=== PATIENT | male | born 1980 | race Two or more races ===

== ENCOUNTER 2019-06-28 13:00 | Inpatient (IN) | payer BC ==
[2019-06-28] MEDS ORDERED: Sodium Chloride 0.9% 10 ML Syringe FLUSH PRN (13:08)
[2019-06-28] MEDS ORDERED: Sodium Chloride 0.9% 1,000 ML IV SCH (13:15)
--- NOTE | 2019-06-28 14:37 | CT ---
Head CT Technique: Multiple axial sections through the brain were obtained. Intravenous contrast was not utilized. Comparison: No prior intracranial imaging is available. Findings: Ventricles along with basal cisterns and sulci over the convexities are within normal limits for the patient's age. No abnormal parenchymal densities are seen. No evidence of intracranial hemorrhage. No midline shift or mass effect is seen. Bone window settings were reviewed which show no acute calvarial abnormality. Mastoid sinuses are clear. Visualized paranasal sinuses are also clear. Impression: 1. Nothing acute is seen on noncontrast head CT exam. Diagnostic code #1
--- NOTE | 2019-06-28 14:39 | EDM.PDOC ---
ED HPI GENERAL MEDICAL PROBLEM - General Chief Complaint: Syncope Stated Complaint: [facility] Time Seen by Provider: 06/28/19 13:08 Source of Information: Reports: Patient, EMS, Family History Limitations: Reports: No Limitations - History of Present Illness INITIAL COMMENTS - FREE TEXT/NARRATIVE: The patient presents by [facility] for syncope. He was at work and complained that he did not feel well. He then put his hand on his knees and then he laid over on the ground. He was drooling and not responding. He had no seizure activity. When he came to he was quite when he talked and was confused. He knew who he was and where he was but not the time. He has no headache, fever, chills, cough, congestion, runny nose, chest pain, shortness of breath, abdominal pain, nausea or vomiting. He did not take anything to hurt himself. He has been depressed lately his and him are getting a divorce. He has type II diabetes and his blood sugar was good on the way in by EMS. Onset: Sudden Duration: Minutes: Severity: Moderate Improves with: Reports: None Worsens with: Reports: None Associated Symptoms: Reports: Confusion. Denies: Chest Pain, Cough, Fever/ Chills, Headaches, Nausea/Vomiting, Shortness of Breath - Related Data Allergies Allergy/AdvReac Type Severity Reaction Status Date / Time No Known Allergies Allergy Verified 06/28/19 13:05 Past Medical History Cardiovascular History: Reports: High Cholesterol Endocrine/Metabolic History: Reports: Diabetes, Type I Social & Family History - Tobacco Use Smoking Status *Q: Current Every Day Smoker Years of Tobacco use: 2 Packs/Tins Daily: 0.5 - Caffeine Use Caffeine Use: Reports: Energy Drinks - Recreational Drug Use Recreational Drug Use: No ED ROS GENERAL - Review of Systems Review Of Systems: See Below Constitutional: Reports: Malaise, Weakness, Fatigue HEENT: Reports: No Symptoms Respiratory: Reports: No Symptoms Cardiovascular: Reports: Syncope. Denies: Chest Pain Endocrine: Reports: No Symptoms GI/Abdominal: Reports: No Symptoms : Reports: No Symptoms Musculoskeletal: Reports: No Symptoms Skin: Reports: No Symptoms Neurological: Reports: Confusion, Syncope, Weakness. Denies: Headache - Physical Exam Exam: See Below Exam Limited By: No Limitations General Appearance: Alert, No Apparent Distress Ears: Normal External Exam Nose: Normal Inspection Head Exam: Atraumatic, Normocephalic Neck: Normal Inspection Respiratory/Chest: No Respiratory Distress, Lungs Clear, Normal Breath Sounds Cardiovascular: Regular Rate, Rhythm, No Edema, No Murmur Neuro Exam (Abbreviated): Other (Sleepy but he will wake up and follow commands and answer questions) EKG INTERPRETATION EKG Date: 06/28/19 Time: 13:17 Rhythm: Other (Sinus tachycardia) Rate (Beats/Min): 106 [place]: Normal P-Wave: Present QRS: Normal ST-T: Other (Flattened T waves in the inferior leads) QT: Normal Course - Vital Signs Last Recorded V/S: Last Vital Signs Temp 97.1 F 06/28/19 13:40 Pulse 116 H 06/28/19 15:38 Resp 25 H 06/28/19 15:38 BP 98/63 06/28/19 15:38 Pulse Ox 95 06/28/19 15:04 - Orders/Labs/Meds Orders: Active Orders 24 hr Category Date Time Status Cardiac Monitoring [RC] . DIRECTED Care 06/28/19 13:08 Active EKG Documentation Completion [RC] STAT Care 06/28/19 13:14 Active Peripheral IV Care [RC] . DIRECTED Care 06/28/19 13:09 Active Lactated Ringers [Ringers, Lactated] 1,000 ml Med 06/28/19 16:06 Active IV .BOLUS Sodium Chloride 0.9% [Normal Saline] 1,000 ml Med 06/28/19 13:15 Active IV .BOLUS Sodium Chloride 0.9% [Saline Flush] Med 06/28/19 13:08 Active 10 ml FLUSH ASDIRECTED PRN Peripheral IV Insertion Adult [OM.PC] Stat Oth 06/28/19 13:08 Ordered Medication Orders Sodium Chloride (Normal Saline) 1,000 mls @ 1,000 mls/hr IV .BOLUS OTTONIEL Last Admin: 06/28/19 13:23 Dose: 1,000 mls/hr Lactated Ringer's (Ringers, Lactated) 1,000 mls @ 1,000 mls/hr IV .BOLUS ONE Stop: 06/28/19 17:05 Last Admin: 06/28/19 16:18 Dose: 1,000 mls/hr Sodium Chloride (Saline Flush) 10 ml FLUSH ASDIRECTED PRN PRN Reason: Keep Vein Open Last Admin: 06/28/19 13:25 Dose: 10 ml Labs: Laboratory Tests 06/28/19 06/28/19 06/28/19 Range/Units 13:30 13:30 13:30 WBC 11.73 H (4.23-9.07) K/mm3 RBC 5.49 (4.63-6.08) M/mm3 Hgb 17.5 (13.7-17.5) gm/dl Hct 51.6 H (40.1-51.0) % MCV 94.0 H (79.0-92.2) fl MCH 31.9 (25.7-32.2) pg MCHC 33.9 (32.2-35.5) g/dl RDW Std Deviation 45.6 H (35.1-43.9) fL Plt Count 214 (163-337) K/mm3 MPV 10.8 (9.4-12.3) fl Neut % (Auto) 74.8 H (34.0-67.9) % Lymph % (Auto) 16.8 L (21.8-53.1) % [place] % (Auto) 7.4 (5.3-12.2) % Eos % (Auto) 0.6 L (0.8-7.0) Baso % (Auto) 0.2 (0.1-1.2) % Neut # (Auto) 8.78 H (1.78-5.38) K/mm3 Lymph # (Auto) 1.97 (1.32-3.57) K/mm3 [place] # (Auto) 0.87 H (0.30-0.82) K/mm3 Eos # (Auto) 0.07 (0.04-0.54) K/mm3 Baso # (Auto) 0.02 (0.01-0.08) K/mm3 D-Dimer, Quantitative (0.19-0.50) mg/L Sodium 142 (136-145) mEq/L Potassium 3.5 (3.5-5.1) mEq/L Chloride 104 (98-107) mEq/L Carbon Dioxide 25 (21-32) mEq/L Anion Gap 16.5 H (5-15) BUN 15 (7-18) mg/dL Creatinine 1.0 (0.7-1.3) mg/dL Est Cr Clr Drug Dosing 103.42 mL/min Estimated GFR (MDRD) > 60 (>60) mL/min BUN/Creatinine Ratio 15.0 (14-18) Glucose 144 H (74-106) mg/dL Calcium 9.4 (8.5-10.1) mg/dL Magnesium 1.9 (1.8-2.4) mg/dl Total Bilirubin 1.2 H (0.2-1.0) mg/dL AST 17 (15-37) U/L ALT 40 (16-63) U/L Alkaline Phosphatase 58 (46-116) U/L Troponin I < 0.017 (0.00-0.056) ng/mL Total Protein 8.1 (6.4-8.2) g/dl Albumin 4.1 (3.4-5.0) g/dl Globulin 4.0 gm/dL Albumin/Globulin Ratio 1.0 (1-2) Free T4 (0.76-1.46) ng/dL TSH 3rd Generation 5.026 H (0.358-3.74) uIU/mL Salicylates (2.8-20) mg/dL Urine Opiates Screen (QAFDLJ=134) Ur Buprenorphine Scrn (CUTOFF=10) Ur Oxycodone Screen (NAG4QP=980) Urine Methadone Screen (CGA7CH=554) Ur Propoxyphene Screen (ZPPNXZ=881) Acetaminophen (10-30) ug/mL Ur Barbiturates Screen (RQBOVY=586) Ur Tricyclics Screen (UYFTPI=920) Ur Phencyclidine Scrn (CUTOFF=25) Ur Amphetamine Screen (XHNMED=942) U Methamphetamines Scrn (VIPYLW=995) U Benzodiazepines Scrn (WISTCZ=134) U Cocaine Metab Screen (HHWIPA=559) U Marijuana (THC) Screen (CUTOFF=50) Ethyl Alcohol 0.00 (0.00) gm% 06/28/19 06/28/19 06/28/19 Range/Units 13:30 13:30 13:30 WBC (4.23-9.07) K/mm3 RBC (4.63-6.08) M/mm3 Hgb (13.7-17.5) gm/dl Hct (40.1-51.0) % MCV (79.0-92.2) fl MCH (25.7-32.2) pg MCHC (32.2-35.5) g/dl RDW Std Deviation (35.1-43.9) fL Plt Count (163-337) K/mm3 MPV (9.4-12.3) fl Neut % (Auto) (34.0-67.9) % Lymph % (Auto) (21.8-53.1) % [place] % (Auto) (5.3-12.2) % Eos % (Auto) (0.8-7.0) Baso % (Auto) (0.1-1.2) % Neut # (Auto) (1.78-5.38) K/mm3 Lymph # (Auto) (1.32-3.57) K/mm3 [place] # (Auto) (0.30-0.82) K/mm3 Eos # (Auto) (0.04-0.54) K/mm3 Baso # (Auto) (0.01-0.08) K/mm3 D-Dimer, Quantitative (0.19-0.50) mg/L Sodium (136-145) mEq/L Potassium (3.5-5.1) mEq/L Chloride (98-107) mEq/L Carbon Dioxide (21-32) mEq/L Anion Gap (5-15) BUN (7-18) mg/dL Creatinine (0.7-1.3) mg/dL Est Cr Clr Drug Dosing mL/min Estimated GFR (MDRD) (>60) mL/min BUN/Creatinine Ratio (14-18) Glucose (74-106) mg/dL Calcium (8.5-10.1) mg/dL Magnesium (1.8-2.4) mg/dl Total Bilirubin (0.2-1.0) mg/dL AST (15-37) U/L ALT (16-63) U/L Alkaline Phosphatase (46-116) U/L Troponin I (0.00-0.056) ng/mL Total Protein (6.4-8.2) g/dl Albumin (3.4-5.0) g/dl Globulin gm/dL Albumin/Globulin Ratio (1-2) Free T4 1.31 (0.76-1.46) ng/dL TSH 3rd Generation (0.358-3.74) uIU/mL Salicylates 0.8 L (2.8-20) mg/dL Urine Opiates Screen (BOJLCM=643) Ur Buprenorphine Scrn (CUTOFF=10) Ur Oxycodone Screen (STV3JS=796) Urine Methadone Screen (MCK6SF=593) Ur Propoxyphene Screen (FKOTEH=191) Acetaminophen 0 L (10-30) ug/mL Ur Barbiturates Screen (GEMLXG=605) Ur Tricyclics Screen (YADWWH=506) Ur Phencyclidine Scrn (CUTOFF=25) Ur Amphetamine Screen (RTSDYB=318) U Methamphetamines Scrn (ZRVBYY=108) U Benzodiazepines Scrn (YNFZAK=239) U Cocaine Metab Screen (IKTSNN=565) U Marijuana (THC) Screen (CUTOFF=50) Ethyl Alcohol (0.00) gm% 06/28/19 06/28/19 Range/Units 13:30 15:26 WBC (4.23-9.07) K/mm3 RBC (4.63-6.08) M/mm3 Hgb (13.7-17.5) gm/dl Hct (40.1-51.0) % MCV (79.0-92.2) fl MCH (25.7-32.2) pg MCHC (32.2-35.5) g/dl RDW Std Deviation (35.1-43.9) fL Plt Count (163-337) K/mm3 MPV (9.4-12.3) fl Neut % (Auto) (34.0-67.9) % Lymph % (Auto) (21.8-53.1) % [place] % (Auto) (5.3-12.2) % Eos % (Auto) (0.8-7.0) Baso % (Auto) (0.1-1.2) % Neut # (Auto) (1.78-5.38) K/mm3 Lymph # (Auto) (1.32-3.57) K/mm3 [place] # (Auto) (0.30-0.82) K/mm3 Eos # (Auto) (0.04-0.54) K/mm3 Baso # (Auto) (0.01-0.08) K/mm3 D-Dimer, Quantitative 0.22 (0.19-0.50) mg/L Sodium (136-145) mEq/L Potassium (3.5-5.1) mEq/L Chloride (98-107) mEq/L Carbon Dioxide (21-32) mEq/L Anion Gap (5-15) BUN (7-18) mg/dL Creatinine (0.7-1.3) mg/dL Est Cr Clr Drug Dosing mL/min Estimated GFR (MDRD) (>60) mL/min BUN/Creatinine Ratio (14-18) Glucose (74-106) mg/dL Calcium (8.5-10.1) mg/dL Magnesium (1.8-2.4) mg/dl Total Bilirubin (0.2-1.0) mg/dL AST (15-37) U/L ALT (16-63) U/L Alkaline Phosphatase (46-116) U/L Troponin I (0.00-0.056) ng/mL Total Protein (6.4-8.2) g/dl Albumin (3.4-5.0) g/dl Globulin gm/dL Albumin/Globulin Ratio (1-2) Free T4 (0.76-1.46) ng/dL TSH 3rd Generation (0.358-3.74) uIU/mL Salicylates (2.8-20) mg/dL Urine Opiates Screen Negative (LTGKFJ=198) Ur Buprenorphine Scrn Negative (CUTOFF=10) Ur Oxycodone Screen Negative (NYE8GR=838) Urine Methadone Screen Negative (SSK0GS=722) Ur Propoxyphene Screen Negative (OFGKRL=924) Acetaminophen (10-30) ug/mL Ur Barbiturates Screen Negative (TIGYUU=034) Ur Tricyclics Screen Negative (XWFDEK=865) Ur Phencyclidine Scrn Negative (CUTOFF=25) Ur Amphetamine Screen Negative (FCXUJF=968) U Methamphetamines Scrn Negative (AYQNMD=242) U Benzodiazepines Scrn Negative (FBAQIT=941) U Cocaine Metab Screen Negative (PIFRBZ=915) U Marijuana (THC) Screen Negative (CUTOFF=50) Ethyl Alcohol (0.00) gm% Meds: Medications Generic Name Dose Route Start Last Admin Trade Name Freq PRN Reason Stop Dose Admin Sodium Chloride 1,000 mls @ 1,000 mls/hr 06/28/19 13:15 06/28/19 13:23 Normal Saline IV 1,000 mls/hr .BOLUS OTTONIEL Administration Lactated Ringer's 1,000 mls @ 1,000 mls/hr 06/28/19 16:06 06/28/19 16:18 Ringers, Lactated IV 06/28/19 17:05 1,000 mls/hr .BOLUS ONE Administration Sodium Chloride 10 ml 06/28/19 13:08 06/28/19 13:25 Saline Flush FLUSH 10 ml ASDIRECTED PRN Administration Keep Vein Open - Re-Assessments/Exams Free Text/Narrative Re-Assessment/Exam: 06/28/19 14:51 I ordered an IV NS 1L bolus, EKG, CT of his head, labs and urine drug screen. 06/28/19 14:59 His EKG shows a sinus tachycardia with some flattened T waves. The CT of his head shows nothing acute. 06/28/19 15:00 His WBC was elevated at 11.73. His D-dimer is negative. His glucose is elevated at 144. His free T4 is normal. His TSH is elevated at 5.026. His salicylates and acetaminophen are normal. His ETOH is 0. I am waiting for his drug screen. 06/28/19 16:25 His drug screen is negative. At this time, I am not sure what is going on with him. His soon to be ex- thinks he overdosed but his brother does not think that is possible. He has been with him the past few weeks. His BP did drop to 67. I ordered another liter of fluid. That did come back up before the bolus is in. I called Dr Joyce and he agreed to the admission. He wanted our secondary social studies teacher to come see him. Departure - Departure Time of Disposition: 16:30 Disposition: Refer to Observation Condition: Fair Clinical Impression: Confusion Syncope Qualifiers: Syncope type: unspecified Qualified Code(s): R55 - Syncope and collapse Hypotension Qualifiers: Hypotension type: unspecified hypotension type Qualified Code(s): I95.9 - Hypotension, unspecified - Discharge Information Referrals: PCP,Unknown [Primary Care Provider] - Forms: ED Department Discharge - My Orders Last 24 Hours: My Active Orders 06/28/19 13:08 Cardiac Monitoring [RC] . DIRECTED Sodium Chloride 0.9% [Saline Flush] 10 ml FLUSH ASDIRECTED PRN Peripheral IV Insertion Adult [OM.PC] Stat 06/28/19 13:09 Peripheral IV Care [RC] . DIRECTED 06/28/19 13:14 EKG Documentation Completion [RC] STAT 06/28/19 13:15 Sodium Chloride 0.9% [Normal Saline] 1,000 ml IV .BOLUS 06/28/19 16:06 Lactated Ringers [Ringers, Lactated] 1,000 ml IV .BOLUS - Assessment/Plan Last 24 Hours: My Active Orders 06/28/19 13:08 Cardiac Monitoring [RC] . DIRECTED Sodium Chloride 0.9% [Saline Flush] 10 ml FLUSH ASDIRECTED PRN Peripheral IV Insertion Adult [OM.PC] Stat 06/28/19 13:09 Peripheral IV Care [RC] . DIRECTED 06/28/19 13:14 EKG Documentation Completion [RC] STAT 06/28/19 13:15 Sodium Chloride 0.9% [Normal Saline] 1,000 ml IV .BOLUS 06/28/19 16:06 Lactated Ringers [Ringers, Lactated] 1,000 ml IV .BOLUS
[2019-06-28] MEDS ORDERED: Lactated Ringers 1,000 ML IV ONE (16:06)
[2019-06-28] MEDS ORDERED: Lactated Ringers 1,000 ML IV SCH (17:30)
[2019-06-28] MEDS ORDERED: Docusate Sodium 100 MG Cap PO PRN (18:10)
[2019-06-28] MEDS ORDERED: Bisacodyl 5 MG Tab PO PRN (18:10)
[2019-06-28] MEDS ORDERED: Albuterol/Ipratropium 3.0-0.5 MG/3 ML Neb Soln NEB PRN (18:10)
[2019-06-28] MEDS ORDERED: Promethazine 6.25 MG in Sodium Chloride 0.9% 50 ML IV PRN (18:10)
[2019-06-28] MEDS ORDERED: Polyethylene Glycol 3350 Powder 17 GM Packet PO PRN (18:10)
[2019-06-28] MEDS ORDERED: Ondansetron 4 MG/2 ML SDV IV PRN (18:10)
[2019-06-28] MEDS ORDERED: Acetaminophen 325 MG Tab PO PRN (18:10)
[2019-06-28] MEDS ORDERED: HYDROmorphone 0.5 MG/0.5 ML Syringe IVPUSH PRN (18:10)
[2019-06-28] MEDS ORDERED: Acetaminophen/HYDROcodone 325-5 MG Tab PO PRN (18:10)
[2019-06-28] MEDS ORDERED: LORazepam 2 MG/ML SDV IVPUSH ONE ×2 (18:49→18:50)
[2019-06-28] MEDS ORDERED: Thiamine 100 MG in Sodium Chloride 0.9% 50 ML IV ONE (18:55)
[2019-06-28] MEDS ORDERED: chlordiazePOXIDE 25 MG Cap PO PRN (18:55)
[2019-06-28] MEDS ORDERED: cloNIDine 0.1 MG Tab PO PRN (18:55)
[2019-06-28] MEDS ORDERED: Multivitamins,Therapeutic Tab PO ONE (18:55)
[2019-06-28] MEDS ORDERED: Folic Acid 50 MG/10 ML MDV SUBCUT ONE (18:55)
[2019-06-28] MEDS ORDERED: Haloperidol Lactate 5 MG/ML SDV IM PRN (18:55)
[2019-06-28] MEDS ORDERED: LORazepam 2 MG/ML SDV IVPUSH PRN (19:02)
[2019-06-28] MEDS ORDERED: cefTRIAXone 2 GM in Sodium Chloride 0.9% 100 ML IV SCH ×2 (19:30→23:00)
--- NOTE | 2019-06-28 19:38 | CR ---
Chest: Portable view of the chest was obtained. Comparison: No prior chest imaging is available. Heart size and mediastinum are within normal limits for portable technique. Lungs are clear with no acute parenchymal change. Bony structures appear within normal limits for portable technique. Impression: 1. Nothing acute is seen on portable chest x-ray. Diagnostic code #1
[2019-06-28] MEDS ORDERED: Vancomycin 2 GM in Sodium Chloride 0.9% 500 ML IV ONE ×2 (19:45→22:30)
[2019-06-28] MEDS: Dextrose 5%-0.9% NaCl 1,000 ML IV SCH (19:51)
[2019-06-28] MEDS ORDERED: Thiamine 100 MG in Sodium Chloride 0.9% 100 ML IV ONE (20:00)
[2019-06-28] MEDS ORDERED: 50% Dextrose in Water 50 ML Syringe IVPUSH PRN (21:28)
--- NOTE | 2019-06-28 22:17 | PCM.SN ---
- Free Text/Narrative Note: 2100 called to room 12 for sinal tap with opening pressure. Consent obtained. Patient in RLD position sterile technique through out, unable to obtain space. Reposition patient to sitting L2-3 CSF obtained with opening pressure of 29 mm H2O in the manometer. Four test tubes of CSF were obtained with 2-4 ml of CSF in each one and sent to lab. Report to RN and Dr. Joyce. Out of room at 2206.
--- NOTE | 2019-06-28 22:21 | PCM.PREANE ---
Preanesthetic Assessment - Procedure Proposed Procedure: Pre- assessment for Spinal Tap - Anesthesia/Transfusion/Family Hx Anesthesia History: Prior Anesthesia Without Reaction Family History of Anesthesia Reaction: No Transfusion History: No Prior Transfusion(s) - Review of Systems General: Weakness, Fatigue, Malaise Pulmonary: Other (obstucive sleep apnea) Cardiovascular: Other (patient unable to report) Gastrointestinal: No Symptoms Neurological: Confusion, Other (patient lethargic ) - Physical Assessment Vital Signs: Last Vital Signs Temp 36.8 C 06/28/19 20:18 Pulse 117 H 06/28/19 20:32 Resp 34 H 06/28/19 20:18 BP 130/88 06/28/19 20:32 Pulse Ox 98 06/28/19 20:32 Height: 1.78 m Weight: 139.507 kg ASA Class: 3 Mental Status: Other (arouse to stimulus) Airway Class: Mallampati = 3 Thyro-Mental Finger Breadths: 2 Mouth Opening Finger Breadths: 2 ROM/Head Extension: Full Lungs: Clear to Auscultation, Normal Respiratory Effort Cardiovascular: Regular Rate, Regular Rhythm - Lab Values: Laboratory Last Values WBC 11.73 K/mm3 (4.23-9.07) H 06/28/19 13:30 RBC 5.49 M/mm3 (4.63-6.08) 06/28/19 13:30 Hgb 17.5 gm/dl (13.7-17.5) 06/28/19 13:30 Hct 51.6 % (40.1-51.0) H 06/28/19 13:30 MCV 94.0 fl (79.0-92.2) H 06/28/19 13:30 MCH 31.9 pg (25.7-32.2) 06/28/19 13:30 MCHC 33.9 g/dl (32.2-35.5) 06/28/19 13:30 RDW Std Deviation 45.6 fL (35.1-43.9) H 06/28/19 13:30 Plt Count 214 K/mm3 (163-337) 06/28/19 13:30 MPV 10.8 fl (9.4-12.3) 06/28/19 13:30 Neut % (Auto) 74.8 % (34.0-67.9) H 06/28/19 13:30 Lymph % (Auto) 16.8 % (21.8-53.1) L 06/28/19 13:30 [place] % (Auto) 7.4 % (5.3-12.2) 06/28/19 13:30 Eos % (Auto) 0.6 (0.8-7.0) L 06/28/19 13:30 Baso % (Auto) 0.2 % (0.1-1.2) 06/28/19 13:30 Neut # (Auto) 8.78 K/mm3 (1.78-5.38) H 06/28/19 13:30 Lymph # (Auto) 1.97 K/mm3 (1.32-3.57) 06/28/19 13:30 [place] # (Auto) 0.87 K/mm3 (0.30-0.82) H 06/28/19 13:30 Eos # (Auto) 0.07 K/mm3 (0.04-0.54) 06/28/19 13:30 Baso # (Auto) 0.02 K/mm3 (0.01-0.08) 06/28/19 13:30 ESR 3 mm/hr (0-15) 06/28/19 19:50 D-Dimer, Quantitative 0.22 mg/L (0.19-0.50) 06/28/19 13:30 Sodium 142 mEq/L (136-145) 06/28/19 13:30 Potassium 3.5 mEq/L (3.5-5.1) 06/28/19 13:30 Chloride 104 mEq/L (98-107) 06/28/19 13:30 Carbon Dioxide 25 mEq/L (21-32) 06/28/19 13:30 Anion Gap 16.5 (5-15) H 06/28/19 13:30 BUN 15 mg/dL (7-18) 06/28/19 13:30 Creatinine 1.0 mg/dL (0.7-1.3) 06/28/19 13:30 Est Cr Clr Drug Dosing 103.42 mL/min 06/28/19 13:30 Estimated GFR (MDRD) > 60 mL/min (>60) 06/28/19 13:30 BUN/Creatinine Ratio 15.0 (14-18) 06/28/19 13:30 Glucose 144 mg/dL (74-106) H 06/28/19 13:30 POC Glucose 96 mg/dL (70-105) 06/28/19 19:03 Calcium 9.4 mg/dL (8.5-10.1) 06/28/19 13:30 Magnesium 1.9 mg/dl (1.8-2.4) 06/28/19 13:30 Total Bilirubin 1.2 mg/dL (0.2-1.0) H 06/28/19 13:30 AST 17 U/L (15-37) 06/28/19 13:30 ALT 40 U/L (16-63) 06/28/19 13:30 Alkaline Phosphatase 58 U/L (46-116) 06/28/19 13:30 Ammonia 18 umol/L (11-32) 06/28/19 19:50 Troponin I < 0.017 ng/mL (0.00-0.056) 06/28/19 13:30 C-Reactive Protein < 0.2 mg/dL (<1.0) 06/28/19 19:50 Total Protein 8.1 g/dl (6.4-8.2) 06/28/19 13:30 Albumin 4.1 g/dl (3.4-5.0) 06/28/19 13:30 Globulin 4.0 gm/dL 06/28/19 13:30 Albumin/Globulin Ratio 1.0 (1-2) 06/28/19 13:30 Free T4 1.31 ng/dL (0.76-1.46) 06/28/19 13:30 TSH 3rd Generation 5.026 uIU/mL (0.358-3.74) H 06/28/19 13:30 Salicylates 0.8 mg/dL (2.8-20) L 06/28/19 13:30 Urine Opiates Screen Negative (VTOXQZ=900) 06/28/19 15:26 Ur Buprenorphine Scrn Negative (CUTOFF=10) 06/28/19 15:26 Ur Oxycodone Screen Negative (NEL2IC=279) 06/28/19 15:26 Urine Methadone Screen Negative (QUM2ZQ=030) 06/28/19 15:26 Ur Propoxyphene Screen Negative (CALYED=739) 06/28/19 15:26 Acetaminophen 0 ug/mL (10-30) L 06/28/19 13:30 Ur Barbiturates Screen Negative (QILGUI=477) 06/28/19 15:26 Ur Tricyclics Screen Negative (FZQHKF=362) 06/28/19 15:26 Ur Phencyclidine Scrn Negative (CUTOFF=25) 06/28/19 15:26 Ur Amphetamine Screen Negative (KIVXUC=426) 06/28/19 15:26 U Methamphetamines Scrn Negative (FUVUVF=854) 06/28/19 15:26 U Benzodiazepines Scrn Negative (FNWMNI=618) 06/28/19 15:26 U Cocaine Metab Screen Negative (NHEQEA=547) 06/28/19 15:26 U Marijuana (THC) Screen Negative (CUTOFF=50) 06/28/19 15:26 Ethyl Alcohol 0.00 gm% (0.00) 06/28/19 13:30 - Allergies Allergies/Adverse Reactions: Allergies Allergy/AdvReac Type Severity Reaction Status Date / Time No Known Allergies Allergy Verified 06/28/19 13:05 - Anesthesia Plan Pre-Op Medication Ordered: None - Acknowledgements Anesthesia Type Planned: Spinal (Spinal tap with openning pressure) Pt an Appropriate Candidate for the Planned Anesthesia: Yes Alternatives and Risks of Anesthesia Discussed w Pt/Guardian: Yes Pt/Guardian Understands and Agrees with Anesthesia Plan: Yes PreAnesthesia Questionnaire Cardiovascular History: Reports: High Cholesterol Genitourinary History: Reports: UTI, Recurrent Musculoskeletal History: Reports: Back Pain, Chronic, Neck Pain, Chronic Neurological History: Reports: None Psychiatric History: Reports: Anxiety, Depression Endocrine/Metabolic History: Reports: Diabetes, Type II, Obesity/BMI 30+ Hematologic History: Reports: None Immunologic History: Reports: None Oncologic (Cancer) History: Reports: None Dermatologic History: Reports: Other (See Below) Other Dermatologic History: mercy to left shoulder/arm - Past Surgical History GI Surgical History: Reports: Bariatric Procedure, Other (See Below) - SUBSTANCE USE Smoking Status *Q: Current Every Day Smoker Tobacco Use Within Last Twelve Months: Cigarettes, Smokeless Tobacco Second Hand Smoke Exposure: Yes Days Per Week of Alcohol Use: 5 Number of Drinks Per Day: 6 Total Drinks Per Week: 30 Recreational Drug Use History: No - CURRENT (IN HOUSE) MEDS Current Meds: Current Medications Acetaminophen (Tylenol) 650 mg PO Q4H PRN PRN Reason: Pain (Mild 1-3)/fever Hydrocodone Bitart/Acetaminophen ([place] 325-5 Mg) 1 tab PO Q4H PRN PRN Reason: Pain (moderate 4-6) Albuterol/Ipratropium (Duoneb 3.0-0.5 Mg/3 Ml) 3 ml NEB Q4H PRN PRN Reason: Shortness Of Breath/wheezing Bisacodyl (Dulcolax) 5 mg PO DAILY PRN PRN Reason: Constipation Chlordiazepoxide HCl (Librium) 25 mg PO Q8H PRN PRN Reason: Withdrawal Symptoms Clonidine HCl (Catapres) 0.1 mg PO Q4H PRN PRN Reason: Agitation Dexamethasone (Dexamethasone) 20 mg IVPUSH Q6H [facility] Dextrose/Water (Dextrose 50% In Water) 50 ml IVPUSH ASDIRECTED PRN PRN Reason: Hypoglycemia Docusate Sodium (Colace) 100 mg PO BID PRN PRN Reason: Constipation Folic Acid (Folic Acid) 1 mg PO DAILY [facility] Stop: 07/01/19 09:01 Haloperidol Lactate (Haldol) 2 mg IM Q4H PRN PRN Reason: Agitation Hydromorphone HCl (Dilaudid) 0.25 mg IVPUSH Q2H PRN PRN Reason: Pain (severe 7-10) Promethazine HCl 6.25 mg/ (Sodium Chloride) 50.25 mls @ 100 mls/hr IV Q6H PRN PRN Reason: Nausea/Vomiting Dextrose/Sodium Chloride (Dextrose 5%-Normal Saline) 1,000 mls @ 125 mls/hr IV ASDIRECTED [facility] Last Admin: 06/28/19 19:51 Dose: 125 mls/hr Thiamine HCl 100 mg/ Sodium (Chloride) 51 mls @ 100 mls/hr IV DAILY [facility] Ceftriaxone Sodium 2 gm/ (Sodium Chloride) 100 mls @ 200 mls/hr IV Q24H [facility] Acyclovir 1,000 mg/ Sodium (Chloride) 120 mls @ 100 mls/hr IV Q8H [facility] Vancomycin HCl 2 gm/ Sodium (Chloride) 500 mls @ 250 mls/hr IV ONETIME ONE Stop: 06/29/19 00:29 Vancomycin HCl 1.5 gm/ Sodium (Chloride) 500 mls @ 333.333 mls/hr IV Q8H [facility] Insulin Human Lispro (Humalog) 0 unit SUBCUT Q6H [facility]; Protocol Lorazepam (Ativan) 1 mg IV Q6H PRN PRN Reason: Anxiety Lorazepam (Ativan) 0 mg IVPUSH Q4H PRN; Protocol PRN Reason: Withdrawal Symptoms Ondansetron HCl (Zofran) 4 mg IV Q6H PRN PRN Reason: Nausea/Vomiting Pantoprazole Sodium (Protonix Iv) 40 mg IV Q12HR [facility] Polyethylene Glycol (Miralax) 17 gm PO DAILY PRN PRN Reason: Constipation Senna/Docusate Sodium (Senna Plus) 1 tab PO BID PRN PRN Reason: Constipation Sodium Chloride (Saline Flush) 10 ml FLUSH ASDIRECTED PRN PRN Reason: Keep Vein Open Last Admin: 06/28/19 13:25 Dose: 10 ml Vancomycin HCl (Pharmacy To Dose - Vancomycin) 1 dose .XX ASDIRECTED [facility] Discontinued Medications Folic Acid (Folic Acid) 1 mg SUBCUT ONETIME ONE Stop: 06/28/19 18:56 Last Admin: 06/28/19 20:22 Dose: 1 mg Sodium Chloride (Normal Saline) 1,000 mls @ 1,000 mls/hr IV .BOLUS [facility] Last Admin: 06/28/19 13:23 Dose: 1,000 mls/hr Lactated Ringer's (Ringers, Lactated) 1,000 mls @ 1,000 mls/hr IV .BOLUS ONE Stop: 06/28/19 17:05 Last Admin: 06/28/19 16:18 Dose: 1,000 mls/hr Lactated Ringer's (Ringers, Lactated) 1,000 mls @ 150 mls/hr IV ASDIRECTED [facility] Last Admin: 06/28/19 17:31 Dose: 150 mls/hr Vancomycin HCl 1,000 mg/ (Sodium Chloride) 250 mls @ 166.667 mls/hr IV Q12H [facility] Last Admin: 06/28/19 19:55 Dose: Not Given Vancomycin HCl 1.5 gm/ Sodium (Chloride) 500 mls @ 333.333 mls/hr IV Q8H [facility] Thiamine HCl 100 mg/ Sodium (Chloride) 101 mls @ 198.039 mls/hr IV ONETIME ONE Stop: 06/28/19 20:30 Last Admin: 06/28/19 20:28 Dose: 198.039 mls/hr Lorazepam (Ativan) 3 mg IVPUSH ONETIME ONE Stop: 06/28/19 18:51 Last Admin: 06/28/19 19:08 Dose: 3 mg Multivitamins (Thera) 1 each PO ONETIME ONE Stop: 06/28/19 18:56
[2019-06-28] MEDS: Pantoprazole 40 MG Vial IV SCH (22:24)
[2019-06-28] MEDS: Dexamethasone 4 MG/ML SDV IVPUSH SCH (22:30)
[2019-06-28] MEDS: Insulin Lispro 100 Units/ML 3 ML Vial SUBCUT SCH (23:31)
[2019-06-29] MEDS: LORazepam 2 MG/ML SDV IV PRN ×3 (01:56→20:24)
[2019-06-29] MEDS ORDERED: cefTRIAXone 2 GM in Sodium Chloride 0.9% 100 ML IV SCH (02:00)
[2019-06-29] MEDS: Dexamethasone 4 MG/ML SDV IVPUSH SCH (02:04)
[2019-06-29] MEDS ORDERED: Vancomycin 1.5 GM in Sodium Chloride 0.9% 500 ML IV SCH (04:00)
[2019-06-29] MEDS: Dextrose 5%-0.9% NaCl 1,000 ML IV SCH (04:11)
[2019-06-29] MEDS: Vancomycin 1.5 GM in Sodium Chloride 0.9% 500 ML IV SCH ×2 (05:38→14:41)
[2019-06-29] MEDS: Insulin Lispro 100 Units/ML 3 ML Vial SUBCUT SCH ×4 (05:51→23:11)
[2019-06-29] MEDS: Dexamethasone 10 MG/ML SDV IVPUSH SCH ×3 (08:07→20:25)
[2019-06-29] MEDS: Folic Acid 1 MG Tab PO SCH (08:22)
[2019-06-29] MEDS: Pantoprazole 40 MG Vial IV SCH (08:24)
[2019-06-29] MEDS ORDERED: Magnesium Sulfate/Water 2 GM in Premix Bag 1 BAG IV ONE (08:49)
[2019-06-29] MEDS ORDERED: LORazepam 2 MG/ML SDV IVPUSH ONE (08:57)
[2019-06-29] MEDS ORDERED: Thiamine 100 MG in Sodium Chloride 0.9% 50 ML IV SCH (09:00)
[2019-06-29] MEDS ORDERED: Thiamine 200 MG/2 ML MDV IVPUSH SCH (09:00)
[2019-06-29] MEDS ORDERED: Gadobenate Dimeglumine 529 MG/ML 20 ML SDV IVPUSH ONE (09:15)
[2019-06-29] MEDS ORDERED: Sodium Chloride 0.9% 10 ML Syringe FLUSH PRN (09:15)
[2019-06-29] MEDS ORDERED: Sodium Chloride 0.9% 10 ML SDV IV ONE (09:15)
--- NOTE | 2019-06-29 09:55 | PCM.HP.2 ---
<PayneRoyal - Last Filed: 06/29/19 11:44> H&P History of Present Illness - General Date of Service: 06/29/19 Admit Problem/Dx: Admission Diagnosis/Problem Admission Diagnosis/Problem Hypotension Source of Information: Patient, EMS Notes Reviewed, Family History Limitations: Reports: No Limitations, Altered Mental Status - History of Present Illness Initial Comments - Free Text/Narative: Pt presents to med/surg upon admission from ED due to altered mental status. Pt was at work yesterday when he suddenly became weak, and laid on the ground and lost consciousness. Pt states he did not feel dizzy or lightheaded before this episode. Per his brother, pt was salivating and immobile. When pt came back to consciousness was completely obtunded. Pt's brother was concerned about a stroke and called the ambulance immediately. Pt denies illness preceding the event. Pt was obtunded and unable to give a history upon his admission to the hospital. History was given by his brother, who knows him very well and visits him multiple times every day. Pt's brother states that pt has been experiencing extreme life stressors lately due to a divorce with his . The brother states that the pt has been depressed, but has not had suicidal ideation. Apparently the ex- has accused pt of alcohol abuse, claiming he drinks one liter of alcohol per day. Pt's brother outright denies this claim, as he visits his brother 3 times every day, and has made sure there is no alcohol in the house. The brother also states that the pt has had gastric bypass surgery, so drinking this much alcohol would be very difficult for him. The brother denies any possibility that the pt may have overdosed on one of his prescription medications. Per the pt's brother, as well as nursing staff, pt was completely disoriented upon admission and was unable to cooperate with cares or answer questions appropriately. Family was very concerned. Pt was alert, oriented, and answering questions appropriately during the interview this morning. Pt had labs drawn in ER showing WBC 11.73, HCT 51.6, Neutrophils 8.78, anion gap 16.5, glucose 144, TSH 5.026. UA and tox screen negative. No acute changes on head CT. Pt had a hypotensive episode in the ED that responded to fluid bolus. EKG shows nothing acute. - Related Data Allergies/Adverse Reactions: Allergies Allergy/AdvReac Type Severity Reaction Status Date / Time No Known Allergies Allergy Verified 06/28/19 13:05 Home Medications: Home Meds DULoxetine HCl [Cymbalta] 30 mg PO DAILY 06/29/19 [History] DULoxetine HCl [Duloxetine HCl] 60 mg PO DAILY 06/29/19 [History] Gabapentin [Neurontin] 600 mg PO BEDTIME 06/29/19 [History] Methocarbamol 500 mg PO QID PRN 06/29/19 [History] buPROPion [buPROPion XL] 150 mg PO DAILY 06/29/19 [History] metFORMIN HCl [Metformin HCl ER] 500 mg PO DAILY 06/29/19 [History] traMADol [Ultram] 50 mg PO Q4H PRN 06/29/19 [History] traZODone HCl [Trazodone HCl] 100 mg PO BEDTIME 06/29/19 [History] Past Medical History Cardiovascular History: Reports: High Cholesterol Genitourinary History: Reports: UTI, Recurrent Musculoskeletal History: Reports: Back Pain, Chronic, Neck Pain, Chronic Neurological History: Reports: None Psychiatric History: Reports: Anxiety, Depression Endocrine/Metabolic History: Reports: Diabetes, Type II, Obesity/BMI 30+ Hematologic History: Reports: None Immunologic History: Reports: None Oncologic (Cancer) History: Reports: None Dermatologic History: Reports: Other (See Below) Other Dermatologic History: mercy to left shoulder/arm - Past Surgical History GI Surgical History: Reports: Bariatric Procedure, Other (See Below) Social & Family History - Family History Family Medical History: Noncontributory - Tobacco Use Smoking Status *Q: Current Every Day Smoker Years of Tobacco use: 1 Packs/Tins Daily: 0.5 Used Tobacco, but Quit: No Second Hand Smoke Exposure: Yes - Caffeine Use Caffeine Use: Reports: Coffee, Energy Drinks Other Caffeine Use: Brother states that the pt drinks multiple energy drinks per day (6-8 drinks) - Alcohol Use Days Per Week of Alcohol Use: 5 Number of Drinks Per Day: 6 Total Drinks Per Week: 30 - Recreational Drug Use Recreational Drug Use: No H&P Review of Systems - Review of Systems: Review Of Systems: See Below General: Reports: Weakness, Fatigue. Denies: Fever, Chills HEENT: Denies: Headaches, Sore Throat, Visual Changes Pulmonary: Reports: No Symptoms Cardiovascular: Reports: No Symptoms Gastrointestinal: Reports: No Symptoms Genitourinary: Reports: No Symptoms Musculoskeletal: Reports: No Symptoms Skin: Reports: Rash Psychiatric: Reports: Confusion, Depression Neurological: Reports: Confusion Hematologic/Lymphatic: Reports: No Symptoms Immunologic: Reports: No Symptoms Exam - Exam Exam: See Below - Vital Signs Vital Signs: Last Vital Signs Temp 98.6 F 06/29/19 07:33 Pulse 119 H 06/29/19 07:33 Resp 36 H 06/29/19 07:33 BP 148/72 H 06/29/19 07:33 Pulse Ox 94 L 06/29/19 07:33 Weight: 139.933 kg - Exam General: Alert, Oriented, Cooperative, Other HEENT: Conjunctiva Clear, EACs Clear, EOMI, Hearing Intact, Mucosa Moist & Colby , Nares Patent, Normal Nasal Septum, Pupils Equal, Pupils Reactive Neck: Supple, Trachea Midline, Full Range of Motion. No: JVD Lungs: Clear to Auscultation, Normal Respiratory Effort. No: Crackles, Rales, Rhonchi, Wheezing Cardiovascular: Regular Rhythm, Normal S1, Normal S2, Tachycardia. No: Systolic Murmur, Diastolic Murmur GI/Abdominal Exam: Normal Bowel Sounds, Soft, Non-Tender, No Organomegaly, No Distention, No Abnormal Bruit, No Mass (Male) Exam: Deferred Rectal (Males) Exam: Deferred Back Exam: Normal Inspection, Full Range of Motion Extremities: Normal Inspection, Normal Range of Motion, Non-Tender, No Pedal Edema, Normal Capillary Refill. No: Joint Swelling, Leg Pain Skin: Warm, Dry, Intact, Rash (Left flank, hip) Neurological: Cranial Nerves Intact, Normal Speech, Normal Tone Neuro Extensive - Mental Status: Alert, Oriented x3, Normal Mood/Affect, Normal Cognition, Memory Intact Neuro Extensive - Motor, Sensory, Reflexes: CN II-XII Intact Psychiatric: Alert, Normal Affect, Normal Mood - Patient Data Lab Results Last 24 hrs: Laboratory Results - last 24 hr 06/28/19 06/28/19 06/28/19 Range/Units 13:30 13:30 13:30 WBC 11.73 H (4.23-9.07) K/mm3 RBC 5.49 (4.63-6.08) M/mm3 Hgb 17.5 (13.7-17.5) gm/dl Hct 51.6 H (40.1-51.0) % MCV 94.0 H (79.0-92.2) fl MCH 31.9 (25.7-32.2) pg MCHC 33.9 (32.2-35.5) g/dl RDW Std Deviation 45.6 H (35.1-43.9) fL Plt Count 214 (163-337) K/mm3 MPV 10.8 (9.4-12.3) fl Neut % (Auto) 74.8 H (34.0-67.9) % Lymph % (Auto) 16.8 L (21.8-53.1) % Woodward % (Auto) 7.4 (5.3-12.2) % Eos % (Auto) 0.6 L (0.8-7.0) Baso % (Auto) 0.2 (0.1-1.2) % Neut # (Auto) 8.78 H (1.78-5.38) K/mm3 Lymph # (Auto) 1.97 (1.32-3.57) K/mm3 Woodward # (Auto) 0.87 H (0.30-0.82) K/mm3 Eos # (Auto) 0.07 (0.04-0.54) K/mm3 Baso # (Auto) 0.02 (0.01-0.08) K/mm3 Manual Slide Review ESR (0-15) mm/hr D-Dimer, Quantitative (0.19-0.50) mg/L Sodium 142 (136-145) mEq/L Potassium 3.5 (3.5-5.1) mEq/L Chloride 104 (98-107) mEq/L Carbon Dioxide 25 (21-32) mEq/L Anion Gap 16.5 H (5-15) BUN 15 (7-18) mg/dL Creatinine 1.0 (0.7-1.3) mg/dL Est Cr Clr Drug Dosing 103.42 mL/min Estimated GFR (MDRD) > 60 (>60) mL/min BUN/Creatinine Ratio 15.0 (14-18) Glucose 144 H (74-106) mg/dL POC Glucose (70-105) mg/dL Calcium 9.4 (8.5-10.1) mg/dL Magnesium 1.9 (1.8-2.4) mg/dl Total Bilirubin 1.2 H (0.2-1.0) mg/dL AST 17 (15-37) U/L ALT 40 (16-63) U/L Alkaline Phosphatase 58 (46-116) U/L Ammonia (11-32) umol/L Troponin I < 0.017 (0.00-0.056) ng/mL C-Reactive Protein (<1.0) mg/dL Total Protein 8.1 (6.4-8.2) g/dl Albumin 4.1 (3.4-5.0) g/dl Globulin 4.0 gm/dL Albumin/Globulin Ratio 1.0 (1-2) Free T4 (0.76-1.46) ng/dL TSH 3rd Generation 5.026 H (0.358-3.74) uIU/mL Urine Color (Yellow) Urine Appearance (Clear) Urine pH (5.0-8.0) Ur Specific O'Brien (1.005-1.030) Urine Protein (Negative) Urine Glucose (UA) (Negative) Urine Ketones (Negative) Urine Occult Blood (Negative) Urine Nitrite (Negative) Urine Bilirubin (Negative) Urine Urobilinogen (0.2-1.0) Ur Leukocyte Esterase (Negative) Urine RBC (0-5) /hpf Urine WBC (0-5) /hpf Ur Epithelial Cells (0-5) /hpf Urine Bacteria (FEW) /hpf CSF Tube Number CSF Volume ml CSF Appearance (CLEAR) CSF Color CSF Supernatant Appear CSF WBC (0-8) /uL CSF RBC (0-8) /mm3 CSF Seg Neutrophils CSF Lymphocytes CSF Glucose (40-70) mg/dl CSF Total Protein (15-45) mg/dl Salicylates (2.8-20) mg/dL Urine Opiates Screen (SGNRZX=489) Ur Buprenorphine Scrn (CUTOFF=10) Ur Oxycodone Screen (GNE1GP=461) Urine Methadone Screen (PDW8IH=730) Ur Propoxyphene Screen (MCWRYX=122) Acetaminophen (10-30) ug/mL Ur Barbiturates Screen (QXGTAE=891) Ur Tricyclics Screen (OTBHZW=806) Ur Phencyclidine Scrn (CUTOFF=25) Ur Amphetamine Screen (HEDPXF=687) U Methamphetamines Scrn (SBDJTQ=482) U Benzodiazepines Scrn (DXRSFL=178) U Cocaine Metab Screen (WDVCWG=123) U Marijuana (THC) Screen (CUTOFF=50) Ethyl Alcohol 0.00 (0.00) gm% 06/28/19 06/28/19 06/28/19 Range/Units 13:30 13:30 13:30 WBC (4.23-9.07) K/mm3 RBC (4.63-6.08) M/mm3 Hgb (13.7-17.5) gm/dl Hct (40.1-51.0) % MCV (79.0-92.2) fl MCH (25.7-32.2) pg MCHC (32.2-35.5) g/dl RDW Std Deviation (35.1-43.9) fL Plt Count (163-337) K/mm3 MPV (9.4-12.3) fl Neut % (Auto) (34.0-67.9) % Lymph % (Auto) (21.8-53.1) % Woodward % (Auto) (5.3-12.2) % Eos % (Auto) (0.8-7.0) Baso % (Auto) (0.1-1.2) % Neut # (Auto) (1.78-5.38) K/mm3 Lymph # (Auto) (1.32-3.57) K/mm3 Woodward # (Auto) (0.30-0.82) K/mm3 Eos # (Auto) (0.04-0.54) K/mm3 Baso # (Auto) (0.01-0.08) K/mm3 Manual Slide Review ESR (0-15) mm/hr D-Dimer, Quantitative (0.19-0.50) mg/L Sodium (136-145) mEq/L Potassium (3.5-5.1) mEq/L Chloride (98-107) mEq/L Carbon Dioxide (21-32) mEq/L Anion Gap (5-15) BUN (7-18) mg/dL Creatinine (0.7-1.3) mg/dL Est Cr Clr Drug Dosing mL/min Estimated GFR (MDRD) (>60) mL/min BUN/Creatinine Ratio (14-18) Glucose (74-106) mg/dL POC Glucose (70-105) mg/dL Calcium (8.5-10.1) mg/dL Magnesium (1.8-2.4) mg/dl Total Bilirubin (0.2-1.0) mg/dL AST (15-37) U/L ALT (16-63) U/L Alkaline Phosphatase (46-116) U/L Ammonia (11-32) umol/L Troponin I (0.00-0.056) ng/mL C-Reactive Protein (<1.0) mg/dL Total Protein (6.4-8.2) g/dl Albumin (3.4-5.0) g/dl Globulin gm/dL Albumin/Globulin Ratio (1-2) Free T4 1.31 (0.76-1.46) ng/dL TSH 3rd Generation (0.358-3.74) uIU/mL Urine Color (Yellow) Urine Appearance (Clear) Urine pH (5.0-8.0) Ur Specific O'Brien (1.005-1.030) Urine Protein (Negative) Urine Glucose (UA) (Negative) Urine Ketones (Negative) Urine Occult Blood (Negative) Urine Nitrite (Negative) Urine Bilirubin (Negative) Urine Urobilinogen (0.2-1.0) Ur Leukocyte Esterase (Negative) Urine RBC (0-5) /hpf Urine WBC (0-5) /hpf Ur Epithelial Cells (0-5) /hpf Urine Bacteria (FEW) /hpf CSF Tube Number CSF Volume ml CSF Appearance (CLEAR) CSF Color CSF Supernatant Appear CSF WBC (0-8) /uL CSF RBC (0-8) /mm3 CSF Seg Neutrophils CSF Lymphocytes CSF Glucose (40-70) mg/dl CSF Total Protein (15-45) mg/dl Salicylates 0.8 L (2.8-20) mg/dL Urine Opiates Screen (QNSACR=895) Ur Buprenorphine Scrn (CUTOFF=10) Ur Oxycodone Screen (HVJ1CU=743) Urine Methadone Screen (WGT2JU=087) Ur Propoxyphene Screen (OGUHRY=808) Acetaminophen 0 L (10-30) ug/mL Ur Barbiturates Screen (TCLZHV=480) Ur Tricyclics Screen (TFYUPF=138) Ur Phencyclidine Scrn (CUTOFF=25) Ur Amphetamine Screen (EZVAYZ=180) U Methamphetamines Scrn (EBGBAG=215) U Benzodiazepines Scrn (XTGAOM=711) U Cocaine Metab Screen (SMZNRG=856) U Marijuana (THC) Screen (CUTOFF=50) Ethyl Alcohol (0.00) gm% 06/28/19 06/28/19 06/28/19 Range/Units 13:30 15:26 19:03 WBC (4.23-9.07) K/mm3 RBC (4.63-6.08) M/mm3 Hgb (13.7-17.5) gm/dl Hct (40.1-51.0) % MCV (79.0-92.2) fl MCH (25.7-32.2) pg MCHC (32.2-35.5) g/dl RDW Std Deviation (35.1-43.9) fL Plt Count (163-337) K/mm3 MPV (9.4-12.3) fl Neut % (Auto) (34.0-67.9) % Lymph % (Auto) (21.8-53.1) % Woodward % (Auto) (5.3-12.2) % Eos % (Auto) (0.8-7.0) Baso % (Auto) (0.1-1.2) % Neut # (Auto) (1.78-5.38) K/mm3 Lymph # (Auto) (1.32-3.57) K/mm3 Woodward # (Auto) (0.30-0.82) K/mm3 Eos # (Auto) (0.04-0.54) K/mm3 Baso # (Auto) (0.01-0.08) K/mm3 Manual Slide Review ESR (0-15) mm/hr D-Dimer, Quantitative 0.22 (0.19-0.50) mg/L Sodium (136-145) mEq/L Potassium (3.5-5.1) mEq/L Chloride (98-107) mEq/L Carbon Dioxide (21-32) mEq/L Anion Gap (5-15) BUN (7-18) mg/dL Creatinine (0.7-1.3) mg/dL Est Cr Clr Drug Dosing mL/min Estimated GFR (MDRD) (>60) mL/min BUN/Creatinine Ratio (14-18) Glucose (74-106) mg/dL POC Glucose 96 (70-105) mg/dL Calcium (8.5-10.1) mg/dL Magnesium (1.8-2.4) mg/dl Total Bilirubin (0.2-1.0) mg/dL AST (15-37) U/L ALT (16-63) U/L Alkaline Phosphatase (46-116) U/L Ammonia (11-32) umol/L Troponin I (0.00-0.056) ng/mL C-Reactive Protein (<1.0) mg/dL Total Protein (6.4-8.2) g/dl Albumin (3.4-5.0) g/dl Globulin gm/dL Albumin/Globulin Ratio (1-2) Free T4 (0.76-1.46) ng/dL TSH 3rd Generation (0.358-3.74) uIU/mL Urine Color (Yellow) Urine Appearance (Clear) Urine pH (5.0-8.0) Ur Specific O'Brien (1.005-1.030) Urine Protein (Negative) Urine Glucose (UA) (Negative) Urine Ketones (Negative) Urine Occult Blood (Negative) Urine Nitrite (Negative) Urine Bilirubin (Negative) Urine Urobilinogen (0.2-1.0) Ur Leukocyte Esterase (Negative) Urine RBC (0-5) /hpf Urine WBC (0-5) /hpf Ur Epithelial Cells (0-5) /hpf Urine Bacteria (FEW) /hpf CSF Tube Number CSF Volume ml CSF Appearance (CLEAR) CSF Color CSF Supernatant Appear CSF WBC (0-8) /uL CSF RBC (0-8) /mm3 CSF Seg Neutrophils CSF Lymphocytes CSF Glucose (40-70) mg/dl CSF Total Protein (15-45) mg/dl Salicylates (2.8-20) mg/dL Urine Opiates Screen Negative (CESCBW=929) Ur Buprenorphine Scrn Negative (CUTOFF=10) Ur Oxycodone Screen Negative (TKE8CJ=534) Urine Methadone Screen Negative (YMD3IG=200) Ur Propoxyphene Screen Negative (FGAKQR=154) Acetaminophen (10-30) ug/mL Ur Barbiturates Screen Negative (TAFLWX=348) Ur Tricyclics Screen Negative (QXMKIF=934) Ur Phencyclidine Scrn Negative (CUTOFF=25) Ur Amphetamine Screen Negative (RLNUBL=400) U Methamphetamines Scrn Negative (BKARMJ=568) U Benzodiazepines Scrn Negative (EHEFOI=686) U Cocaine Metab Screen Negative (LWLJOW=424) U Marijuana (THC) Screen Negative (CUTOFF=50) Ethyl Alcohol (0.00) gm% 06/28/19 06/28/19 06/28/19 Range/Units 19:50 19:50 19:50 WBC (4.23-9.07) K/mm3 RBC (4.63-6.08) M/mm3 Hgb (13.7-17.5) gm/dl Hct (40.1-51.0) % MCV (79.0-92.2) fl MCH (25.7-32.2) pg MCHC (32.2-35.5) g/dl RDW Std Deviation (35.1-43.9) fL Plt Count (163-337) K/mm3 MPV (9.4-12.3) fl Neut % (Auto) (34.0-67.9) % Lymph % (Auto) (21.8-53.1) % Woodward % (Auto) (5.3-12.2) % Eos % (Auto) (0.8-7.0) Baso % (Auto) (0.1-1.2) % Neut # (Auto) (1.78-5.38) K/mm3 Lymph # (Auto) (1.32-3.57) K/mm3 Woodward # (Auto) (0.30-0.82) K/mm3 Eos # (Auto) (0.04-0.54) K/mm3 Baso # (Auto) (0.01-0.08) K/mm3 Manual Slide Review ESR 3 (0-15) mm/hr D-Dimer, Quantitative (0.19-0.50) mg/L Sodium (136-145) mEq/L Potassium (3.5-5.1) mEq/L Chloride (98-107) mEq/L Carbon Dioxide (21-32) mEq/L Anion Gap (5-15) BUN (7-18) mg/dL Creatinine (0.7-1.3) mg/dL Est Cr Clr Drug Dosing mL/min Estimated GFR (MDRD) (>60) mL/min BUN/Creatinine Ratio (14-18) Glucose (74-106) mg/dL POC Glucose (70-105) mg/dL Calcium (8.5-10.1) mg/dL Magnesium (1.8-2.4) mg/dl Total Bilirubin (0.2-1.0) mg/dL AST (15-37) U/L ALT (16-63) U/L Alkaline Phosphatase (46-116) U/L Ammonia 18 (11-32) umol/L Troponin I (0.00-0.056) ng/mL C-Reactive Protein < 0.2 (<1.0) mg/dL Total Protein (6.4-8.2) g/dl Albumin (3.4-5.0) g/dl Globulin gm/dL Albumin/Globulin Ratio (1-2) Free T4 (0.76-1.46) ng/dL TSH 3rd Generation (0.358-3.74) uIU/mL Urine Color (Yellow) Urine Appearance (Clear) Urine pH (5.0-8.0) Ur Specific O'Brien (1.005-1.030) Urine Protein (Negative) Urine Glucose (UA) (Negative) Urine Ketones (Negative) Urine Occult Blood (Negative) Urine Nitrite (Negative) Urine Bilirubin (Negative) Urine Urobilinogen (0.2-1.0) Ur Leukocyte Esterase (Negative) Urine RBC (0-5) /hpf Urine WBC (0-5) /hpf Ur Epithelial Cells (0-5) /hpf Urine Bacteria (FEW) /hpf CSF Tube Number CSF Volume ml CSF Appearance (CLEAR) CSF Color CSF Supernatant Appear CSF WBC (0-8) /uL CSF RBC (0-8) /mm3 CSF Seg Neutrophils CSF Lymphocytes CSF Glucose (40-70) mg/dl CSF Total Protein (15-45) mg/dl Salicylates (2.8-20) mg/dL Urine Opiates Screen (IYESMM=037) Ur Buprenorphine Scrn (CUTOFF=10) Ur Oxycodone Screen (TMJ0QJ=797) Urine Methadone Screen (JOM1HG=994) Ur Propoxyphene Screen (ITLMVD=315) Acetaminophen (10-30) ug/mL Ur Barbiturates Screen (LOQBOU=493) Ur Tricyclics Screen (JUIFVX=346) Ur Phencyclidine Scrn (CUTOFF=25) Ur Amphetamine Screen (TEZCAU=591) U Methamphetamines Scrn (JEFDHX=310) U Benzodiazepines Scrn (XSGDKP=848) U Cocaine Metab Screen (LVKRQP=526) U Marijuana (THC) Screen (CUTOFF=50) Ethyl Alcohol (0.00) gm% 06/28/19 06/28/19 06/28/19 Range/Units 22:00 22:00 22:47 WBC (4.23-9.07) K/mm3 RBC (4.63-6.08) M/mm3 Hgb (13.7-17.5) gm/dl Hct (40.1-51.0) % MCV (79.0-92.2) fl MCH (25.7-32.2) pg MCHC (32.2-35.5) g/dl RDW Std Deviation (35.1-43.9) fL Plt Count (163-337) K/mm3 MPV (9.4-12.3) fl Neut % (Auto) (34.0-67.9) % Lymph % (Auto) (21.8-53.1) % Woodward % (Auto) (5.3-12.2) % Eos % (Auto) (0.8-7.0) Baso % (Auto) (0.1-1.2) % Neut # (Auto) (1.78-5.38) K/mm3 Lymph # (Auto) (1.32-3.57) K/mm3 Woodward # (Auto) (0.30-0.82) K/mm3 Eos # (Auto) (0.04-0.54) K/mm3 Baso # (Auto) (0.01-0.08) K/mm3 Manual Slide Review ESR (0-15) mm/hr D-Dimer, Quantitative (0.19-0.50) mg/L Sodium (136-145) mEq/L Potassium (3.5-5.1) mEq/L Chloride (98-107) mEq/L Carbon Dioxide (21-32) mEq/L Anion Gap (5-15) BUN (7-18) mg/dL Creatinine (0.7-1.3) mg/dL Est Cr Clr Drug Dosing mL/min Estimated GFR (MDRD) (>60) mL/min BUN/Creatinine Ratio (14-18) Glucose (74-106) mg/dL POC Glucose 153 H (70-105) mg/dL Calcium (8.5-10.1) mg/dL Magnesium (1.8-2.4) mg/dl Total Bilirubin (0.2-1.0) mg/dL AST (15-37) U/L ALT (16-63) U/L Alkaline Phosphatase (46-116) U/L Ammonia (11-32) umol/L Troponin I (0.00-0.056) ng/mL C-Reactive Protein (<1.0) mg/dL Total Protein (6.4-8.2) g/dl Albumin (3.4-5.0) g/dl Globulin gm/dL Albumin/Globulin Ratio (1-2) Free T4 (0.76-1.46) ng/dL TSH 3rd Generation (0.358-3.74) uIU/mL Urine Color (Yellow) Urine Appearance (Clear) Urine pH (5.0-8.0) Ur Specific O'Brien (1.005-1.030) Urine Protein (Negative) Urine Glucose (UA) (Negative) Urine Ketones (Negative) Urine Occult Blood (Negative) Urine Nitrite (Negative) Urine Bilirubin (Negative) Urine Urobilinogen (0.2-1.0) Ur Leukocyte Esterase (Negative) Urine RBC (0-5) /hpf Urine WBC (0-5) /hpf Ur Epithelial Cells (0-5) /hpf Urine Bacteria (FEW) /hpf CSF Tube Number 2 CSF Volume 2 ml CSF Appearance Clear (CLEAR) CSF Color Colorless CSF Supernatant Appear No xanthochromia CSF WBC 2 (0-8) /uL CSF RBC 7 (0-8) /mm3 CSF Seg Neutrophils TNP CSF Lymphocytes TNP CSF Glucose 86.0 H (40-70) mg/dl CSF Total Protein 37.0 (15-45) mg/dl Salicylates (2.8-20) mg/dL Urine Opiates Screen (DRPPAW=365) Ur Buprenorphine Scrn (CUTOFF=10) Ur Oxycodone Screen (QWG5WB=097) Urine Methadone Screen (YOS6MO=129) Ur Propoxyphene Screen (IQBZYA=994) Acetaminophen (10-30) ug/mL Ur Barbiturates Screen (KQNPIG=143) Ur Tricyclics Screen (JZBHLD=002) Ur Phencyclidine Scrn (CUTOFF=25) Ur Amphetamine Screen (FLHDJJ=811) U Methamphetamines Scrn (VUFWEB=778) U Benzodiazepines Scrn (IHLCPT=075) U Cocaine Metab Screen (GPELQM=869) U Marijuana (THC) Screen (CUTOFF=50) Ethyl Alcohol (0.00) gm% 06/29/19 06/29/19 06/29/19 Range/Units 00:26 03:40 05:25 WBC 13.54 H (4.23-9.07) K/mm3 RBC 5.11 (4.63-6.08) M/mm3 Hgb 16.1 (13.7-17.5) gm/dl Hct 48.4 (40.1-51.0) % MCV 94.7 H (79.0-92.2) fl MCH 31.5 (25.7-32.2) pg MCHC 33.3 (32.2-35.5) g/dl RDW Std Deviation 45.6 H (35.1-43.9) fL Plt Count 214 (163-337) K/mm3 MPV 11.8 (9.4-12.3) fl Neut % (Auto) 95.2 H (34.0-67.9) % Lymph % (Auto) 3.3 L (21.8-53.1) % Woodward % (Auto) 1.3 L (5.3-12.2) % Eos % (Auto) 0 L (0.8-7.0) Baso % (Auto) 0.1 (0.1-1.2) % Neut # (Auto) 12.90 H (1.78-5.38) K/mm3 Lymph # (Auto) 0.45 L (1.32-3.57) K/mm3 Woodward # (Auto) 0.17 L (0.30-0.82) K/mm3 Eos # (Auto) 0.00 L (0.04-0.54) K/mm3 Baso # (Auto) 0.01 (0.01-0.08) K/mm3 Manual Slide Review Abnormal smear ESR (0-15) mm/hr D-Dimer, Quantitative (0.19-0.50) mg/L Sodium (136-145) mEq/L Potassium (3.5-5.1) mEq/L Chloride (98-107) mEq/L Carbon Dioxide (21-32) mEq/L Anion Gap (5-15) BUN (7-18) mg/dL Creatinine (0.7-1.3) mg/dL Est Cr Clr Drug Dosing mL/min Estimated GFR (MDRD) (>60) mL/min BUN/Creatinine Ratio (14-18) Glucose (74-106) mg/dL POC Glucose 153 H (70-105) mg/dL Calcium (8.5-10.1) mg/dL Magnesium (1.8-2.4) mg/dl Total Bilirubin (0.2-1.0) mg/dL AST (15-37) U/L ALT (16-63) U/L Alkaline Phosphatase (46-116) U/L Ammonia (11-32) umol/L Troponin I (0.00-0.056) ng/mL C-Reactive Protein (<1.0) mg/dL Total Protein (6.4-8.2) g/dl Albumin (3.4-5.0) g/dl Globulin gm/dL Albumin/Globulin Ratio (1-2) Free T4 (0.76-1.46) ng/dL TSH 3rd Generation (0.358-3.74) uIU/mL Urine Color Yellow (Yellow) Urine Appearance Clear (Clear) Urine pH 5.5 (5.0-8.0) Ur Specific O'Brien > or = 1.030 (1.005-1.030) Urine Protein Negative (Negative) Urine Glucose (UA) Negative (Negative) Urine Ketones Negative (Negative) Urine Occult Blood Negative (Negative) Urine Nitrite Negative (Negative) Urine Bilirubin Negative (Negative) Urine Urobilinogen 0.2 (0.2-1.0) Ur Leukocyte Esterase Negative (Negative) Urine RBC Not seen (0-5) /hpf Urine WBC 0-5 (0-5) /hpf Ur Epithelial Cells 0-5 (0-5) /hpf Urine Bacteria Not seen (FEW) /hpf CSF Tube Number CSF Volume ml CSF Appearance (CLEAR) CSF Color CSF Supernatant Appear CSF WBC (0-8) /uL CSF RBC (0-8) /mm3 CSF Seg Neutrophils CSF Lymphocytes CSF Glucose (40-70) mg/dl CSF Total Protein (15-45) mg/dl Salicylates (2.8-20) mg/dL Urine Opiates Screen (LALACO=352) Ur Buprenorphine Scrn (CUTOFF=10) Ur Oxycodone Screen (VWT2SZ=684) Urine Methadone Screen (SSF0IF=728) Ur Propoxyphene Screen (JIVXUH=197) Acetaminophen (10-30) ug/mL Ur Barbiturates Screen (MMRTDJ=652) Ur Tricyclics Screen (NOTGJV=319) Ur Phencyclidine Scrn (CUTOFF=25) Ur Amphetamine Screen (SIODMD=789) U Methamphetamines Scrn (HPLFAT=663) U Benzodiazepines Scrn (JTSVBR=155) U Cocaine Metab Screen (RBRDLH=750) U Marijuana (THC) Screen (CUTOFF=50) Ethyl Alcohol (0.00) gm% 06/29/19 06/29/19 Range/Units 05:25 05:47 WBC (4.23-9.07) K/mm3 RBC (4.63-6.08) M/mm3 Hgb (13.7-17.5) gm/dl Hct (40.1-51.0) % MCV (79.0-92.2) fl MCH (25.7-32.2) pg MCHC (32.2-35.5) g/dl RDW Std Deviation (35.1-43.9) fL Plt Count (163-337) K/mm3 MPV (9.4-12.3) fl Neut % (Auto) (34.0-67.9) % Lymph % (Auto) (21.8-53.1) % Woodward % (Auto) (5.3-12.2) % Eos % (Auto) (0.8-7.0) Baso % (Auto) (0.1-1.2) % Neut # (Auto) (1.78-5.38) K/mm3 Lymph # (Auto) (1.32-3.57) K/mm3 Woodward # (Auto) (0.30-0.82) K/mm3 Eos # (Auto) (0.04-0.54) K/mm3 Baso # (Auto) (0.01-0.08) K/mm3 Manual Slide Review ESR (0-15) mm/hr D-Dimer, Quantitative (0.19-0.50) mg/L Sodium 137 (136-145) mEq/L Potassium 4.1 (3.5-5.1) mEq/L Chloride 101 (98-107) mEq/L Carbon Dioxide 22 (21-32) mEq/L Anion Gap 18.1 H (5-15) BUN 8 (7-18) mg/dL Creatinine 1.1 (0.7-1.3) mg/dL Est Cr Clr Drug Dosing 94.02 mL/min Estimated GFR (MDRD) > 60 (>60) mL/min BUN/Creatinine Ratio 7.3 L (14-18) Glucose 217 H (74-106) mg/dL POC Glucose 168 H (70-105) mg/dL Calcium 9.0 (8.5-10.1) mg/dL Magnesium 1.4 L (1.8-2.4) mg/dl Total Bilirubin (0.2-1.0) mg/dL AST (15-37) U/L ALT (16-63) U/L Alkaline Phosphatase (46-116) U/L Ammonia (11-32) umol/L Troponin I (0.00-0.056) ng/mL C-Reactive Protein (<1.0) mg/dL Total Protein (6.4-8.2) g/dl Albumin (3.4-5.0) g/dl Globulin gm/dL Albumin/Globulin Ratio (1-2) Free T4 (0.76-1.46) ng/dL TSH 3rd Generation (0.358-3.74) uIU/mL Urine Color (Yellow) Urine Appearance (Clear) Urine pH (5.0-8.0) Ur Specific O'Brien (1.005-1.030) Urine Protein (Negative) Urine Glucose (UA) (Negative) Urine Ketones (Negative) Urine Occult Blood (Negative) Urine Nitrite (Negative) Urine Bilirubin (Negative) Urine Urobilinogen (0.2-1.0) Ur Leukocyte Esterase (Negative) Urine RBC (0-5) /hpf Urine WBC (0-5) /hpf Ur Epithelial Cells (0-5) /hpf Urine Bacteria (FEW) /hpf CSF Tube Number CSF Volume ml CSF Appearance (CLEAR) CSF Color CSF Supernatant Appear CSF WBC (0-8) /uL CSF RBC (0-8) /mm3 CSF Seg Neutrophils CSF Lymphocytes CSF Glucose (40-70) mg/dl CSF Total Protein (15-45) mg/dl Salicylates (2.8-20) mg/dL Urine Opiates Screen (ZGNPYG=532) Ur Buprenorphine Scrn (CUTOFF=10) Ur Oxycodone Screen (HZR3ZR=635) Urine Methadone Screen (MXZ0KS=897) Ur Propoxyphene Screen (UWYVBI=065) Acetaminophen (10-30) ug/mL Ur Barbiturates Screen (FKNAXS=100) Ur Tricyclics Screen (RFZCZW=286) Ur Phencyclidine Scrn (CUTOFF=25) Ur Amphetamine Screen (XKNOJO=647) U Methamphetamines Scrn (AKJYSM=814) U Benzodiazepines Scrn (SZBRXC=514) U Cocaine Metab Screen (IURVQL=507) U Marijuana (THC) Screen (CUTOFF=50) Ethyl Alcohol (0.00) gm% Result Diagrams: 06/29/19 05:25 06/29/19 05:25 Jerman Results Last 24 hrs: Microbiology 06/28/19 22:00 Gram Stain - Final Cerebral Spinal Fluid CSF Culture - Preliminary Problem List Initiated/Reviewed/Updated: Yes Orders Last 24hrs: Active Orders 24 hr Category Date Time Status Patient Status [ADT] Routine ADT 06/29/19 09:15 Active Antiembolic Devices [RC] BID Care 06/28/19 18:13 Active Blood Glucose Check, Bedside [RC] Q6HR Care 06/28/19 21:28 Active Height and Weight [RC] 04 Care 06/28/19 18:10 Active Intake and Output [RC] 04,16 Care 06/28/19 18:11 Active Notify Provider Consults [RC] ASDIRECTED Care 06/28/19 18:18 Active Notify Provider [RC] PRN Care 06/28/19 18:55 Active Oxygen Therapy [RC] PRN Care 06/28/19 18:10 Active RT Aerosol Therapy [RC] ASDIRECTED Care 06/28/19 18:13 Active Up With Assistance [RC] BID Care 06/28/19 18:10 Active Up ad Nany [RC] BID Care 06/28/19 18:10 Active VTE/DVT Education [RC] DAILY Care 06/28/19 18:10 Active Vital Signs [RC] Q4HR Care 06/28/19 18:10 Active Consult to Case Management/Tobacco Buyer [CONS] Cons 06/28/19 18:10 Active Routine Consult to Physician [CONS] Routine Cons 06/28/19 18:10 Active Consult to Spiritual Care [CONS] Routine Cons 06/28/19 18:10 Active OT Evaluation and Treatment [CONS] Routine Cons 06/28/19 18:10 Active PT Evaluation and Treatment [CONS] Routine Cons 06/28/19 18:10 Active Regular Diet [DIET] Diet 06/28/19 Dinner Active Ang Head wo Cont [MR] Routine Exams 06/29/19 08:00 Ordered Ang Neck w Cont [MR] Routine Exams 06/29/19 08:00 Ordered Brain wo Cont [MR] Routine Exams 06/29/19 08:00 Ordered BASIC METABOLIC PANEL,BMP [CHEM] AM Lab 06/30/19 05:11 Ordered BASIC METABOLIC PANEL,BMP [CHEM] AM Lab 07/01/19 05:11 Ordered BASIC METABOLIC PANEL,BMP [CHEM] AM Lab 07/02/19 05:11 Ordered BASIC METABOLIC PANEL,BMP [CHEM] AM Lab 07/03/19 05:11 Ordered CBC WITH AUTO DIFF [HEME] AM Lab 06/30/19 05:11 Ordered CBC WITH AUTO DIFF [HEME] AM Lab 07/01/19 05:11 Ordered CBC WITH AUTO DIFF [HEME] AM Lab 07/02/19 05:11 Ordered CBC WITH AUTO DIFF [HEME] AM Lab 07/03/19 05:11 Ordered CULTURE CSF + SMEAR Lab 06/28/19 22:00 Active [id number] [REF] Stat Lab 06/28/19 17:50 Received MAGNESIUM [CHEM] AM Lab 06/30/19 05:11 Ordered MAGNESIUM [CHEM] AM Lab 07/01/19 05:11 Ordered MAGNESIUM [CHEM] AM Lab 07/02/19 05:11 Ordered MAGNESIUM [CHEM] AM Lab 07/03/19 05:11 Ordered ME PANEL Routine Lab 06/28/19 22:00 Active RESPIRATORY PANEL Routine Lab 06/28/19 22:15 Received STREP PNEUMONIAE ANTIGEN [MREF] Routine Lab 06/28/19 19:15 Active UA W/MICROSCOPIC [URIN] AM Lab 06/29/19 03:40 Results VANCOMYCIN TROUGH [CHEM] Timed Lab 06/29/19 21:00 Ordered VDRL, CSF Stat Lab 06/28/19 22:00 Received Acetaminophen [Tylenol] Med 06/28/19 18:10 Active 650 mg PO Q4H PRN Acetaminophen/HYDROcodone [[place]ari[place] 325-5 MG] Med 06/28/19 18:10 Active 1 tab PO Q4H PRN Acyclovir [Zovirax] 1,000 mg Med 06/28/19 23:00 Active Sodium Chloride 0.9% [Normal Saline] 100 ml IV Q8H Albuterol/Ipratropium [DuoNeb 3.0-0.5 MG/3 ML] Med 06/28/19 18:10 Active 3 ml NEB Q4H PRN Bisacodyl [Dulcolax] Med 06/28/19 18:10 Active 5 mg PO DAILY PRN Dextrose 5%-0.9% NaCl [Dextrose 5%-Normal Saline] 1,000 Med 06/28/19 19:00 Active ml IV ASDIRECTED Dextrose 50% in Water Med 06/28/19 21:28 Active 50 ml IVPUSH ASDIRECTED PRN Docusate Sodium [Colace] Med 06/28/19 18:10 Active 100 mg PO BID PRN Docusate Sodium/Sennosides [Senna Plus] Med 06/28/19 18:10 Active 1 tab PO BID PRN Folic Acid Med 06/29/19 09:00 Active 1 mg PO DAILY HYDROmorphone [Dilaudid] Med 06/28/19 18:10 Active 0.25 mg IVPUSH Q2H PRN Haloperidol Lactate [Haldol] Med 06/28/19 18:55 Active 2 mg IM Q4H PRN Insulin Lispro [HumaLOG] Med 06/29/19 12:00 Active See Protocol SUBCUT Q6HR LORazepam [Ativan] Med 06/28/19 18:10 Active 1 mg IV Q6H PRN LORazepam [Ativan] Med 06/28/19 19:02 Active See Protocol IVPUSH Q4H PRN Magnesium Sulfate/Water [Magnesium Sulfate in Water Med 06/29/19 08:49 Active Premix] 2 gm Premix Bag 1 bag IV ONETIME Ondansetron [Zofran] Med 06/28/19 18:10 Active 4 mg IV Q6H PRN Pantoprazole [ProTONIX IV] Med 06/28/19 21:00 Active 40 mg IV Q12HR Pharmacy to Dose - Vancomycin Med 06/28/19 19:30 Active 1 dose .XX ASDIRECTED PRN Polyethylene Glycol 3350 [MiraLAX] Med 06/28/19 18:10 Active 17 gm PO DAILY PRN Promethazine [Phenergan] 6.25 mg Med 06/28/19 18:10 Active Sodium Chloride 0.9% [Normal Saline] 50 ml IV Q6H Sodium Chloride 0.9% [Saline Flush] Med 06/28/19 13:08 Active 10 ml FLUSH ASDIRECTED PRN Sodium Chloride 0.9% [Saline Flush] Med 06/29/19 09:15 Active 10 ml FLUSH ONETIME PRN Thiamine [Vitamin B-1] Med 06/29/19 09:00 Active 100 mg IVPUSH DAILY Vancomycin 1.5 gm Med 06/29/19 06:00 Active Sodium Chloride 0.9% [Normal Saline] 500 ml IV Q8H cefTRIAXone [Rocephin] 2 gm Med 06/28/19 23:00 Active Sodium Chloride 0.9% [Normal Saline] 100 ml IV Q24H chlordiazePOXIDE [Librium] Med 06/28/19 18:55 Active 25 mg PO Q8H PRN cloNIDine [Catapres] Med 06/28/19 18:55 Active 0.1 mg PO Q4H PRN dexAMETHasone [Dexamethasone] Med 06/29/19 08:00 Active 20 mg IVPUSH Q6H Isolation [COMM] Routine Oth 06/28/19 20:03 Ordered Peripheral IV Insertion Adult [OM.PC] Stat Oth 06/28/19 13:08 Ordered Seizure Precautions [OM.PC] Routine Oth 06/28/19 18:55 Ordered Sequential Compression Device [OM.PC] Per Unit Routine Ot 06/28/19 18:11 Ordered Resuscitation Status Routine Resus Stat 06/28/19 18:10 Ordered Medication Orders Acetaminophen (Tylenol) 650 mg PO Q4H PRN PRN Reason: Pain (Mild 1-3)/fever Hydrocodone Bitart/Acetaminophen (Darien 325-5 Mg) 1 tab PO Q4H PRN PRN Reason: Pain (moderate 4-6) Albuterol/Ipratropium (Duoneb 3.0-0.5 Mg/3 Ml) 3 ml NEB Q4H PRN PRN Reason: Shortness Of Breath/wheezing Bisacodyl (Dulcolax) 5 mg PO DAILY PRN PRN Reason: Constipation Chlordiazepoxide HCl (Librium) 25 mg PO Q8H PRN PRN Reason: Withdrawal Symptoms Clonidine HCl (Catapres) 0.1 mg PO Q4H PRN PRN Reason: Agitation Dexamethasone (Dexamethasone) 20 mg IVPUSH Q6H [place] Last Admin: 06/29/19 08:07 Dose: 20 mg Dextrose/Water (Dextrose 50% In Water) 50 ml IVPUSH ASDIRECTED PRN PRN Reason: Hypoglycemia Docusate Sodium (Colace) 100 mg PO BID PRN PRN Reason: Constipation Folic Acid (Folic Acid) 1 mg PO DAILY [facility] Stop: 07/01/19 09:01 Last Admin: 06/29/19 08:22 Dose: 1 mg Haloperidol Lactate (Haldol) 2 mg IM Q4H PRN PRN Reason: Agitation Hydromorphone HCl (Dilaudid) 0.25 mg IVPUSH Q2H PRN PRN Reason: Pain (severe 7-10) Promethazine HCl 6.25 mg/ (Sodium Chloride) 50.25 mls @ 100 mls/hr IV Q6H PRN PRN Reason: Nausea/Vomiting Dextrose/Sodium Chloride (Dextrose 5%-Normal Saline) 1,000 mls @ 125 mls/hr IV ASDIRECTED [facility] Last Admin: 06/29/19 04:11 Dose: 125 mls/hr Infusion: 06/29/19 03:51 Dose: 125 mls/hr Admin: 06/28/19 19:51 Dose: 125 mls/hr Vancomycin HCl 1.5 gm/ Sodium (Chloride) 500 mls @ 333.333 mls/hr IV Q8H [facility] Last Admin: 06/29/19 05:38 Dose: 333.333 mls/hr Acyclovir 1,000 mg/ Sodium (Chloride) 120 mls @ 100 mls/hr IV Q8H [facility] Last Admin: 06/29/19 06:00 Dose: 100 mls/hr Infusion: 06/29/19 00:20 Dose: 100 mls/hr Admin: 06/28/19 23:08 Dose: 100 mls/hr Ceftriaxone Sodium 2 gm/ (Sodium Chloride) 100 mls @ 200 mls/hr IV Q24H [facility] Last Admin: 06/28/19 23:31 Dose: 200 mls/hr Magnesium Sulfate 2 gm/ Premix 50 mls @ 25 mls/hr IV ONETIME ONE Stop: 06/29/19 10:48 Insulin Human Lispro (Humalog) 0 unit SUBCUT Q6HR [facility]; Protocol Lorazepam (Ativan) 1 mg IV Q6H PRN PRN Reason: Anxiety Last Admin: 06/29/19 09:14 Dose: 1 mg Admin: 06/29/19 01:56 Dose: 1 mg Lorazepam (Ativan) 0 mg IVPUSH Q4H PRN; Protocol PRN Reason: Withdrawal Symptoms Ondansetron HCl (Zofran) 4 mg IV Q6H PRN PRN Reason: Nausea/Vomiting Pantoprazole Sodium (Protonix Iv) 40 mg IV Q12HR [facility] Last Admin: 06/29/19 08:24 Dose: 40 mg Admin: 06/28/19 22:24 Dose: 40 mg Polyethylene Glycol (Miralax) 17 gm PO DAILY PRN PRN Reason: Constipation Senna/Docusate Sodium (Senna Plus) 1 tab PO BID PRN PRN Reason: Constipation Sodium Chloride (Saline Flush) 10 ml FLUSH ASDIRECTED PRN PRN Reason: Keep Vein Open Last Admin: 06/28/19 13:25 Dose: 10 ml Sodium Chloride (Saline Flush) 10 ml FLUSH ONETIME PRN PRN Reason: Keep Vein Open Stop: 06/29/19 18:00 Thiamine HCl (Vitamin B-1) 100 mg IVPUSH DAILY [facility] Last Admin: 06/29/19 08:22 Dose: 100 mg Vancomycin HCl (Pharmacy To Dose - Vancomycin) 1 dose .XX ASDIRECTED PRN PRN Reason: RX TO DOSE VANCOMYCIN Assessment/Plan Comment:: Assessment Acute: Altered Mental Status 2/2 toxic metabolic encephalopathy - DDx remains broad - cannot rule out stroke, TIA, meningitis, encephalitis at this time - LP negative at this time. 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 Reason for this is not clear as pt was treated aggressively. <Ant Joyce T - Last Filed: 06/29/19 18:11> H&P History of Present Illness - General Admit Problem/Dx: Admission Diagnosis/Problem Admission Diagnosis/Problem Hypotension Exam - Vital Signs Vital Signs: Last Vital Signs Temp 37.2 C 06/29/19 15:26 Pulse 119 H 06/29/19 15:26 Resp 36 H 06/29/19 15:26 BP 139/69 06/29/19 15:26 Pulse Ox 96 06/29/19 15:26 - Patient Data Lab Results Last 24 hrs: Laboratory Results - last 24 hr 06/28/19 06/28/19 06/28/19 Range/Units 19:03 19:50 19:50 WBC (4.23-9.07) K/mm3 RBC (4.63-6.08) M/mm3 Hgb (13.7-17.5) gm/dl Hct (40.1-51.0) % MCV (79.0-92.2) fl MCH (25.7-32.2) pg MCHC (32.2-35.5) g/dl RDW Std Deviation (35.1-43.9) fL Plt Count (163-337) K/mm3 MPV (9.4-12.3) fl Neut % (Auto) (34.0-67.9) % Lymph % (Auto) (21.8-53.1) % Woodward % (Auto) (5.3-12.2) % Eos % (Auto) (0.8-7.0) Baso % (Auto) (0.1-1.2) % Neut # (Auto) (1.78-5.38) K/mm3 Lymph # (Auto) (1.32-3.57) K/mm3 Woodward # (Auto) (0.30-0.82) K/mm3 Eos # (Auto) (0.04-0.54) K/mm3 Baso # (Auto) (0.01-0.08) K/mm3 Manual Slide Review ESR (0-15) mm/hr D-Dimer, Quantitative (0.19-0.50) mg/L Sodium (136-145) mEq/L Potassium (3.5-5.1) mEq/L Chloride (98-107) mEq/L Carbon Dioxide (21-32) mEq/L Anion Gap (5-15) BUN (7-18) mg/dL Creatinine (0.7-1.3) mg/dL Est Cr Clr Drug Dosing mL/min Estimated GFR (MDRD) (>60) mL/min BUN/Creatinine Ratio (14-18) Glucose (74-106) mg/dL POC Glucose 96 (70-105) mg/dL Lactic Acid (0.4-2.0) mmol/L Calcium (8.5-10.1) mg/dL Magnesium (1.8-2.4) mg/dl Ammonia 18 (11-32) umol/L C-Reactive Protein < 0.2 (<1.0) mg/dL Urine Color (Yellow) Urine Appearance (Clear) Urine pH (5.0-8.0) Ur Specific O'Brien (1.005-1.030) Urine Protein (Negative) Urine Glucose (UA) (Negative) Urine Ketones (Negative) Urine Occult Blood (Negative) Urine Nitrite (Negative) Urine Bilirubin (Negative) Urine Urobilinogen (0.2-1.0) Ur Leukocyte Esterase (Negative) Urine RBC (0-5) /hpf Urine WBC (0-5) /hpf Ur Epithelial Cells (0-5) /hpf Urine Bacteria (FEW) /hpf CSF Tube Number CSF Volume ml CSF Appearance (CLEAR) CSF Color CSF Supernatant Appear CSF WBC (0-8) /uL CSF RBC (0-8) /mm3 CSF Seg Neutrophils CSF Lymphocytes CSF Glucose (40-70) mg/dl CSF Total Protein (15-45) mg/dl 06/28/19 06/28/19 06/28/19 Range/Units 19:50 22:00 22:00 WBC (4.23-9.07) K/mm3 RBC (4.63-6.08) M/mm3 Hgb (13.7-17.5) gm/dl Hct (40.1-51.0) % MCV (79.0-92.2) fl MCH (25.7-32.2) pg MCHC (32.2-35.5) g/dl RDW Std Deviation (35.1-43.9) fL Plt Count (163-337) K/mm3 MPV (9.4-12.3) fl Neut % (Auto) (34.0-67.9) % Lymph % (Auto) (21.8-53.1) % Woodward % (Auto) (5.3-12.2) % Eos % (Auto) (0.8-7.0) Baso % (Auto) (0.1-1.2) % Neut # (Auto) (1.78-5.38) K/mm3 Lymph # (Auto) (1.32-3.57) K/mm3 Woodward # (Auto) (0.30-0.82) K/mm3 Eos # (Auto) (0.04-0.54) K/mm3 Baso # (Auto) (0.01-0.08) K/mm3 Manual Slide Review ESR 3 (0-15) mm/hr D-Dimer, Quantitative (0.19-0.50) mg/L Sodium (136-145) mEq/L Potassium (3.5-5.1) mEq/L Chloride (98-107) mEq/L Carbon Dioxide (21-32) mEq/L Anion Gap (5-15) BUN (7-18) mg/dL Creatinine (0.7-1.3) mg/dL Est Cr Clr Drug Dosing mL/min Estimated GFR (MDRD) (>60) mL/min BUN/Creatinine Ratio (14-18) Glucose (74-106) mg/dL POC Glucose (70-105) mg/dL Lactic Acid (0.4-2.0) mmol/L Calcium (8.5-10.1) mg/dL Magnesium (1.8-2.4) mg/dl Ammonia (11-32) umol/L C-Reactive Protein (<1.0) mg/dL Urine Color (Yellow) Urine Appearance (Clear) Urine pH (5.0-8.0) Ur Specific O'Brien (1.005-1.030) Urine Protein (Negative) Urine Glucose (UA) (Negative) Urine Ketones (Negative) Urine Occult Blood (Negative) Urine Nitrite (Negative) Urine Bilirubin (Negative) Urine Urobilinogen (0.2-1.0) Ur Leukocyte Esterase (Negative) Urine RBC (0-5) /hpf Urine WBC (0-5) /hpf Ur Epithelial Cells (0-5) /hpf Urine Bacteria (FEW) /hpf CSF Tube Number 2 CSF Volume 2 ml CSF Appearance Clear (CLEAR) CSF Color Colorless CSF Supernatant Appear No xanthochromia CSF WBC 2 (0-8) /uL CSF RBC 7 (0-8) /mm3 CSF Seg Neutrophils TNP CSF Lymphocytes TNP CSF Glucose 86.0 H (40-70) mg/dl CSF Total Protein 37.0 (15-45) mg/dl 06/28/19 06/29/19 06/29/19 Range/Units 22:47 00:26 03:40 WBC (4.23-9.07) K/mm3 RBC (4.63-6.08) M/mm3 Hgb (13.7-17.5) gm/dl Hct (40.1-51.0) % MCV (79.0-92.2) fl MCH (25.7-32.2) pg MCHC (32.2-35.5) g/dl RDW Std Deviation (35.1-43.9) fL Plt Count (163-337) K/mm3 MPV (9.4-12.3) fl Neut % (Auto) (34.0-67.9) % Lymph % (Auto) (21.8-53.1) % Woodward % (Auto) (5.3-12.2) % Eos % (Auto) (0.8-7.0) Baso % (Auto) (0.1-1.2) % Neut # (Auto) (1.78-5.38) K/mm3 Lymph # (Auto) (1.32-3.57) K/mm3 Woodward # (Auto) (0.30-0.82) K/mm3 Eos # (Auto) (0.04-0.54) K/mm3 Baso # (Auto) (0.01-0.08) K/mm3 Manual Slide Review ESR (0-15) mm/hr D-Dimer, Quantitative (0.19-0.50) mg/L Sodium (136-145) mEq/L Potassium (3.5-5.1) mEq/L Chloride (98-107) mEq/L Carbon Dioxide (21-32) mEq/L Anion Gap (5-15) BUN (7-18) mg/dL Creatinine (0.7-1.3) mg/dL Est Cr Clr Drug Dosing mL/min Estimated GFR (MDRD) (>60) mL/min BUN/Creatinine Ratio (14-18) Glucose (74-106) mg/dL POC Glucose 153 H 153 H (70-105) mg/dL Lactic Acid (0.4-2.0) mmol/L Calcium (8.5-10.1) mg/dL Magnesium (1.8-2.4) mg/dl Ammonia (11-32) umol/L C-Reactive Protein (<1.0) mg/dL Urine Color Yellow (Yellow) Urine Appearance Clear (Clear) Urine pH 5.5 (5.0-8.0) Ur Specific O'Brien > or = 1.030 (1.005-1.030) Urine Protein Negative (Negative) Urine Glucose (UA) Negative (Negative) Urine Ketones Negative (Negative) Urine Occult Blood Negative (Negative) Urine Nitrite Negative (Negative) Urine Bilirubin Negative (Negative) Urine Urobilinogen 0.2 (0.2-1.0) Ur Leukocyte Esterase Negative (Negative) Urine RBC Not seen (0-5) /hpf Urine WBC 0-5 (0-5) /hpf Ur Epithelial Cells 0-5 (0-5) /hpf Urine Bacteria Not seen (FEW) /hpf CSF Tube Number CSF Volume ml CSF Appearance (CLEAR) CSF Color CSF Supernatant Appear CSF WBC (0-8) /uL CSF RBC (0-8) /mm3 CSF Seg Neutrophils CSF Lymphocytes CSF Glucose (40-70) mg/dl CSF Total Protein (15-45) mg/dl 06/29/19 06/29/19 06/29/19 Range/Units 05:25 05:25 05:47 WBC 13.54 H (4.23-9.07) K/mm3 RBC 5.11 (4.63-6.08) M/mm3 Hgb 16.1 (13.7-17.5) gm/dl Hct 48.4 (40.1-51.0) % MCV 94.7 H (79.0-92.2) fl MCH 31.5 (25.7-32.2) pg MCHC 33.3 (32.2-35.5) g/dl RDW Std Deviation 45.6 H (35.1-43.9) fL Plt Count 214 (163-337) K/mm3 MPV 11.8 (9.4-12.3) fl Neut % (Auto) 95.2 H (34.0-67.9) % Lymph % (Auto) 3.3 L (21.8-53.1) % Woodward % (Auto) 1.3 L (5.3-12.2) % Eos % (Auto) 0 L (0.8-7.0) Baso % (Auto) 0.1 (0.1-1.2) % Neut # (Auto) 12.90 H (1.78-5.38) K/mm3 Lymph # (Auto) 0.45 L (1.32-3.57) K/mm3 Woodward # (Auto) 0.17 L (0.30-0.82) K/mm3 Eos # (Auto) 0.00 L (0.04-0.54) K/mm3 Baso # (Auto) 0.01 (0.01-0.08) K/mm3 Manual Slide Review Abnormal smear ESR (0-15) mm/hr D-Dimer, Quantitative (0.19-0.50) mg/L Sodium 137 (136-145) mEq/L Potassium 4.1 (3.5-5.1) mEq/L Chloride 101 (98-107) mEq/L Carbon Dioxide 22 (21-32) mEq/L Anion Gap 18.1 H (5-15) BUN 8 (7-18) mg/dL Creatinine 1.1 (0.7-1.3) mg/dL Est Cr Clr Drug Dosing 94.02 mL/min Estimated GFR (MDRD) > 60 (>60) mL/min BUN/Creatinine Ratio 7.3 L (14-18) Glucose 217 H (74-106) mg/dL POC Glucose 168 H (70-105) mg/dL Lactic Acid (0.4-2.0) mmol/L Calcium 9.0 (8.5-10.1) mg/dL Magnesium 1.4 L (1.8-2.4) mg/dl Ammonia (11-32) umol/L C-Reactive Protein (<1.0) mg/dL Urine Color (Yellow) Urine Appearance (Clear) Urine pH (5.0-8.0) Ur Specific O'Brien (1.005-1.030) Urine Protein (Negative) Urine Glucose (UA) (Negative) Urine Ketones (Negative) Urine Occult Blood (Negative) Urine Nitrite (Negative) Urine Bilirubin (Negative) Urine Urobilinogen (0.2-1.0) Ur Leukocyte Esterase (Negative) Urine RBC (0-5) /hpf Urine WBC (0-5) /hpf Ur Epithelial Cells (0-5) /hpf Urine Bacteria (FEW) /hpf CSF Tube Number CSF Volume ml CSF Appearance (CLEAR) CSF Color CSF Supernatant Appear CSF WBC (0-8) /uL CSF RBC (0-8) /mm3 CSF Seg Neutrophils CSF Lymphocytes CSF Glucose (40-70) mg/dl CSF Total Protein (15-45) mg/dl 06/29/19 06/29/19 06/29/19 Range/Units 11:29 11:50 11:58 WBC (4.23-9.07) K/mm3 RBC (4.63-6.08) M/mm3 Hgb (13.7-17.5) gm/dl Hct (40.1-51.0) % MCV (79.0-92.2) fl MCH (25.7-32.2) pg MCHC (32.2-35.5) g/dl RDW Std Deviation (35.1-43.9) fL Plt Count (163-337) K/mm3 MPV (9.4-12.3) fl Neut % (Auto) (34.0-67.9) % Lymph % (Auto) (21.8-53.1) % Woodward % (Auto) (5.3-12.2) % Eos % (Auto) (0.8-7.0) Baso % (Auto) (0.1-1.2) % Neut # (Auto) (1.78-5.38) K/mm3 Lymph # (Auto) (1.32-3.57) K/mm3 Woodward # (Auto) (0.30-0.82) K/mm3 Eos # (Auto) (0.04-0.54) K/mm3 Baso # (Auto) (0.01-0.08) K/mm3 Manual Slide Review ESR (0-15) mm/hr D-Dimer, Quantitative 0.36 (0.19-0.50) mg/L Sodium (136-145) mEq/L Potassium (3.5-5.1) mEq/L Chloride (98-107) mEq/L Carbon Dioxide (21-32) mEq/L Anion Gap (5-15) BUN (7-18) mg/dL Creatinine (0.7-1.3) mg/dL Est Cr Clr Drug Dosing mL/min Estimated GFR (MDRD) (>60) mL/min BUN/Creatinine Ratio (14-18) Glucose (74-106) mg/dL POC Glucose 179 H (70-105) mg/dL Lactic Acid 3.6 H (0.4-2.0) mmol/L Calcium (8.5-10.1) mg/dL Magnesium (1.8-2.4) mg/dl Ammonia (11-32) umol/L C-Reactive Protein (<1.0) mg/dL Urine Color (Yellow) Urine Appearance (Clear) Urine pH (5.0-8.0) Ur Specific O'Brien (1.005-1.030) Urine Protein (Negative) Urine Glucose (UA) (Negative) Urine Ketones (Negative) Urine Occult Blood (Negative) Urine Nitrite (Negative) Urine Bilirubin (Negative) Urine Urobilinogen (0.2-1.0) Ur Leukocyte Esterase (Negative) Urine RBC (0-5) /hpf Urine WBC (0-5) /hpf Ur Epithelial Cells (0-5) /hpf Urine Bacteria (FEW) /hpf CSF Tube Number CSF Volume ml CSF Appearance (CLEAR) CSF Color CSF Supernatant Appear CSF WBC (0-8) /uL CSF RBC (0-8) /mm3 CSF Seg Neutrophils CSF Lymphocytes CSF Glucose (40-70) mg/dl CSF Total Protein (15-45) mg/dl 06/29/19 Range/Units 17:03 WBC (4.23-9.07) K/mm3 RBC (4.63-6.08) M/mm3 Hgb (13.7-17.5) gm/dl Hct (40.1-51.0) % MCV (79.0-92.2) fl MCH (25.7-32.2) pg MCHC (32.2-35.5) g/dl RDW Std Deviation (35.1-43.9) fL Plt Count (163-337) K/mm3 MPV (9.4-12.3) fl Neut % (Auto) (34.0-67.9) % Lymph % (Auto) (21.8-53.1) % Woodward % (Auto) (5.3-12.2) % Eos % (Auto) (0.8-7.0) Baso % (Auto) (0.1-1.2) % Neut # (Auto) (1.78-5.38) K/mm3 Lymph # (Auto) (1.32-3.57) K/mm3 Woodward # (Auto) (0.30-0.82) K/mm3 Eos # (Auto) (0.04-0.54) K/mm3 Baso # (Auto) (0.01-0.08) K/mm3 Manual Slide Review ESR (0-15) mm/hr D-Dimer, Quantitative (0.19-0.50) mg/L Sodium (136-145) mEq/L Potassium (3.5-5.1) mEq/L Chloride (98-107) mEq/L Carbon Dioxide (21-32) mEq/L Anion Gap (5-15) BUN (7-18) mg/dL Creatinine (0.7-1.3) mg/dL Est Cr Clr Drug Dosing mL/min Estimated GFR (MDRD) (>60) mL/min BUN/Creatinine Ratio (14-18) Glucose (74-106) mg/dL POC Glucose 140 H (70-105) mg/dL Lactic Acid (0.4-2.0) mmol/L Calcium (8.5-10.1) mg/dL Magnesium (1.8-2.4) mg/dl Ammonia (11-32) umol/L C-Reactive Protein (<1.0) mg/dL Urine Color (Yellow) Urine Appearance (Clear) Urine pH (5.0-8.0) Ur Specific O'Brien (1.005-1.030) Urine Protein (Negative) Urine Glucose (UA) (Negative) Urine Ketones (Negative) Urine Occult Blood (Negative) Urine Nitrite (Negative) Urine Bilirubin (Negative) Urine Urobilinogen (0.2-1.0) Ur Leukocyte Esterase (Negative) Urine RBC (0-5) /hpf Urine WBC (0-5) /hpf Ur Epithelial Cells (0-5) /hpf Urine Bacteria (FEW) /hpf CSF Tube Number CSF Volume ml CSF Appearance (CLEAR) CSF Color CSF Supernatant Appear CSF WBC (0-8) /uL CSF RBC (0-8) /mm3 CSF Seg Neutrophils CSF Lymphocytes CSF Glucose (40-70) mg/dl CSF Total Protein (15-45) mg/dl Result Diagrams: 06/29/19 05:25 06/29/19 05:25 Jerman Results Last 24 hrs: Microbiology 06/28/19 22:00 Gram Stain - Final Cerebral Spinal Fluid CSF Culture - Preliminary NO GROWTH AFTER 1 DAY Orders Last 24hrs: Active Orders 24 hr Category Date Time Status Patient Status [ADT] Routine ADT 06/29/19 09:15 Active Antiembolic Devices [RC] BID Care 06/28/19 18:13 Active Blood Glucose Check, Bedside [RC] Q6HR Care 06/28/19 21:28 Active Height and Weight [RC] 04 Care 06/28/19 18:10 Active Intake and Output [RC] 04,16 Care 06/28/19 18:11 Active Notify Provider Consults [RC] ASDIRECTED Care 06/28/19 18:18 Active Notify Provider [RC] PRN Care 06/28/19 18:55 Active Oxygen Therapy [RC] PRN Care 06/28/19 18:10 Active RT Aerosol Therapy [RC] ASDIRECTED Care 06/28/19 18:13 Active Up With Assistance [RC] BID Care 06/28/19 18:10 Active Up ad Nany [RC] BID Care 06/28/19 18:10 Active VTE/DVT Education [RC] DAILY Care 06/28/19 18:10 Active Vital Signs [RC] Q4HR Care 06/28/19 18:10 Active Consult to Case Management/Tobacco Buyer [CONS] Cons 06/28/19 18:10 Active Routine Consult to Physician [CONS] Routine Cons 06/28/19 18:10 Active Consult to Spiritual Care [CONS] Routine Cons 06/28/19 18:10 Active OT Evaluation and Treatment [CONS] Routine Cons 06/28/19 18:10 Active PT Evaluation and Treatment [CONS] Routine Cons 06/28/19 18:10 Active Regular Diet [DIET] Diet 06/28/19 Dinner Active BASIC METABOLIC PANEL,BMP [CHEM] AM Lab 06/30/19 05:11 Ordered BASIC METABOLIC PANEL,BMP [CHEM] AM Lab 07/01/19 05:11 Ordered BASIC METABOLIC PANEL,BMP [CHEM] AM Lab 07/02/19 05:11 Ordered BASIC METABOLIC PANEL,BMP [CHEM] AM Lab 07/03/19 05:11 Ordered CBC WITH AUTO DIFF [HEME] AM Lab 06/30/19 05:11 Ordered CBC WITH AUTO DIFF [HEME] AM Lab 07/01/19 05:11 Ordered CBC WITH AUTO DIFF [HEME] AM Lab 07/02/19 05:11 Ordered CBC WITH AUTO DIFF [HEME] AM Lab 07/03/19 05:11 Ordered CULTURE BLOOD [BC] Stat Lab 06/29/19 11:45 Received CULTURE BLOOD [BC] Stat Lab 06/29/19 11:58 Received CULTURE CSF + SMEAR Lab 06/28/19 22:00 Active [id number] [REF] Stat Lab 06/28/19 17:50 Received LACTATE SEPSIS W/ REFLEX [CHEM] Routine Lab 06/29/19 17:50 Ordered MAGNESIUM [CHEM] AM Lab 06/30/19 05:11 Ordered MAGNESIUM [CHEM] AM Lab 07/01/19 05:11 Ordered MAGNESIUM [CHEM] AM Lab 07/02/19 05:11 Ordered MAGNESIUM [CHEM] AM Lab 07/03/19 05:11 Ordered ME PANEL Routine Lab 06/28/19 22:00 Active RESPIRATORY PANEL Routine Lab 06/28/19 22:15 Received STREP PNEUMONIAE ANTIGEN [MREF] Routine Lab 06/28/19 22:00 Active UA W/MICROSCOPIC [URIN] AM Lab 06/29/19 03:40 Results VANCOMYCIN TROUGH [CHEM] Timed Lab 06/29/19 21:00 Ordered VDRL, CSF Stat Lab 06/28/19 22:00 Received Acetaminophen [Tylenol] Med 06/28/19 18:10 Active 650 mg PO Q4H PRN Acetaminophen/HYDROcodone [[place] 325-5 MG] Med 06/28/19 18:10 Active 1 tab PO Q4H PRN Acyclovir [Zovirax] 730 mg Med 06/29/19 14:00 Active Sodium Chloride 0.9% [Normal Saline] 100 ml IV Q8H Albuterol/Ipratropium [DuoNeb 3.0-0.5 MG/3 ML] Med 06/28/19 18:10 Active 3 ml NEB Q4H PRN Bisacodyl [Dulcolax] Med 06/28/19 18:10 Active 5 mg PO DAILY PRN Dextrose 50% in Water Med 06/28/19 21:28 Active 50 ml IVPUSH ASDIRECTED PRN Docusate Sodium [Colace] Med 06/28/19 18:10 Active 100 mg PO BID PRN Docusate Sodium/Sennosides [Senna Plus] Med 06/28/19 18:10 Active 1 tab PO BID PRN Folic Acid Med 06/29/19 09:00 Active 1 mg PO DAILY HYDROmorphone [Dilaudid] Med 06/28/19 18:10 Active 0.25 mg IVPUSH Q2H PRN Haloperidol Lactate [Haldol] Med 06/28/19 18:55 Active 2 mg IM Q4H PRN Insulin Lispro [HumaLOG] Med 06/29/19 12:00 Active See Protocol SUBCUT Q6HR LORazepam [Ativan] Med 06/28/19 18:10 Active 1 mg IV Q6H PRN LORazepam [Ativan] Med 06/29/19 12:48 Active 2 mg IVPUSH Q4H PRN LORazepam [Ativan] Med 06/28/19 19:02 Active See Protocol IVPUSH Q4H PRN Lactated Ringers [Ringers, Lactated] 1,000 ml Med 06/29/19 13:00 Active IV ASDIRECTED Nicotine [Habitrol] Med 06/29/19 12:00 Active 14 mg TRDERM Q24H Ondansetron [Zofran] Med 06/28/19 18:10 Active 4 mg IV Q6H PRN Pantoprazole [ProTONIX] Med 06/29/19 21:00 Active 40 mg PO BID Pharmacy to Dose - Vancomycin Med 06/28/19 19:30 Active 1 dose .XX ASDIRECTED PRN Polyethylene Glycol 3350 [MiraLAX] Med 06/28/19 18:10 Active 17 gm PO DAILY PRN Promethazine [Phenergan] 6.25 mg Med 06/28/19 18:10 Active Sodium Chloride 0.9% [Normal Saline] 50 ml IV Q6H Remove Patch Med 06/30/19 12:00 Active 1 ea TRDERM Q24H Sodium Chloride 0.9% [Saline Flush] Med 06/29/19 09:15 Active 10 ml FLUSH ONETIME PRN Thiamine [Vitamin B-1] Med 06/30/19 09:00 Active 100 mg PO DAILY Vancomycin 1.5 gm Med 06/29/19 06:00 Active Sodium Chloride 0.9% [Normal Saline] 500 ml IV Q8H cefTRIAXone [Rocephin] 2 gm Med 06/29/19 11:30 Active Sodium Chloride 0.9% [Normal Saline] 100 ml IV Q12H chlordiazePOXIDE [Librium] Med 06/28/19 18:55 Active 25 mg PO Q8H PRN cloNIDine [Catapres] Med 06/28/19 18:55 Active 0.1 mg PO Q4H PRN dexAMETHasone [Dexamethasone] Med 06/29/19 08:00 Active 20 mg IVPUSH Q6H Blood Culture x2 Reflex Set [OM.PC] Stat Oth 06/29/19 11:03 Ordered Isolation [COMM] Routine Oth 06/28/19 20:03 Ordered Seizure Precautions [OM.PC] Routine Oth 06/28/19 18:55 Ordered Sequential Compression Device [OM.PC] Per Unit Routine Oth 06/28/19 18:11 Ordered Resuscitation Status Routine Resus Stat 06/28/19 18:10 Ordered Medication Orders Acetaminophen (Tylenol) 650 mg PO Q4H PRN PRN Reason: Pain (Mild 1-3)/fever Hydrocodone Bitart/Acetaminophen ([place] 325-5 Mg) 1 tab PO Q4H PRN PRN Reason: Pain (moderate 4-6) Albuterol/Ipratropium (Duoneb 3.0-0.5 Mg/3 Ml) 3 ml NEB Q4H PRN PRN Reason: Shortness Of Breath/wheezing Bisacodyl (Dulcolax) 5 mg PO DAILY PRN PRN Reason: Constipation Chlordiazepoxide HCl (Librium) 25 mg PO Q8H PRN PRN Reason: Withdrawal Symptoms Clonidine HCl (Catapres) 0.1 mg PO Q4H PRN PRN Reason: Agitation Last Admin: 06/29/19 12:16 Dose: 0.1 mg Dexamethasone (Dexamethasone) 20 mg IVPUSH Q6H [place] Last Admin: 06/29/19 14:33 Dose: 20 mg Admin: 06/29/19 08:07 Dose: 20 mg Dextrose/Water (Dextrose 50% In Water) 50 ml IVPUSH ASDIRECTED PRN PRN Reason: Hypoglycemia Docusate Sodium (Colace) 100 mg PO BID PRN PRN Reason: Constipation Folic Acid (Folic Acid) 1 mg PO DAILY [facility] Stop: 07/01/19 09:01 Last Admin: 06/29/19 08:22 Dose: 1 mg Haloperidol Lactate (Haldol) 2 mg IM Q4H PRN PRN Reason: Agitation Hydromorphone HCl (Dilaudid) 0.25 mg IVPUSH Q2H PRN PRN Reason: Pain (severe 7-10) Promethazine HCl 6.25 mg/ (Sodium Chloride) 50.25 mls @ 100 mls/hr IV Q6H PRN PRN Reason: Nausea/Vomiting Vancomycin HCl 1.5 gm/ Sodium (Chloride) 500 mls @ 333.333 mls/hr IV Q8H [facility] Last Admin: 06/29/19 14:41 Dose: 333.333 mls/hr Infusion: 06/29/19 07:09 Dose: 333.333 mls/hr Admin: 06/29/19 05:38 Dose: 333.333 mls/hr Ceftriaxone Sodium 2 gm/ (Sodium Chloride) 100 mls @ 200 mls/hr IV Q12H [facility] Last Admin: 06/29/19 12:08 Dose: 200 mls/hr Acyclovir 730 mg/ Sodium (Chloride) 114.6 mls @ 95.5 mls/hr IV Q8H [facility] Last Admin: 06/29/19 14:49 Dose: 95.5 mls/hr Lactated Ringer's (Ringers, Lactated) 1,000 mls @ 150 mls/hr IV ASDIRECTED [facility] Last Admin: 06/29/19 16:40 Dose: 150 mls/hr Insulin Human Lispro (Humalog) 0 unit SUBCUT Q6HR [facility]; Protocol Last Admin: 06/29/19 17:03 Dose: Not Given Admin: 06/29/19 12:18 Dose: 2 units Lorazepam (Ativan) 1 mg IV Q6H PRN PRN Reason: Anxiety Last Admin: 06/29/19 09:14 Dose: 1 mg Admin: 06/29/19 01:56 Dose: 1 mg Lorazepam (Ativan) 0 mg IVPUSH Q4H PRN; Protocol PRN Reason: Withdrawal Symptoms Lorazepam (Ativan) 2 mg IVPUSH Q4H PRN PRN Reason: Seizures Miscellaneous Information (Remove Patch) 1 ea TRDERM Q24H [facility] Nicotine (Habitrol) 14 mg TRDERM Q24H [facility] Last Admin: 06/29/19 12:17 Dose: 14 mg Ondansetron HCl (Zofran) 4 mg IV Q6H PRN PRN Reason: Nausea/Vomiting Pantoprazole Sodium (Protonix) 40 mg PO BID [facility] Polyethylene Glycol (Miralax) 17 gm PO DAILY PRN PRN Reason: Constipation Senna/Docusate Sodium (Senna Plus) 1 tab PO BID PRN PRN Reason: Constipation Sodium Chloride (Saline Flush) 10 ml FLUSH ASDIRECTED PRN PRN Reason: Keep Vein Open Last Admin: 06/28/19 13:25 Dose: 10 ml Sodium Chloride (Saline Flush) 10 ml FLUSH ONETIME PRN PRN Reason: Keep Vein Open Stop: 06/29/19 18:00 Last Admin: 06/29/19 09:59 Dose: 10 ml Thiamine HCl (Vitamin B-1) 100 mg PO DAILY [facility] Vancomycin HCl (Pharmacy To Dose - Vancomycin) 1 dose .XX ASDIRECTED PRN PRN Reason: RX TO DOSE VANCOMYCIN Assessment/Plan Comment:: The patient was seen and examined at bedside in concert with the medical student. The admission assessment and plans were discussed and agreed upon with me. Patient is doing way much better since last night. He is more alert, awake and conversive. He is able to maintain a good conversation. We will continue current treatment as we wait for additional tests to come back. His family was updated about his diagnoses and treatment plan. Tele-psych consult ordered. Additional Diagnoses: Polypharmacy and Possible Intention Drug Overdose due to undergoing marital stress. His filed a restraining order on him and looks like plans to split away from him.
--- NOTE | 2019-06-29 11:14 | MR ---
MR angiogram of neck Technique: Postcontrast MR angiogram study of the neck was performed. Multiple MIPS images were obtained. Comparison: No prior neck imaging is available. Findings: Common carotid arteries on both sides appear normal. Carotid bifurcation on both sides appears normal. Proximal external carotid arteries are unremarkable. Internal carotid arteries appear unremarkable. No dissection or stenosis is seen. Both vertebral arteries are patent. Right vertebral artery is dominant over a smaller left vertebral artery. Impression: 1. No abnormality is identified on MR angiogram study of the neck. Diagnostic code #1
--- NOTE | 2019-06-29 11:14 | MR ---
MR angiogram of brain Technique: [id number] MR angiogram sequences were obtained with multiple MIP images. Study shows significant motion artifact which diminishes details of the exam. Findings: Flow is noted within the basilar artery and distal internal carotid arteries. Flow is noted within the posterior cerebral arteries. Flow also noted within the proximal middle cerebral arteries but more distal middle cerebral arteries are poorly seen due to motion. Proximal anterior cerebral arteries are also patent. No gross findings of stenosis or occlusion is seen. Impression: 1. Suboptimal study as noted above due to motion. Interpretation primarily based off source images. No gross finding of stenosis or occlusion. Diagnostic code #2
--- NOTE | 2019-06-29 11:14 | MR ---
MRI brain Technique: T1 sagittal; T2, T2 FLAIR, T1 and diffusion axial; T1-weighted coronal images were obtained. Comparison: Prior head CT study of 06/28/19. Findings: Normal signal void is seen within the major cerebral arteries within the skull base. Ventricles along with basal cisterns and sulci over the convexities are within normal limits. No abnormal parenchymal densities are seen. No evidence of intracranial hemorrhage. No midline shift or mass effect is seen. No acute diffusion abnormalities are seen. Impression: 1. No abnormality is identified on MRI study of the brain. Diagnostic code #1
[2019-06-29] MEDS: cefTRIAXone 2 GM in Sodium Chloride 0.9% 100 ML IV SCH ×2 (12:08→22:31)
[2019-06-29] MEDS: Nicotine 14 MG/24 Hr Patch TRDERM SCH (12:17)
[2019-06-29] MEDS ORDERED: Lactated Ringers 500 ML IV ONE (12:47)
[2019-06-29] MEDS ORDERED: LORazepam 2 MG/ML SDV IVPUSH PRN (12:48)
[2019-06-29] MEDS ORDERED: Lactated Ringers 1,000 ML ONE (12:50)
[2019-06-29] MEDS: SODIUM CHLORIDE 0.9% IV SCH ×2 (14:49→22:20)
[2019-06-29] MEDS: ACYCLOVIR IV SCH ×2 (14:49→22:20)
[2019-06-29] MEDS: Lactated Ringers 1,000 ML IV SCH ×2 (16:40→23:12)
[2019-06-29] MEDS: Pantoprazole 40 MG Tab.CR PO SCH (20:25)
[2019-06-29] MEDS ORDERED: Vancomycin 2 GM in Sodium Chloride 0.9% 500 ML IV SCH (21:45)
[2019-06-29] MEDS: Aspirin 81 MG Tab.Chew PO SCH (22:19)
[2019-06-29] MEDS: Simvastatin 20 MG Tab PO SCH (22:19)
[2019-06-29] MEDS: Vancomycin 2 GM in Sodium Chloride 0.9% 500 ML IV SCH (22:20)
[2019-06-29] MEDS ORDERED: Lactated Ringers 1,000 ML IV ONE (23:28)
[2019-06-30] MEDS: Dexamethasone 10 MG/ML SDV IVPUSH SCH ×3 (02:46→13:32)
[2019-06-30] MEDS: Lactated Ringers 1,000 ML IV SCH ×4 (03:04→21:54)
[2019-06-30] MEDS: Vancomycin 2 GM in Sodium Chloride 0.9% 500 ML IV SCH ×3 (05:52→21:18)
[2019-06-30] MEDS: SODIUM CHLORIDE 0.9% IV SCH ×3 (05:52→21:18)
[2019-06-30] MEDS: ACYCLOVIR IV SCH ×3 (05:52→21:18)
[2019-06-30] MEDS: Insulin Lispro 100 Units/ML 3 ML Vial SUBCUT SCH ×4 (06:11→23:50)
[2019-06-30] MEDS ORDERED: Magnesium Sulfate/Water 2 GM in Premix Bag 1 BAG IV ONE (09:00)
--- NOTE | 2019-06-30 09:12 | PCM.PN ---
<Royal Payne - Last Filed: 06/30/19 09:16> - General Info Date of Service: 06/30/19 Admission Dx/Problem (Free Text): Admission Diagnosis/Problem Admission Diagnosis/Problem Hypotension Subjective Update: Pt is feeling well today. States his memory of the previous two days is incomplete, and that he only remembers parts of yesterday's events. He is wondering how long he will be staying, and what diagnosis has been reached so far. I explained that the etiology of his symptoms remains unclear at this time , and that we are still waiting on the results of a few tests. He states he slept well, and has been able to tolerate activity. He has no complaints at this time, other than that he would like to increase his activity a bit, as he is getting tired of being in bed all day. Pt states again that he was under a significant amount of stress in the weeks preceding this event. Pt continues to deny taking any illicit substances or other prescription medications that could have caused his symptoms. Pt is having regular visits from his family as well as his ex-. His ex- has apparently filed a restraining order against him, but has still been seeing him regularly in the hospital. She claims she had the order lifted, but the pt states he contacted the courthouse and they told him it was still in place. Functional Status: Reports: Pain Controlled - Review of Systems General: Reports: No Symptoms HEENT: Reports: No Symptoms Pulmonary: Reports: No Symptoms Cardiovascular: Reports: No Symptoms Gastrointestinal: Reports: No Symptoms Genitourinary: Reports: No Symptoms Musculoskeletal: Reports: No Symptoms Skin: Reports: No Symptoms Neurological: Reports: No Symptoms Psychiatric: Reports: No Symptoms - Patient Data Vitals - Most Recent: Last Vital Signs Temp 98.4 F 06/30/19 07:50 Pulse 107 H 06/30/19 07:50 Resp 26 H 06/30/19 07:50 BP 153/87 H 06/30/19 07:50 Pulse Ox 95 06/30/19 07:50 Weight - Most Recent: 304 lb 14.4 oz I&O - Last 24 Hours: Intake & Output 06/29/19 06/30/19 06/30/19 22:59 06:59 14:59 Intake Total 4822 4400 Output Total 2775 2800 Balance 2047 1600 Lab Results Last 24 Hours: Laboratory Results - last 24 hr 06/28/19 06/28/19 06/29/19 Range/Units 22:00 22:15 03:40 WBC (4.23-9.07) K/mm3 RBC (4.63-6.08) M/mm3 Hgb (13.7-17.5) gm/dl Hct (40.1-51.0) % MCV (79.0-92.2) fl MCH (25.7-32.2) pg MCHC (32.2-35.5) g/dl RDW Std Deviation (35.1-43.9) fL Plt Count (163-337) K/mm3 MPV (9.4-12.3) fl Neut % (Auto) (34.0-67.9) % Lymph % (Auto) (21.8-53.1) % [place] % (Auto) (5.3-12.2) % Eos % (Auto) (0.8-7.0) Baso % (Auto) (0.1-1.2) % Neut # (Auto) (1.78-5.38) K/mm3 Lymph # (Auto) (1.32-3.57) K/mm3 [place] # (Auto) (0.30-0.82) K/mm3 Eos # (Auto) (0.04-0.54) K/mm3 Baso # (Auto) (0.01-0.08) K/mm3 Manual Slide Review D-Dimer, Quantitative (0.19-0.50) mg/L Sodium (136-145) mEq/L Potassium (3.5-5.1) mEq/L Chloride (98-107) mEq/L Carbon Dioxide (21-32) mEq/L Anion Gap (5-15) BUN (7-18) mg/dL Creatinine (0.7-1.3) mg/dL Est Cr Clr Drug Dosing mL/min Estimated GFR (MDRD) (>60) mL/min BUN/Creatinine Ratio (14-18) Glucose (74-106) mg/dL POC Glucose (70-105) mg/dL Lactic Acid (0.4-2.0) mmol/L Calcium (8.5-10.1) mg/dL Magnesium (1.8-2.4) mg/dl Triglycerides (<150) mg/dL Cholesterol (<200) mg/dL LDL Cholesterol Direct (<100) mg/dL HDL Cholesterol (40-59) mg/dL Urine Mucus Not seen (FEW) /hpf Ur Random Creatinine (30.0-125.0) mg/dL Ur Random Microalbumin (1.3-20.0) mg/L Microalb/Creat Ratio (0-30) mg/g CSF C.neoform/gat PCR Not detected (Not Detected) Vancomycin Trough (10.0-20.0) Adenovirus (PCR) Not detected (Not Detected) B. pertussis DNA (PCR) Not detected (Not Detected) B.parapertussis DNA PCR Not detected (Not Detected) C. pneumoniae DNA (PCR) Not detected (Not Detected) Coronavirus (PCR) Not detected (Not Detected) CMV Detection Not detected (Not Detected) Enterovirus DNA (PCR) Not detected (Not Detected) E. coli (PCR) Not detected (Not Detected) H. influenzae DNA Not detected (Not Detected) HSV I DNA PCR Not detected (Not Detected) HSV II DNA PCR Not detected (Not Detected) Herpesvirus 6 Not detected (Not Detected) Human Metapneumovir PCR Not detected (Not Detected) Influenza A (RT-PCR) Not detected (Not Detected) Influenza B (RT-PCR) Not detected (Not Detected) List. monocytogenes PCR Not detected (Not Detected) M. pneumoniae (PCR) Not detected (Not Detected) N. meningitidis (PCR) Not detected (Not Detected) Parainfluen 1,2,3,4 PCR Not detected (Not Detected) Parechovirus (PCR) Not detected (Not Detected) RSV (PCR) Not detected (Not Detected) Entero/Rhino (PCR) Not detected (Not Detected) Strep agalactiae (PCR) Not detected (Not Detected) Strep pneumoniae (PCR) Not detected (Not Detected) VZV DNA (PCR) Not detected (Not Detected) 06/29/19 06/29/19 06/29/19 Range/Units 03:40 11:29 11:50 WBC (4.23-9.07) K/mm3 RBC (4.63-6.08) M/mm3 Hgb (13.7-17.5) gm/dl Hct (40.1-51.0) % MCV (79.0-92.2) fl MCH (25.7-32.2) pg MCHC (32.2-35.5) g/dl RDW Std Deviation (35.1-43.9) fL Plt Count (163-337) K/mm3 MPV (9.4-12.3) fl Neut % (Auto) (34.0-67.9) % Lymph % (Auto) (21.8-53.1) % [place] % (Auto) (5.3-12.2) % Eos % (Auto) (0.8-7.0) Baso % (Auto) (0.1-1.2) % Neut # (Auto) (1.78-5.38) K/mm3 Lymph # (Auto) (1.32-3.57) K/mm3 [place] # (Auto) (0.30-0.82) K/mm3 Eos # (Auto) (0.04-0.54) K/mm3 Baso # (Auto) (0.01-0.08) K/mm3 Manual Slide Review D-Dimer, Quantitative (0.19-0.50) mg/L Sodium (136-145) mEq/L Potassium (3.5-5.1) mEq/L Chloride (98-107) mEq/L Carbon Dioxide (21-32) mEq/L Anion Gap (5-15) BUN (7-18) mg/dL Creatinine (0.7-1.3) mg/dL Est Cr Clr Drug Dosing mL/min Estimated GFR (MDRD) (>60) mL/min BUN/Creatinine Ratio (14-18) Glucose (74-106) mg/dL POC Glucose 179 H (70-105) mg/dL Lactic Acid 3.6 H (0.4-2.0) mmol/L Calcium (8.5-10.1) mg/dL Magnesium (1.8-2.4) mg/dl Triglycerides (<150) mg/dL Cholesterol (<200) mg/dL LDL Cholesterol Direct (<100) mg/dL HDL Cholesterol (40-59) mg/dL Urine Mucus (FEW) /hpf Ur Random Creatinine 128.1 H (30.0-125.0) mg/dL Ur Random Microalbumin 3.3 (1.3-20.0) mg/L Microalb/Creat Ratio 2.5 (0-30) mg/g CSF C.neoform/gat PCR (Not Detected) Vancomycin Trough (10.0-20.0) Adenovirus (PCR) (Not Detected) B. pertussis DNA (PCR) (Not Detected) B.parapertussis DNA PCR (Not Detected) C. pneumoniae DNA (PCR) (Not Detected) Coronavirus (PCR) (Not Detected) CMV Detection (Not Detected) Enterovirus DNA (PCR) (Not Detected) E. coli (PCR) (Not Detected) H. influenzae DNA (Not Detected) HSV I DNA PCR (Not Detected) HSV II DNA PCR (Not Detected) Herpesvirus 6 (Not Detected) Human Metapneumovir PCR (Not Detected) Influenza A (RT-PCR) (Not Detected) Influenza B (RT-PCR) (Not Detected) List. monocytogenes PCR (Not Detected) M. pneumoniae (PCR) (Not Detected) N. meningitidis (PCR) (Not Detected) Parainfluen 1,2,3,4 PCR (Not Detected) Parechovirus (PCR) (Not Detected) RSV (PCR) (Not Detected) Entero/Rhino (PCR) (Not Detected) Strep agalactiae (PCR) (Not Detected) Strep pneumoniae (PCR) (Not Detected) VZV DNA (PCR) (Not Detected) 06/29/19 06/29/19 06/29/19 Range/Units 11:58 17:03 17:56 WBC (4.23-9.07) K/mm3 RBC (4.63-6.08) M/mm3 Hgb (13.7-17.5) gm/dl Hct (40.1-51.0) % MCV (79.0-92.2) fl MCH (25.7-32.2) pg MCHC (32.2-35.5) g/dl RDW Std Deviation (35.1-43.9) fL Plt Count (163-337) K/mm3 MPV (9.4-12.3) fl Neut % (Auto) (34.0-67.9) % Lymph % (Auto) (21.8-53.1) % [place] % (Auto) (5.3-12.2) % Eos % (Auto) (0.8-7.0) Baso % (Auto) (0.1-1.2) % Neut # (Auto) (1.78-5.38) K/mm3 Lymph # (Auto) (1.32-3.57) K/mm3 [place] # (Auto) (0.30-0.82) K/mm3 Eos # (Auto) (0.04-0.54) K/mm3 Baso # (Auto) (0.01-0.08) K/mm3 Manual Slide Review D-Dimer, Quantitative 0.36 (0.19-0.50) mg/L Sodium (136-145) mEq/L Potassium (3.5-5.1) mEq/L Chloride (98-107) mEq/L Carbon Dioxide (21-32) mEq/L Anion Gap (5-15) BUN (7-18) mg/dL Creatinine (0.7-1.3) mg/dL Est Cr Clr Drug Dosing mL/min Estimated GFR (MDRD) (>60) mL/min BUN/Creatinine Ratio (14-18) Glucose (74-106) mg/dL POC Glucose 140 H (70-105) mg/dL Lactic Acid 3.4 H (0.4-2.0) mmol/L Calcium (8.5-10.1) mg/dL Magnesium (1.8-2.4) mg/dl Triglycerides (<150) mg/dL Cholesterol (<200) mg/dL LDL Cholesterol Direct (<100) mg/dL HDL Cholesterol (40-59) mg/dL Urine Mucus (FEW) /hpf Ur Random Creatinine (30.0-125.0) mg/dL Ur Random Microalbumin (1.3-20.0) mg/L Microalb/Creat Ratio (0-30) mg/g CSF C.neoform/gat PCR (Not Detected) Vancomycin Trough (10.0-20.0) Adenovirus (PCR) (Not Detected) B. pertussis DNA (PCR) (Not Detected) B.parapertussis DNA PCR (Not Detected) C. pneumoniae DNA (PCR) (Not Detected) Coronavirus (PCR) (Not Detected) CMV Detection (Not Detected) Enterovirus DNA (PCR) (Not Detected) E. coli (PCR) (Not Detected) H. influenzae DNA (Not Detected) HSV I DNA PCR (Not Detected) HSV II DNA PCR (Not Detected) Herpesvirus 6 (Not Detected) Human Metapneumovir PCR (Not Detected) Influenza A (RT-PCR) (Not Detected) Influenza B (RT-PCR) (Not Detected) List. monocytogenes PCR (Not Detected) M. pneumoniae (PCR) (Not Detected) N. meningitidis (PCR) (Not Detected) Parainfluen 1,2,3,4 PCR (Not Detected) Parechovirus (PCR) (Not Detected) RSV (PCR) (Not Detected) Entero/Rhino (PCR) (Not Detected) Strep agalactiae (PCR) (Not Detected) Strep pneumoniae (PCR) (Not Detected) VZV DNA (PCR) (Not Detected) 06/29/19 06/29/19 06/29/19 Range/Units 21:09 21:09 23:01 WBC (4.23-9.07) K/mm3 RBC (4.63-6.08) M/mm3 Hgb (13.7-17.5) gm/dl Hct (40.1-51.0) % MCV (79.0-92.2) fl MCH (25.7-32.2) pg MCHC (32.2-35.5) g/dl RDW Std Deviation (35.1-43.9) fL Plt Count (163-337) K/mm3 MPV (9.4-12.3) fl Neut % (Auto) (34.0-67.9) % Lymph % (Auto) (21.8-53.1) % [place] % (Auto) (5.3-12.2) % Eos % (Auto) (0.8-7.0) Baso % (Auto) (0.1-1.2) % Neut # (Auto) (1.78-5.38) K/mm3 Lymph # (Auto) (1.32-3.57) K/mm3 [place] # (Auto) (0.30-0.82) K/mm3 Eos # (Auto) (0.04-0.54) K/mm3 Baso # (Auto) (0.01-0.08) K/mm3 Manual Slide Review D-Dimer, Quantitative (0.19-0.50) mg/L Sodium (136-145) mEq/L Potassium (3.5-5.1) mEq/L Chloride (98-107) mEq/L Carbon Dioxide (21-32) mEq/L Anion Gap (5-15) BUN (7-18) mg/dL Creatinine (0.7-1.3) mg/dL Est Cr Clr Drug Dosing mL/min Estimated GFR (MDRD) (>60) mL/min BUN/Creatinine Ratio (14-18) Glucose (74-106) mg/dL POC Glucose 176 H (70-105) mg/dL Lactic Acid 5.9 H (0.4-2.0) mmol/L Calcium (8.5-10.1) mg/dL Magnesium (1.8-2.4) mg/dl Triglycerides (<150) mg/dL Cholesterol (<200) mg/dL LDL Cholesterol Direct (<100) mg/dL HDL Cholesterol (40-59) mg/dL Urine Mucus (FEW) /hpf Ur Random Creatinine (30.0-125.0) mg/dL Ur Random Microalbumin (1.3-20.0) mg/L Microalb/Creat Ratio (0-30) mg/g CSF C.neoform/gat PCR (Not Detected) Vancomycin Trough 8.6 L (10.0-20.0) Adenovirus (PCR) (Not Detected) B. pertussis DNA (PCR) (Not Detected) B.parapertussis DNA PCR (Not Detected) C. pneumoniae DNA (PCR) (Not Detected) Coronavirus (PCR) (Not Detected) CMV Detection (Not Detected) Enterovirus DNA (PCR) (Not Detected) E. coli (PCR) (Not Detected) H. influenzae DNA (Not Detected) HSV I DNA PCR (Not Detected) HSV II DNA PCR (Not Detected) Herpesvirus 6 (Not Detected) Human Metapneumovir PCR (Not Detected) Influenza A (RT-PCR) (Not Detected) Influenza B (RT-PCR) (Not Detected) List. monocytogenes PCR (Not Detected) M. pneumoniae (PCR) (Not Detected) N. meningitidis (PCR) (Not Detected) Parainfluen 1,2,3,4 PCR (Not Detected) Parechovirus (PCR) (Not Detected) RSV (PCR) (Not Detected) Entero/Rhino (PCR) (Not Detected) Strep agalactiae (PCR) (Not Detected) Strep pneumoniae (PCR) (Not Detected) VZV DNA (PCR) (Not Detected) 06/30/19 06/30/19 06/30/19 Range/Units 01:05 05:35 05:35 WBC 12.65 H (4.23-9.07) K/mm3 RBC 4.82 (4.63-6.08) M/mm3 Hgb 15.1 (13.7-17.5) gm/dl Hct 45.7 (40.1-51.0) % MCV 94.8 H (79.0-92.2) fl MCH 31.3 (25.7-32.2) pg MCHC 33.0 (32.2-35.5) g/dl RDW Std Deviation 46.6 H (35.1-43.9) fL Plt Count 197 (163-337) K/mm3 MPV 11.3 (9.4-12.3) fl Neut % (Auto) 91.5 H (34.0-67.9) % Lymph % (Auto) 4.7 L (21.8-53.1) % [place] % (Auto) 3.5 L (5.3-12.2) % Eos % (Auto) 0.1 L (0.8-7.0) Baso % (Auto) 0.0 L (0.1-1.2) % Neut # (Auto) 11.58 H (1.78-5.38) K/mm3 Lymph # (Auto) 0.59 L (1.32-3.57) K/mm3 [place] # (Auto) 0.44 (0.30-0.82) K/mm3 Eos # (Auto) 0.01 L (0.04-0.54) K/mm3 Baso # (Auto) 0.00 L (0.01-0.08) K/mm3 Manual Slide Review Abnormal smear D-Dimer, Quantitative (0.19-0.50) mg/L Sodium 141 (136-145) mEq/L Potassium 4.0 (3.5-5.1) mEq/L Chloride 105 (98-107) mEq/L Carbon Dioxide 26 (21-32) mEq/L Anion Gap 14.0 (5-15) BUN 9 (7-18) mg/dL Creatinine 1.0 (0.7-1.3) mg/dL Est Cr Clr Drug Dosing 103.42 mL/min Estimated GFR (MDRD) > 60 (>60) mL/min BUN/Creatinine Ratio 9.0 L (14-18) Glucose 198 H (74-106) mg/dL POC Glucose (70-105) mg/dL Lactic Acid 2.8 H (0.4-2.0) mmol/L Calcium 9.4 (8.5-10.1) mg/dL Magnesium 1.7 L (1.8-2.4) mg/dl Triglycerides 64 (<150) mg/dL Cholesterol 121 (<200) mg/dL LDL Cholesterol Direct 55 (<100) mg/dL HDL Cholesterol 53.0 (40-59) mg/dL Urine Mucus (FEW) /hpf Ur Random Creatinine (30.0-125.0) mg/dL Ur Random Microalbumin (1.3-20.0) mg/L Microalb/Creat Ratio (0-30) mg/g CSF C.neoform/gat PCR (Not Detected) Vancomycin Trough (10.0-20.0) Adenovirus (PCR) (Not Detected) B. pertussis DNA (PCR) (Not Detected) B.parapertussis DNA PCR (Not Detected) C. pneumoniae DNA (PCR) (Not Detected) Coronavirus (PCR) (Not Detected) CMV Detection (Not Detected) Enterovirus DNA (PCR) (Not Detected) E. coli (PCR) (Not Detected) H. influenzae DNA (Not Detected) HSV I DNA PCR (Not Detected) HSV II DNA PCR (Not Detected) Herpesvirus 6 (Not Detected) Human Metapneumovir PCR (Not Detected) Influenza A (RT-PCR) (Not Detected) Influenza B (RT-PCR) (Not Detected) List. monocytogenes PCR (Not Detected) M. pneumoniae (PCR) (Not Detected) N. meningitidis (PCR) (Not Detected) Parainfluen 1,2,3,4 PCR (Not Detected) Parechovirus (PCR) (Not Detected) RSV (PCR) (Not Detected) Entero/Rhino (PCR) (Not Detected) Strep agalactiae (PCR) (Not Detected) Strep pneumoniae (PCR) (Not Detected) VZV DNA (PCR) (Not Detected) 06/30/19 Range/Units 06:03 WBC (4.23-9.07) K/mm3 RBC (4.63-6.08) M/mm3 Hgb (13.7-17.5) gm/dl Hct (40.1-51.0) % MCV (79.0-92.2) fl MCH (25.7-32.2) pg MCHC (32.2-35.5) g/dl RDW Std Deviation (35.1-43.9) fL Plt Count (163-337) K/mm3 MPV (9.4-12.3) fl Neut % (Auto) (34.0-67.9) % Lymph % (Auto) (21.8-53.1) % [place] % (Auto) (5.3-12.2) % Eos % (Auto) (0.8-7.0) Baso % (Auto) (0.1-1.2) % Neut # (Auto) (1.78-5.38) K/mm3 Lymph # (Auto) (1.32-3.57) K/mm3 [place] # (Auto) (0.30-0.82) K/mm3 Eos # (Auto) (0.04-0.54) K/mm3 Baso # (Auto) (0.01-0.08) K/mm3 Manual Slide Review D-Dimer, Quantitative (0.19-0.50) mg/L Sodium (136-145) mEq/L Potassium (3.5-5.1) mEq/L Chloride (98-107) mEq/L Carbon Dioxide (21-32) mEq/L Anion Gap (5-15) BUN (7-18) mg/dL Creatinine (0.7-1.3) mg/dL Est Cr Clr Drug Dosing mL/min Estimated GFR (MDRD) (>60) mL/min BUN/Creatinine Ratio (14-18) Glucose (74-106) mg/dL POC Glucose 173 H (70-105) mg/dL Lactic Acid (0.4-2.0) mmol/L Calcium (8.5-10.1) mg/dL Magnesium (1.8-2.4) mg/dl Triglycerides (<150) mg/dL Cholesterol (<200) mg/dL LDL Cholesterol Direct (<100) mg/dL HDL Cholesterol (40-59) mg/dL Urine Mucus (FEW) /hpf Ur Random Creatinine (30.0-125.0) mg/dL Ur Random Microalbumin (1.3-20.0) mg/L Microalb/Creat Ratio (0-30) mg/g CSF C.neoform/gat PCR (Not Detected) Vancomycin Trough (10.0-20.0) Adenovirus (PCR) (Not Detected) B. pertussis DNA (PCR) (Not Detected) B.parapertussis DNA PCR (Not Detected) C. pneumoniae DNA (PCR) (Not Detected) Coronavirus (PCR) (Not Detected) CMV Detection (Not Detected) Enterovirus DNA (PCR) (Not Detected) E. coli (PCR) (Not Detected) H. influenzae DNA (Not Detected) HSV I DNA PCR (Not Detected) HSV II DNA PCR (Not Detected) Herpesvirus 6 (Not Detected) Human Metapneumovir PCR (Not Detected) Influenza A (RT-PCR) (Not Detected) Influenza B (RT-PCR) (Not Detected) List. monocytogenes PCR (Not Detected) M. pneumoniae (PCR) (Not Detected) N. meningitidis (PCR) (Not Detected) Parainfluen 1,2,3,4 PCR (Not Detected) Parechovirus (PCR) (Not Detected) RSV (PCR) (Not Detected) Entero/Rhino (PCR) (Not Detected) Strep agalactiae (PCR) (Not Detected) Strep pneumoniae (PCR) (Not Detected) VZV DNA (PCR) (Not Detected) Jerman Results Last 24 Hours: Microbiology 06/28/19 22:00 Streptococcus pneumoniae Antigen (M - Final Cerebral Spinal Fluid 06/28/19 22:00 Gram Stain - Final Cerebral Spinal Fluid CSF Culture - Preliminary NO GROWTH AFTER 1 DAY Med Orders - Current: Current Medications Acetaminophen (Tylenol) 650 mg PO Q4H PRN PRN Reason: Pain (Mild 1-3)/fever Hydrocodone Bitart/Acetaminophen ([place] 325-5 Mg) 1 tab PO Q4H PRN PRN Reason: Pain (moderate 4-6) Albuterol/Ipratropium (Duoneb 3.0-0.5 Mg/3 Ml) 3 ml NEB Q4H PRN PRN Reason: Shortness Of Breath/wheezing Aspirin (Aspirin) 81 mg PO BEDTIME [facility] Last Admin: 06/29/19 22:19 Dose: 81 mg Bisacodyl (Dulcolax) 5 mg PO DAILY PRN PRN Reason: Constipation Chlordiazepoxide HCl (Librium) 25 mg PO Q8H PRN PRN Reason: Withdrawal Symptoms Clonidine HCl (Catapres) 0.1 mg PO Q4H PRN PRN Reason: Agitation Last Admin: 06/29/19 12:16 Dose: 0.1 mg Dexamethasone (Dexamethasone) 20 mg IVPUSH Q6H [facility] Last Admin: 06/30/19 02:46 Dose: 20 mg Dextrose/Water (Dextrose 50% In Water) 50 ml IVPUSH ASDIRECTED PRN PRN Reason: Hypoglycemia Docusate Sodium (Colace) 100 mg PO BID PRN PRN Reason: Constipation Folic Acid (Folic Acid) 1 mg PO DAILY [facility] Stop: 07/01/19 09:01 Last Admin: 06/29/19 08:22 Dose: 1 mg Haloperidol Lactate (Haldol) 2 mg IM Q4H PRN PRN Reason: Agitation Hydromorphone HCl (Dilaudid) 0.25 mg IVPUSH Q2H PRN PRN Reason: Pain (severe 7-10) Promethazine HCl 6.25 mg/ (Sodium Chloride) 50.25 mls @ 100 mls/hr IV Q6H PRN PRN Reason: Nausea/Vomiting Ceftriaxone Sodium 2 gm/ (Sodium Chloride) 100 mls @ 200 mls/hr IV Q12H [facility] Last Admin: 06/29/19 22:31 Dose: 200 mls/hr Acyclovir 730 mg/ Sodium (Chloride) 114.6 mls @ 95.5 mls/hr IV Q8H [facility] Last Admin: 06/30/19 05:52 Dose: 95.5 mls/hr Lactated Ringer's (Ringers, Lactated) 1,000 mls @ 250 mls/hr IV ASDIRECTED [facility] Last Admin: 06/30/19 03:04 Dose: 250 mls/hr Vancomycin HCl 2 gm/ Sodium (Chloride) 500 mls @ 333.333 mls/hr IV Q8H [facility] Last Admin: 06/30/19 05:52 Dose: 333.333 mls/hr Magnesium Sulfate 2 gm/ Premix 50 mls @ 25 mls/hr IV ONETIME ONE Stop: 06/30/19 10:59 Insulin Human Lispro (Humalog) 0 unit SUBCUT Q6HR [facility]; Protocol Last Admin: 06/30/19 06:11 Dose: 2 units Lorazepam (Ativan) 1 mg IV Q6H PRN PRN Reason: Anxiety Last Admin: 06/29/19 20:24 Dose: 1 mg Lorazepam (Ativan) 0 mg IVPUSH Q4H PRN; Protocol PRN Reason: Withdrawal Symptoms Lorazepam (Ativan) 2 mg IVPUSH Q4H PRN PRN Reason: Seizures Miscellaneous Information (Remove Patch) 1 ea TRDERM Q24H [facility] Nicotine (Habitrol) 14 mg TRDERM Q24H [facility] Last Admin: 06/29/19 12:17 Dose: 14 mg Ondansetron HCl (Zofran) 4 mg IV Q6H PRN PRN Reason: Nausea/Vomiting Pantoprazole Sodium (Protonix) 40 mg PO BID [facility] Last Admin: 06/29/19 20:25 Dose: 40 mg Polyethylene Glycol (Miralax) 17 gm PO DAILY PRN PRN Reason: Constipation Senna/Docusate Sodium (Senna Plus) 1 tab PO BID PRN PRN Reason: Constipation Simvastatin (Zocor) 20 mg PO BEDTIME [facility] Last Admin: 06/29/19 22:19 Dose: 20 mg Sodium Chloride (Saline Flush) 10 ml FLUSH ASDIRECTED PRN PRN Reason: Keep Vein Open Last Admin: 06/28/19 13:25 Dose: 10 ml Thiamine HCl (Vitamin B-1) 100 mg PO DAILY [facility] Vancomycin HCl (Pharmacy To Dose - Vancomycin) 1 dose .XX ASDIRECTED PRN PRN Reason: RX TO DOSE VANCOMYCIN Discontinued Medications Dexamethasone (Dexamethasone) 20 mg IVPUSH Q6H [facility] Last Admin: 06/29/19 02:04 Dose: 20 mg Folic Acid (Folic Acid) 1 mg SUBCUT ONETIME ONE Stop: 06/28/19 18:56 Last Admin: 06/28/19 20:22 Dose: 1 mg Gadobenate Dimeglumine (Multihance) 20 ml IVPUSH ONETIME ONE Stop: 06/29/19 09:16 Last Admin: 06/29/19 09:58 Dose: 20 ml Sodium Chloride (Normal Saline) 1,000 mls @ 1,000 mls/hr IV .BOLUS [facility] Last Admin: 06/28/19 13:23 Dose: 1,000 mls/hr Lactated Ringer's (Ringers, Lactated) 1,000 mls @ 1,000 mls/hr IV .BOLUS ONE Stop: 06/28/19 17:05 Last Admin: 06/28/19 16:18 Dose: 1,000 mls/hr Lactated Ringer's (Ringers, Lactated) 1,000 mls @ 150 mls/hr IV ASDIRECTED [facility] Last Admin: 06/28/19 17:31 Dose: 150 mls/hr Dextrose/Sodium Chloride (Dextrose 5%-Normal Saline) 1,000 mls @ 125 mls/hr IV ASDIRECTED [facility] Last Admin: 06/29/19 04:11 Dose: 125 mls/hr Thiamine HCl 100 mg/ Sodium (Chloride) 51 mls @ 100 mls/hr IV DAILY [facility] Ceftriaxone Sodium 2 gm/ (Sodium Chloride) 100 mls @ 200 mls/hr IV Q24H [facility] Last Admin: 06/28/19 22:44 Dose: Not Given Vancomycin HCl 1,000 mg/ (Sodium Chloride) 250 mls @ 166.667 mls/hr IV Q12H [facility] Last Admin: 06/28/19 19:55 Dose: Not Given Vancomycin HCl 1.5 gm/ Sodium (Chloride) 500 mls @ 333.333 mls/hr IV Q8H [facility] Thiamine HCl 100 mg/ Sodium (Chloride) 101 mls @ 198.039 mls/hr IV ONETIME ONE Stop: 06/28/19 20:30 Last Admin: 06/28/19 20:28 Dose: 198.039 mls/hr Acyclovir 1,000 mg/ Sodium (Chloride) 120 mls @ 100 mls/hr IV Q8H [facility] Last Admin: 06/28/19 22:44 Dose: Not Given Vancomycin HCl 2 gm/ Sodium (Chloride) 500 mls @ 250 mls/hr IV ONETIME ONE Stop: 06/29/19 00:29 Last Admin: 06/28/19 22:23 Dose: 250 mls/hr Vancomycin HCl 1.5 gm/ Sodium (Chloride) 500 mls @ 333.333 mls/hr IV Q8H [facility] Last Admin: 06/29/19 14:41 Dose: 333.333 mls/hr Acyclovir 1,000 mg/ Sodium (Chloride) 120 mls @ 100 mls/hr IV Q8H [facility] Ceftriaxone Sodium 2 gm/ (Sodium Chloride) 100 mls @ 200 mls/hr IV Q24H [facility] Acyclovir 1,000 mg/ Sodium (Chloride) 120 mls @ 100 mls/hr IV Q8H [facility] Last Admin: 06/29/19 06:00 Dose: 100 mls/hr Ceftriaxone Sodium 2 gm/ (Sodium Chloride) 100 mls @ 200 mls/hr IV Q24H [facility] Last Admin: 06/28/19 23:31 Dose: 200 mls/hr Magnesium Sulfate 2 gm/ Premix 50 mls @ 25 mls/hr IV ONETIME ONE Stop: 06/29/19 10:48 Last Admin: 06/29/19 10:18 Dose: 25 mls/hr Lactated Ringer's (Ringers, Lactated) 500 mls @ 999 mls/hr IV .BOLUS ONE Stop: 06/29/19 13:17 Last Admin: 06/29/19 12:53 Dose: 999 mls/hr Lactated Ringer's (Ringers, Lactated) Confirm Administered Dose 1,000 mls @ as directed .ROUTE .STK-MED ONE Stop: 06/29/19 12:51 Last Admin: 06/29/19 13:05 Dose: Not Given Vancomycin HCl 2 gm/ Sodium (Chloride) 500 mls @ 333.333 mls/hr IV Q8H [facility] Last Admin: 06/29/19 22:23 Dose: Not Given Lactated Ringer's (Ringers, Lactated) 1,000 mls @ 999 mls/hr IV .BOLUS ONE Stop: 06/30/19 00:28 Last Admin: 06/29/19 23:42 Dose: 999 mls/hr Insulin Human Lispro (Humalog) 0 unit SUBCUT Q6H [facility]; Protocol Last Admin: 06/29/19 05:51 Dose: 2 units Lorazepam (Ativan) 3 mg IVPUSH ONETIME ONE Stop: 06/28/19 18:51 Last Admin: 06/28/19 19:08 Dose: 3 mg Lorazepam (Ativan) 2 mg IVPUSH ONETIME ONE Stop: 06/29/19 08:58 Last Admin: 06/29/19 10:23 Dose: 2 mg Multivitamins (Thera) 1 each PO ONETIME ONE Stop: 06/28/19 18:56 Last Admin: 06/28/19 22:39 Dose: Not Given Pantoprazole Sodium (Protonix Iv) 40 mg IV Q12HR [facility] Last Admin: 06/29/19 08:24 Dose: 40 mg Sodium Chloride (Saline Flush) 10 ml FLUSH ONETIME PRN PRN Reason: Keep Vein Open Stop: 06/29/19 18:00 Last Admin: 06/29/19 09:59 Dose: 10 ml Sodium Chloride (Normal Saline) 30 ml IV ONETIME ONE Stop: 06/29/19 09:16 Last Admin: 06/29/19 09:59 Dose: 30 ml Thiamine HCl (Vitamin B-1) 100 mg IVPUSH DAILY [facility] Last Admin: 06/29/19 08:22 Dose: 100 mg - Exam General: Alert, Oriented, Cooperative, No Acute Distress HEENT: Pupils Equal, Pupils Reactive, EOMI, Mucous Membr. Moist/[place] Neck: Supple, Trachea Midline, No JVD, No Thyromegaly Lungs: Clear to Auscultation, Normal Respiratory Effort. No: Crackles, Rales, Rhonchi, Rub, Wheezing Cardiovascular: Regular Rate, Regular Rhythm, No Murmurs. No: Gallops, Rubs GI/Abdominal Exam: Normal Bowel Sounds, Soft, Non-Tender, No Organomegaly, No Distention, No Mass Back Exam: Normal Inspection, Full Range of Motion Extremities: Normal Inspection, Normal Range of Motion, Non-Tender, No Pedal Edema, Normal Capillary Refill Skin: Warm, Dry, Intact, Rash (Left sided, pustular) Wound/Incisions: Healing Well Neurological: No New Focal Deficit, Normal Gait, Normal Speech, Normal Tone, Cranial Nerves Intact Psy/Mental Status: Alert, Normal Affect, Normal Mood - Problem List Review Problem List Initiated/Reviewed/Updated: Yes - Plan Plan:: Assessment Acute: Altered Mental Status 2/2 toxic metabolic encephalopathy - DDx remains broad - cannot rule out stroke, TIA, meningitis, encephalitis at this time--> CT, MRI negative - LP negative at this time. 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 - 2D echo to rule out cardiac etiology - Receiving vancomycin and ceftriaxone per meningitis protocol - Received dose of acyclovir for HSV coverage Leukocytosis - WBC 11.73 -->12.65 - Possible stress response - Continue to monitor Hyperglycemia - BG 144 --> 198 this am - Pt is DM type 1 - continue home insulin regimen Hypothyroidism - TSH elevated at 5.026 Plan: Teleconsult with psychiatry Await lab results for possible infectious etiology Continue home insulin regimen Normal diet Increase activity Full Code LOS pending results of cultures Prognosis - guarded good Additional orders as above Pt has shown vast clinical improvement in cognition since admission. Reason for this is not clear as pt was treated aggressively. The patient was seen and examined at bedside in concert with the medical student. The admission assessment and plans were discussed and agreed upon with me. Patient is doing way much better since last night. He is more alert, awake and conversive. He is able to maintain a good conversation. We will continue current treatment as we wait for additional tests to come back. His family was updated about his diagnoses and treatment plan. Tele-psych consult ordered. Additional Diagnoses: Polypharmacy and Possible Intention Drug Overdose due to undergoing marital stress. His filed a restraining order on him and looks like plans to split away from him. <Angelina Wang III - Last Filed: 06/30/19 16:47> - Patient Data Vitals - Most Recent: Last Vital Signs Temp 97.5 F 06/30/19 11:32 Pulse 103 H 06/30/19 11:32 Resp 26 H 06/30/19 11:32 BP 140/81 06/30/19 11:32 Pulse Ox 97 06/30/19 11:32 I&O - Last 24 Hours: Intake & Output 06/30/19 06/30/19 06/30/19 06:59 14:59 22:59 Intake Total 4400 440 Output Total 2800 Balance 1600 440 Lab Results Last 24 Hours: Laboratory Results - last 24 hr 06/28/19 06/28/19 06/29/19 Range/Units 22:00 22:15 03:40 WBC (4.23-9.07) K/mm3 RBC (4.63-6.08) M/mm3 Hgb (13.7-17.5) gm/dl Hct (40.1-51.0) % MCV (79.0-92.2) fl MCH (25.7-32.2) pg MCHC (32.2-35.5) g/dl RDW Std Deviation (35.1-43.9) fL Plt Count (163-337) K/mm3 MPV (9.4-12.3) fl Neut % (Auto) (34.0-67.9) % Lymph % (Auto) (21.8-53.1) % [place] % (Auto) (5.3-12.2) % Eos % (Auto) (0.8-7.0) Baso % (Auto) (0.1-1.2) % Neut # (Auto) (1.78-5.38) K/mm3 Lymph # (Auto) (1.32-3.57) K/mm3 [place] # (Auto) (0.30-0.82) K/mm3 Eos # (Auto) (0.04-0.54) K/mm3 Baso # (Auto) (0.01-0.08) K/mm3 Manual Slide Review Sodium (136-145) mEq/L Potassium (3.5-5.1) mEq/L Chloride (98-107) mEq/L Carbon Dioxide (21-32) mEq/L Anion Gap (5-15) BUN (7-18) mg/dL Creatinine (0.7-1.3) mg/dL Est Cr Clr Drug Dosing mL/min Estimated GFR (MDRD) (>60) mL/min BUN/Creatinine Ratio (14-18) Glucose (74-106) mg/dL POC Glucose (70-105) mg/dL Lactic Acid (0.4-2.0) mmol/L Calcium (8.5-10.1) mg/dL Magnesium (1.8-2.4) mg/dl Triglycerides (<150) mg/dL Cholesterol (<200) mg/dL LDL Cholesterol Direct (<100) mg/dL HDL Cholesterol (40-59) mg/dL Urine Mucus Not seen (FEW) /hpf Ur Random Creatinine (30.0-125.0) mg/dL Ur Random Microalbumin (1.3-20.0) mg/L Microalb/Creat Ratio (0-30) mg/g CSF C.neoform/gat PCR Not detected (Not Detected) Vancomycin Trough (10.0-20.0) Adenovirus (PCR) Not detected (Not Detected) B. pertussis DNA (PCR) Not detected (Not Detected) B.parapertussis DNA PCR Not detected (Not Detected) C. pneumoniae DNA (PCR) Not detected (Not Detected) Coronavirus (PCR) Not detected (Not Detected) CMV Detection Not detected (Not Detected) Enterovirus DNA (PCR) Not detected (Not Detected) E. coli (PCR) Not detected (Not Detected) H. influenzae DNA Not detected (Not Detected) HSV I DNA PCR Not detected (Not Detected) HSV II DNA PCR Not detected (Not Detected) Herpesvirus 6 Not detected (Not Detected) Human Metapneumovir PCR Not detected (Not Detected) Influenza A (RT-PCR) Not detected (Not Detected) Influenza B (RT-PCR) Not detected (Not Detected) List. monocytogenes PCR Not detected (Not Detected) M. pneumoniae (PCR) Not detected (Not Detected) N. meningitidis (PCR) Not detected (Not Detected) Parainfluen 1,2,3,4 PCR Not detected (Not Detected) Parechovirus (PCR) Not detected (Not Detected) RSV (PCR) Not detected (Not Detected) Entero/Rhino (PCR) Not detected (Not Detected) Strep agalactiae (PCR) Not detected (Not Detected) Strep pneumoniae (PCR) Not detected (Not Detected) VZV DNA (PCR) Not detected (Not Detected) 06/29/19 06/29/19 06/29/19 Range/Units 03:40 17:03 17:56 WBC (4.23-9.07) K/mm3 RBC (4.63-6.08) M/mm3 Hgb (13.7-17.5) gm/dl Hct (40.1-51.0) % MCV (79.0-92.2) fl MCH (25.7-32.2) pg MCHC (32.2-35.5) g/dl RDW Std Deviation (35.1-43.9) fL Plt Count (163-337) K/mm3 MPV (9.4-12.3) fl Neut % (Auto) (34.0-67.9) % Lymph % (Auto) (21.8-53.1) % [place] % (Auto) (5.3-12.2) % Eos % (Auto) (0.8-7.0) Baso % (Auto) (0.1-1.2) % Neut # (Auto) (1.78-5.38) K/mm3 Lymph # (Auto) (1.32-3.57) K/mm3 [place] # (Auto) (0.30-0.82) K/mm3 Eos # (Auto) (0.04-0.54) K/mm3 Baso # (Auto) (0.01-0.08) K/mm3 Manual Slide Review Sodium (136-145) mEq/L Potassium (3.5-5.1) mEq/L Chloride (98-107) mEq/L Carbon Dioxide (21-32) mEq/L Anion Gap (5-15) BUN (7-18) mg/dL Creatinine (0.7-1.3) mg/dL Est Cr Clr Drug Dosing mL/min Estimated GFR (MDRD) (>60) mL/min BUN/Creatinine Ratio (14-18) Glucose (74-106) mg/dL POC Glucose 140 H (70-105) mg/dL Lactic Acid 3.4 H (0.4-2.0) mmol/L Calcium (8.5-10.1) mg/dL Magnesium (1.8-2.4) mg/dl Triglycerides (<150) mg/dL Cholesterol (<200) mg/dL LDL Cholesterol Direct (<100) mg/dL HDL Cholesterol (40-59) mg/dL Urine Mucus (FEW) /hpf Ur Random Creatinine 128.1 H (30.0-125.0) mg/dL Ur Random Microalbumin 3.3 (1.3-20.0) mg/L Microalb/Creat Ratio 2.5 (0-30) mg/g CSF C.neoform/gat PCR (Not Detected) Vancomycin Trough (10.0-20.0) Adenovirus (PCR) (Not Detected) B. pertussis DNA (PCR) (Not Detected) B.parapertussis DNA PCR (Not Detected) C. pneumoniae DNA (PCR) (Not Detected) Coronavirus (PCR) (Not Detected) CMV Detection (Not Detected) Enterovirus DNA (PCR) (Not Detected) E. coli (PCR) (Not Detected) H. influenzae DNA (Not Detected) HSV I DNA PCR (Not Detected) HSV II DNA PCR (Not Detected) Herpesvirus 6 (Not Detected) Human Metapneumovir PCR (Not Detected) Influenza A (RT-PCR) (Not Detected) Influenza B (RT-PCR) (Not Detected) List. monocytogenes PCR (Not Detected) M. pneumoniae (PCR) (Not Detected) N. meningitidis (PCR) (Not Detected) Parainfluen 1,2,3,4 PCR (Not Detected) Parechovirus (PCR) (Not Detected) RSV (PCR) (Not Detected) Entero/Rhino (PCR) (Not Detected) Strep agalactiae (PCR) (Not Detected) Strep pneumoniae (PCR) (Not Detected) VZV DNA (PCR) (Not Detected) 06/29/19 06/29/19 06/29/19 Range/Units 21:09 21:09 23:01 WBC (4.23-9.07) K/mm3 RBC (4.63-6.08) M/mm3 Hgb (13.7-17.5) gm/dl Hct (40.1-51.0) % MCV (79.0-92.2) fl MCH (25.7-32.2) pg MCHC (32.2-35.5) g/dl RDW Std Deviation (35.1-43.9) fL Plt Count (163-337) K/mm3 MPV (9.4-12.3) fl Neut % (Auto) (34.0-67.9) % Lymph % (Auto) (21.8-53.1) % [place] % (Auto) (5.3-12.2) % Eos % (Auto) (0.8-7.0) Baso % (Auto) (0.1-1.2) % Neut # (Auto) (1.78-5.38) K/mm3 Lymph # (Auto) (1.32-3.57) K/mm3 [place] # (Auto) (0.30-0.82) K/mm3 Eos # (Auto) (0.04-0.54) K/mm3 Baso # (Auto) (0.01-0.08) K/mm3 Manual Slide Review Sodium (136-145) mEq/L Potassium (3.5-5.1) mEq/L Chloride (98-107) mEq/L Carbon Dioxide (21-32) mEq/L Anion Gap (5-15) BUN (7-18) mg/dL Creatinine (0.7-1.3) mg/dL Est Cr Clr Drug Dosing mL/min Estimated GFR (MDRD) (>60) mL/min BUN/Creatinine Ratio (14-18) Glucose (74-106) mg/dL POC Glucose 176 H (70-105) mg/dL Lactic Acid 5.9 H (0.4-2.0) mmol/L Calcium (8.5-10.1) mg/dL Magnesium (1.8-2.4) mg/dl Triglycerides (<150) mg/dL Cholesterol (<200) mg/dL LDL Cholesterol Direct (<100) mg/dL HDL Cholesterol (40-59) mg/dL Urine Mucus (FEW) /hpf Ur Random Creatinine (30.0-125.0) mg/dL Ur Random Microalbumin (1.3-20.0) mg/L Microalb/Creat Ratio (0-30) mg/g CSF C.neoform/gat PCR (Not Detected) Vancomycin Trough 8.6 L (10.0-20.0) Adenovirus (PCR) (Not Detected) B. pertussis DNA (PCR) (Not Detected) B.parapertussis DNA PCR (Not Detected) C. pneumoniae DNA (PCR) (Not Detected) Coronavirus (PCR) (Not Detected) CMV Detection (Not Detected) Enterovirus DNA (PCR) (Not Detected) E. coli (PCR) (Not Detected) H. influenzae DNA (Not Detected) HSV I DNA PCR (Not Detected) HSV II DNA PCR (Not Detected) Herpesvirus 6 (Not Detected) Human Metapneumovir PCR (Not Detected) Influenza A (RT-PCR) (Not Detected) Influenza B (RT-PCR) (Not Detected) List. monocytogenes PCR (Not Detected) M. pneumoniae (PCR) (Not Detected) N. meningitidis (PCR) (Not Detected) Parainfluen 1,2,3,4 PCR (Not Detected) Parechovirus (PCR) (Not Detected) RSV (PCR) (Not Detected) Entero/Rhino (PCR) (Not Detected) Strep agalactiae (PCR) (Not Detected) Strep pneumoniae (PCR) (Not Detected) VZV DNA (PCR) (Not Detected) 06/30/19 06/30/19 06/30/19 Range/Units 01:05 05:35 05:35 WBC 12.65 H (4.23-9.07) K/mm3 RBC 4.82 (4.63-6.08) M/mm3 Hgb 15.1 (13.7-17.5) gm/dl Hct 45.7 (40.1-51.0) % MCV 94.8 H (79.0-92.2) fl MCH 31.3 (25.7-32.2) pg MCHC 33.0 (32.2-35.5) g/dl RDW Std Deviation 46.6 H (35.1-43.9) fL Plt Count 197 (163-337) K/mm3 MPV 11.3 (9.4-12.3) fl Neut % (Auto) 91.5 H (34.0-67.9) % Lymph % (Auto) 4.7 L (21.8-53.1) % [place] % (Auto) 3.5 L (5.3-12.2) % Eos % (Auto) 0.1 L (0.8-7.0) Baso % (Auto) 0.0 L (0.1-1.2) % Neut # (Auto) 11.58 H (1.78-5.38) K/mm3 Lymph # (Auto) 0.59 L (1.32-3.57) K/mm3 [place] # (Auto) 0.44 (0.30-0.82) K/mm3 Eos # (Auto) 0.01 L (0.04-0.54) K/mm3 Baso # (Auto) 0.00 L (0.01-0.08) K/mm3 Manual Slide Review Abnormal smear Sodium 141 (136-145) mEq/L Potassium 4.0 (3.5-5.1) mEq/L Chloride 105 (98-107) mEq/L Carbon Dioxide 26 (21-32) mEq/L Anion Gap 14.0 (5-15) BUN 9 (7-18) mg/dL Creatinine 1.0 (0.7-1.3) mg/dL Est Cr Clr Drug Dosing 103.42 mL/min Estimated GFR (MDRD) > 60 (>60) mL/min BUN/Creatinine Ratio 9.0 L (14-18) Glucose 198 H (74-106) mg/dL POC Glucose (70-105) mg/dL Lactic Acid 2.8 H (0.4-2.0) mmol/L Calcium 9.4 (8.5-10.1) mg/dL Magnesium 1.7 L (1.8-2.4) mg/dl Triglycerides 64 (<150) mg/dL Cholesterol 121 (<200) mg/dL LDL Cholesterol Direct 55 (<100) mg/dL HDL Cholesterol 53.0 (40-59) mg/dL Urine Mucus (FEW) /hpf Ur Random Creatinine (30.0-125.0) mg/dL Ur Random Microalbumin (1.3-20.0) mg/L Microalb/Creat Ratio (0-30) mg/g CSF C.neoform/gat PCR (Not Detected) Vancomycin Trough (10.0-20.0) Adenovirus (PCR) (Not Detected) B. pertussis DNA (PCR) (Not Detected) B.parapertussis DNA PCR (Not Detected) C. pneumoniae DNA (PCR) (Not Detected) Coronavirus (PCR) (Not Detected) CMV Detection (Not Detected) Enterovirus DNA (PCR) (Not Detected) E. coli (PCR) (Not Detected) H. influenzae DNA (Not Detected) HSV I DNA PCR (Not Detected) HSV II DNA PCR (Not Detected) Herpesvirus 6 (Not Detected) Human Metapneumovir PCR (Not Detected) Influenza A (RT-PCR) (Not Detected) Influenza B (RT-PCR) (Not Detected) List. monocytogenes PCR (Not Detected) M. pneumoniae (PCR) (Not Detected) N. meningitidis (PCR) (Not Detected) Parainfluen 1,2,3,4 PCR (Not Detected) Parechovirus (PCR) (Not Detected) RSV (PCR) (Not Detected) Entero/Rhino (PCR) (Not Detected) Strep agalactiae (PCR) (Not Detected) Strep pneumoniae (PCR) (Not Detected) VZV DNA (PCR) (Not Detected) 06/30/19 06/30/19 06/30/19 Range/Units 06:03 09:20 11:50 WBC (4.23-9.07) K/mm3 RBC (4.63-6.08) M/mm3 Hgb (13.7-17.5) gm/dl Hct (40.1-51.0) % MCV (79.0-92.2) fl MCH (25.7-32.2) pg MCHC (32.2-35.5) g/dl RDW Std Deviation (35.1-43.9) fL Plt Count (163-337) K/mm3 MPV (9.4-12.3) fl Neut % (Auto) (34.0-67.9) % Lymph % (Auto) (21.8-53.1) % [place] % (Auto) (5.3-12.2) % Eos % (Auto) (0.8-7.0) Baso % (Auto) (0.1-1.2) % Neut # (Auto) (1.78-5.38) K/mm3 Lymph # (Auto) (1.32-3.57) K/mm3 [place] # (Auto) (0.30-0.82) K/mm3 Eos # (Auto) (0.04-0.54) K/mm3 Baso # (Auto) (0.01-0.08) K/mm3 Manual Slide Review Sodium (136-145) mEq/L Potassium (3.5-5.1) mEq/L Chloride (98-107) mEq/L Carbon Dioxide (21-32) mEq/L Anion Gap (5-15) BUN (7-18) mg/dL Creatinine (0.7-1.3) mg/dL Est Cr Clr Drug Dosing mL/min Estimated GFR (MDRD) (>60) mL/min BUN/Creatinine Ratio (14-18) Glucose (74-106) mg/dL POC Glucose 173 H 240 H (70-105) mg/dL Lactic Acid 2.8 H (0.4-2.0) mmol/L Calcium (8.5-10.1) mg/dL Magnesium (1.8-2.4) mg/dl Triglycerides (<150) mg/dL Cholesterol (<200) mg/dL LDL Cholesterol Direct (<100) mg/dL HDL Cholesterol (40-59) mg/dL Urine Mucus (FEW) /hpf Ur Random Creatinine (30.0-125.0) mg/dL Ur Random Microalbumin (1.3-20.0) mg/L Microalb/Creat Ratio (0-30) mg/g CSF C.neoform/gat PCR (Not Detected) Vancomycin Trough (10.0-20.0) Adenovirus (PCR) (Not Detected) B. pertussis DNA (PCR) (Not Detected) B.parapertussis DNA PCR (Not Detected) C. pneumoniae DNA (PCR) (Not Detected) Coronavirus (PCR) (Not Detected) CMV Detection (Not Detected) Enterovirus DNA (PCR) (Not Detected) E. coli (PCR) (Not Detected) H. influenzae DNA (Not Detected) HSV I DNA PCR (Not Detected) HSV II DNA PCR (Not Detected) Herpesvirus 6 (Not Detected) Human Metapneumovir PCR (Not Detected) Influenza A (RT-PCR) (Not Detected) Influenza B (RT-PCR) (Not Detected) List. monocytogenes PCR (Not Detected) M. pneumoniae (PCR) (Not Detected) N. meningitidis (PCR) (Not Detected) Parainfluen 1,2,3,4 PCR (Not Detected) Parechovirus (PCR) (Not Detected) RSV (PCR) (Not Detected) Entero/Rhino (PCR) (Not Detected) Strep agalactiae (PCR) (Not Detected) Strep pneumoniae (PCR) (Not Detected) VZV DNA (PCR) (Not Detected) Jerman Results Last 24 Hours: Microbiology 06/29/19 11:58 Aerobic Blood Culture - Preliminary Blood - Venous NO GROWTH AFTER 1 DAY Anaerobic Blood Culture - Preliminary NO GROWTH AFTER 1 DAY 06/29/19 11:45 Aerobic Blood Culture - Preliminary Blood - Venous - Lab Draw NO GROWTH AFTER 1 DAY Anaerobic Blood Culture - Preliminary NO GROWTH AFTER 1 DAY 06/28/19 22:00 Gram Stain - Final Cerebral Spinal Fluid CSF Culture - Preliminary NO GROWTH AFTER 2 DAYS 06/28/19 22:00 Streptococcus pneumoniae Antigen (M - Final Cerebral Spinal Fluid Med Orders - Current: Current Medications Acetaminophen (Tylenol) 650 mg PO Q4H PRN PRN Reason: Pain (Mild 1-3)/fever Hydrocodone Bitart/Acetaminophen (B[place]win 325-5 Mg) 1 tab PO Q4H PRN PRN Reason: Pain (moderate 4-6) Albuterol/Ipratropium (Duoneb 3.0-0.5 Mg/3 Ml) 3 ml NEB Q4H PRN PRN Reason: Shortness Of Breath/wheezing Aspirin (Aspirin) 81 mg PO BEDTIME [facility] Last Admin: 06/29/19 22:19 Dose: 81 mg Bisacodyl (Dulcolax) 5 mg PO DAILY PRN PRN Reason: Constipation Chlordiazepoxide HCl (Librium) 25 mg PO Q8H PRN PRN Reason: Withdrawal Symptoms Clonidine HCl (Catapres) 0.1 mg PO Q4H PRN PRN Reason: Agitation Last Admin: 06/29/19 12:16 Dose: 0.1 mg Dexamethasone (Dexamethasone) 20 mg IVPUSH Q6H [facility] Last Admin: 06/30/19 13:32 Dose: 20 mg Dextrose/Water (Dextrose 50% In Water) 50 ml IVPUSH ASDIRECTED PRN PRN Reason: Hypoglycemia Docusate Sodium (Colace) 100 mg PO BID PRN PRN Reason: Constipation Folic Acid (Folic Acid) 1 mg PO DAILY [facility] Stop: 07/01/19 09:01 Last Admin: 06/30/19 09:23 Dose: 1 mg Haloperidol Lactate (Haldol) 2 mg IM Q4H PRN PRN Reason: Agitation Hydromorphone HCl (Dilaudid) 0.25 mg IVPUSH Q2H PRN PRN Reason: Pain (severe 7-10) Promethazine HCl 6.25 mg/ (Sodium Chloride) 50.25 mls @ 100 mls/hr IV Q6H PRN PRN Reason: Nausea/Vomiting Ceftriaxone Sodium 2 gm/ (Sodium Chloride) 100 mls @ 200 mls/hr IV Q12H [facility] Last Admin: 06/30/19 12:00 Dose: 200 mls/hr Acyclovir 730 mg/ Sodium (Chloride) 114.6 mls @ 95.5 mls/hr IV Q8H [facility] Last Admin: 06/30/19 14:40 Dose: 95.5 mls/hr Vancomycin HCl 2 gm/ Sodium (Chloride) 500 mls @ 333.333 mls/hr IV Q8H [facility] Last Admin: 06/30/19 14:37 Dose: 333.333 mls/hr Lactated Ringer's (Ringers, Lactated) 1,000 mls @ 125 mls/hr IV ASDIRECTED [facility] Last Admin: 06/30/19 13:29 Dose: 125 mls/hr Insulin Human Lispro (Humalog) 0 unit SUBCUT Q6HR [facility]; Protocol Last Admin: 06/30/19 11:53 Dose: 4 units Lorazepam (Ativan) 1 mg IV Q6H PRN PRN Reason: Anxiety Last Admin: 06/29/19 20:24 Dose: 1 mg Lorazepam (Ativan) 0 mg IVPUSH Q4H PRN; Protocol PRN Reason: Withdrawal Symptoms Lorazepam (Ativan) 2 mg IVPUSH Q4H PRN PRN Reason: Seizures Mirtazapine (Remeron) 15 mg PO BEDTIME [facility] Miscellaneous Information (Remove Patch) 1 ea TRDERM Q24H [facility] Last Admin: 06/30/19 11:54 Dose: 1 ea Nicotine (Habitrol) 14 mg TRDERM Q24H [facility] Last Admin: 06/30/19 11:56 Dose: 14 mg Ondansetron HCl (Zofran) 4 mg IV Q6H PRN PRN Reason: Nausea/Vomiting Pantoprazole Sodium (Protonix) 40 mg PO BID [facility] Last Admin: 06/30/19 09:23 Dose: 40 mg Polyethylene Glycol (Miralax) 17 gm PO DAILY PRN PRN Reason: Constipation Senna/Docusate Sodium (Senna Plus) 1 tab PO BID PRN PRN Reason: Constipation Simvastatin (Zocor) 20 mg PO BEDTIME [facility] Last Admin: 06/29/19 22:19 Dose: 20 mg Sodium Chloride (Saline Flush) 10 ml FLUSH ASDIRECTED PRN PRN Reason: Keep Vein Open Last Admin: 06/28/19 13:25 Dose: 10 ml Thiamine HCl (Vitamin B-1) 100 mg PO DAILY [facility] Last Admin: 06/30/19 09:23 Dose: 100 mg Topiramate (Topamax) 25 mg PO BID [facility] Vancomycin HCl (Pharmacy To Dose - Vancomycin) 1 dose .XX ASDIRECTED PRN PRN Reason: RX TO DOSE VANCOMYCIN Discontinued Medications Dexamethasone (Dexamethasone) 20 mg IVPUSH Q6H [facility] Last Admin: 06/29/19 02:04 Dose: 20 mg Folic Acid (Folic Acid) 1 mg SUBCUT ONETIME ONE Stop: 06/28/19 18:56 Last Admin: 06/28/19 20:22 Dose: 1 mg Gadobenate Dimeglumine (Multihance) 20 ml IVPUSH ONETIME ONE Stop: 06/29/19 09:16 Last Admin: 06/29/19 09:58 Dose: 20 ml Sodium Chloride (Normal Saline) 1,000 mls @ 1,000 mls/hr IV .BOLUS [facility] Last Admin: 06/28/19 13:23 Dose: 1,000 mls/hr Lactated Ringer's (Ringers, Lactated) 1,000 mls @ 1,000 mls/hr IV .BOLUS ONE Stop: 06/28/19 17:05 Last Admin: 06/28/19 16:18 Dose: 1,000 mls/hr Lactated Ringer's (Ringers, Lactated) 1,000 mls @ 150 mls/hr IV ASDIRECTED [facility] Last Admin: 06/28/19 17:31 Dose: 150 mls/hr Dextrose/Sodium Chloride (Dextrose 5%-Normal Saline) 1,000 mls @ 125 mls/hr IV ASDIRECTED [facility] Last Admin: 06/29/19 04:11 Dose: 125 mls/hr Thiamine HCl 100 mg/ Sodium (Chloride) 51 mls @ 100 mls/hr IV DAILY [facility] Ceftriaxone Sodium 2 gm/ (Sodium Chloride) 100 mls @ 200 mls/hr IV Q24H [facility] Last Admin: 06/28/19 22:44 Dose: Not Given Vancomycin HCl 1,000 mg/ (Sodium Chloride) 250 mls @ 166.667 mls/hr IV Q12H [facility] Last Admin: 06/28/19 19:55 Dose: Not Given Vancomycin HCl 1.5 gm/ Sodium (Chloride) 500 mls @ 333.333 mls/hr IV Q8H [facility] Thiamine HCl 100 mg/ Sodium (Chloride) 101 mls @ 198.039 mls/hr IV ONETIME ONE Stop: 06/28/19 20:30 Last Admin: 06/28/19 20:28 Dose: 198.039 mls/hr Acyclovir 1,000 mg/ Sodium (Chloride) 120 mls @ 100 mls/hr IV Q8H [facility] Last Admin: 06/28/19 22:44 Dose: Not Given Vancomycin HCl 2 gm/ Sodium (Chloride) 500 mls @ 250 mls/hr IV ONETIME ONE Stop: 06/29/19 00:29 Last Admin: 06/28/19 22:23 Dose: 250 mls/hr Vancomycin HCl 1.5 gm/ Sodium (Chloride) 500 mls @ 333.333 mls/hr IV Q8H [facility] Last Admin: 06/29/19 14:41 Dose: 333.333 mls/hr Acyclovir 1,000 mg/ Sodium (Chloride) 120 mls @ 100 mls/hr IV Q8H [facility] Ceftriaxone Sodium 2 gm/ (Sodium Chloride) 100 mls @ 200 mls/hr IV Q24H [facility] Acyclovir 1,000 mg/ Sodium (Chloride) 120 mls @ 100 mls/hr IV Q8H [facility] Last Admin: 06/29/19 06:00 Dose: 100 mls/hr Ceftriaxone Sodium 2 gm/ (Sodium Chloride) 100 mls @ 200 mls/hr IV Q24H [facility] Last Admin: 06/28/19 23:31 Dose: 200 mls/hr Magnesium Sulfate 2 gm/ Premix 50 mls @ 25 mls/hr IV ONETIME ONE Stop: 06/29/19 10:48 Last Admin: 06/29/19 10:18 Dose: 25 mls/hr Lactated Ringer's (Ringers, Lactated) 1,000 mls @ 250 mls/hr IV ASDIRECTED [facility] Last Admin: 06/30/19 09:18 Dose: 250 mls/hr Lactated Ringer's (Ringers, Lactated) 500 mls @ 999 mls/hr IV .BOLUS ONE Stop: 06/29/19 13:17 Last Admin: 06/29/19 12:53 Dose: 999 mls/hr Lactated Ringer's (Ringers, Lactated) Confirm Administered Dose 1,000 mls @ as directed .ROUTE .STK-MED ONE Stop: 06/29/19 12:51 Last Admin: 06/29/19 13:05 Dose: Not Given Vancomycin HCl 2 gm/ Sodium (Chloride) 500 mls @ 333.333 mls/hr IV Q8H [facility] Last Admin: 06/29/19 22:23 Dose: Not Given Lactated Ringer's (Ringers, Lactated) 1,000 mls @ 999 mls/hr IV .BOLUS ONE Stop: 06/30/19 00:28 Last Admin: 06/29/19 23:42 Dose: 999 mls/hr Magnesium Sulfate 2 gm/ Premix 50 mls @ 25 mls/hr IV ONETIME ONE Stop: 06/30/19 10:59 Last Admin: 06/30/19 09:20 Dose: 25 mls/hr Insulin Human Lispro (Humalog) 0 unit SUBCUT Q6H [facility]; Protocol Last Admin: 06/29/19 05:51 Dose: 2 units Lorazepam (Ativan) 3 mg IVPUSH ONETIME ONE Stop: 06/28/19 18:51 Last Admin: 06/28/19 19:08 Dose: 3 mg Lorazepam (Ativan) 2 mg IVPUSH ONETIME ONE Stop: 06/29/19 08:58 Last Admin: 06/29/19 10:23 Dose: 2 mg Multivitamins (Thera) 1 each PO ONETIME ONE Stop: 06/28/19 18:56 Last Admin: 06/28/19 22:39 Dose: Not Given Pantoprazole Sodium (Protonix Iv) 40 mg IV Q12HR [facility] Last Admin: 06/29/19 08:24 Dose: 40 mg Sodium Chloride (Saline Flush) 10 ml FLUSH ONETIME PRN PRN Reason: Keep Vein Open Stop: 06/29/19 18:00 Last Admin: 06/29/19 09:59 Dose: 10 ml Sodium Chloride (Normal Saline) 30 ml IV ONETIME ONE Stop: 06/29/19 09:16 Last Admin: 06/29/19 09:59 Dose: 30 ml Thiamine HCl (Vitamin B-1) 100 mg IVPUSH DAILY [facility] Last Admin: 06/29/19 08:22 Dose: 100 mg - Problem List Review Problem List Initiated/Reviewed/Updated: Yes - My Orders Last 24 Hours: My Active Orders 06/30/19 13:14 EEG Awake Drowsy [RC] ROUTINE 06/30/19 13:15 Lactated Ringers [Ringers, Lactated] 1,000 ml IV ASDIRECTED 06/30/19 16:41 LACTIC ACID [CHEM] Stat 06/30/19 Lunch Consistent Carbohydrate Diet [DIET] - Plan Plan:: Patient's brother also gave additional history which included that he became rigid during the episode of syncope and his eyes moved back and forth, like nystagmus. Patient does have an elevated lactic acid and sounds like he had at least some post ictal phase. Today patient is essentially back to normal and he is tolerating his diet. We have decreased his IV fluids and will repeat a lactic acid. Also we will order an EEG. Planned discharge tomorrow or when CSF studies are complete.
[2019-06-30] MEDS: Pantoprazole 40 MG Tab.CR PO SCH ×2 (09:23→21:24)
[2019-06-30] MEDS: Folic Acid 1 MG Tab PO SCH (09:23)
[2019-06-30] MEDS: Thiamine 100 MG Tab PO SCH (09:23)
[2019-06-30] MEDS: Nicotine 14 MG/24 Hr Patch TRDERM SCH (11:56)
[2019-06-30] MEDS: cefTRIAXone 2 GM in Sodium Chloride 0.9% 100 ML IV SCH ×2 (12:00→23:44)
--- NOTE | 2019-06-30 17:00 | PCM.SN ---
- Free Text/Narrative Note: Review of CSF demonstrates: Colorless, clear appearance, WBC 2, RBC 7, differential not done because of low WBCs, glucose is greater than 50% of the serum glucose at 86, total protein 37. Also reviewing serology for infectious agents they were all negative. This data suggests no neurological infection is present. I will stop dexamethasone at this time and discontinue antibiotics tomorrow if CSF culture continues to be negative.
[2019-06-30] MEDS ORDERED: Mirtazapine 15 MG Tab PO SCH (21:00)
[2019-06-30] MEDS: Aspirin 81 MG Tab.Chew PO SCH (21:21)
[2019-06-30] MEDS: Simvastatin 20 MG Tab PO SCH (21:21)
[2019-06-30] MEDS: Topiramate 25 MG Tab PO SCH (21:24)
[2019-07-01] MEDS: Insulin Lispro 100 Units/ML 3 ML Vial SUBCUT SCH ×2 (06:22→12:15)
[2019-07-01] MEDS: SODIUM CHLORIDE 0.9% IV SCH ×4 (06:48→16:52)
[2019-07-01] MEDS: Lactated Ringers 1,000 ML IV SCH (06:48)
[2019-07-01] MEDS: Vancomycin 2 GM in Sodium Chloride 0.9% 500 ML IV SCH (06:48)
[2019-07-01] MEDS: ACYCLOVIR IV SCH ×4 (06:48→16:52)
[2019-07-01] MEDS: Topiramate 25 MG Tab PO SCH (08:00)
[2019-07-01] MEDS: Thiamine 100 MG Tab PO SCH (08:00)
[2019-07-01] MEDS: Pantoprazole 40 MG Tab.CR PO SCH (08:00)
[2019-07-01] MEDS: Folic Acid 1 MG Tab PO SCH (08:00)
[2019-07-01] MEDS: Nicotine 14 MG/24 Hr Patch TRDERM SCH (11:47)
--- NOTE | 2019-07-01 12:59 | PCM.PN ---
<Royal Payne - Last Filed: 07/01/19 13:06> - General Info Date of Service: 07/01/19 Admission Dx/Problem (Free Text): Admission Diagnosis/Problem Admission Diagnosis/Problem Hypotension Subjective Update: Pt. feeling well today, no specific complaints. Pt and family are still anxious as to the cause of this event, and whether or not it will happen again. Pt informed that the etiology is still unclear. Pt advised to stop taking his tramadol and methocarbamol at the same time. Pt and family also note that pt's cognitive function is back to baseline, and he is no longer forgetting events that took place the previous day. Pt and family also wondering when he will be discharged. They were told that once we receive the results of the HSV serology that was ordered, he can be discharged Functional Status: Reports: Pain Controlled - Review of Systems General: Reports: No Symptoms HEENT: Reports: No Symptoms Pulmonary: Reports: No Symptoms Cardiovascular: Reports: No Symptoms Gastrointestinal: Reports: No Symptoms Genitourinary: Reports: No Symptoms Musculoskeletal: Reports: No Symptoms Skin: Reports: No Symptoms Neurological: Reports: No Symptoms Psychiatric: Reports: No Symptoms - Patient Data Vitals - Most Recent: Last Vital Signs Temp 97.9 F 07/01/19 11:45 Pulse 75 07/01/19 11:45 Resp 24 H 07/01/19 11:45 BP 143/87 H 07/01/19 11:45 Pulse Ox 93 L 07/01/19 11:45 Weight - Most Recent: 307 lb 1.6 oz I&O - Last 24 Hours: Intake & Output 06/30/19 07/01/19 07/01/19 22:59 06:59 14:59 Intake Total 3825 2207 240 Output Total 1175 Balance 2650 2207 240 Lab Results Last 24 Hours: Laboratory Results - last 24 hr 06/30/19 06/30/19 06/30/19 Range/Units 16:51 17:28 23:47 WBC (4.23-9.07) K/mm3 RBC (4.63-6.08) M/mm3 Hgb (13.7-17.5) gm/dl Hct (40.1-51.0) % MCV (79.0-92.2) fl MCH (25.7-32.2) pg MCHC (32.2-35.5) g/dl RDW Std Deviation (35.1-43.9) fL Plt Count (163-337) K/mm3 MPV (9.4-12.3) fl Neut % (Auto) (34.0-67.9) % Lymph % (Auto) (21.8-53.1) % Sutton % (Auto) (5.3-12.2) % Eos % (Auto) (0.8-7.0) Baso % (Auto) (0.1-1.2) % Neut # (Auto) (1.78-5.38) K/mm3 Lymph # (Auto) (1.32-3.57) K/mm3 Sutton # (Auto) (0.30-0.82) K/mm3 Eos # (Auto) (0.04-0.54) K/mm3 Baso # (Auto) (0.01-0.08) K/mm3 Manual Slide Review Sodium (136-145) mEq/L Potassium (3.5-5.1) mEq/L Chloride (98-107) mEq/L Carbon Dioxide (21-32) mEq/L Anion Gap (5-15) BUN (7-18) mg/dL Creatinine (0.7-1.3) mg/dL Est Cr Clr Drug Dosing mL/min Estimated GFR (MDRD) (>60) mL/min BUN/Creatinine Ratio (14-18) Glucose (74-106) mg/dL POC Glucose 189 H 265 H (70-105) mg/dL Lactic Acid 3.0 H (0.4-2.0) mmol/L Calcium (8.5-10.1) mg/dL Magnesium (1.8-2.4) mg/dl Vancomycin Trough (10.0-20.0) 07/01/19 07/01/19 07/01/19 Range/Units 04:30 04:30 04:30 WBC 13.52 H (4.23-9.07) K/mm3 RBC 4.53 L (4.63-6.08) M/mm3 Hgb 14.2 (13.7-17.5) gm/dl Hct 43.2 (40.1-51.0) % MCV 95.4 H (79.0-92.2) fl MCH 31.3 (25.7-32.2) pg MCHC 32.9 (32.2-35.5) g/dl RDW Std Deviation 47.2 H (35.1-43.9) fL Plt Count 193 (163-337) K/mm3 MPV 11.8 (9.4-12.3) fl Neut % (Auto) 83.0 H (34.0-67.9) % Lymph % (Auto) 8.9 L (21.8-53.1) % Sutton % (Auto) 7.5 (5.3-12.2) % Eos % (Auto) 0.1 L (0.8-7.0) Baso % (Auto) 0.1 (0.1-1.2) % Neut # (Auto) 11.21 H (1.78-5.38) K/mm3 Lymph # (Auto) 1.21 L (1.32-3.57) K/mm3 Sutton # (Auto) 1.02 H (0.30-0.82) K/mm3 Eos # (Auto) 0.02 L (0.04-0.54) K/mm3 Baso # (Auto) 0.01 (0.01-0.08) K/mm3 Manual Slide Review Abnormal smear Sodium 142 (136-145) mEq/L Potassium 3.9 (3.5-5.1) mEq/L Chloride 107 (98-107) mEq/L Carbon Dioxide 26 (21-32) mEq/L Anion Gap 12.9 (5-15) BUN 13 (7-18) mg/dL Creatinine 0.8 (0.7-1.3) mg/dL Est Cr Clr Drug Dosing 129.27 mL/min Estimated GFR (MDRD) > 60 (>60) mL/min BUN/Creatinine Ratio 16.3 (14-18) Glucose 125 H (74-106) mg/dL POC Glucose (70-105) mg/dL Lactic Acid (0.4-2.0) mmol/L Calcium 8.6 (8.5-10.1) mg/dL Magnesium 1.9 (1.8-2.4) mg/dl Vancomycin Trough 15.2 (10.0-20.0) 07/01/19 07/01/19 07/01/19 Range/Units 04:30 06:09 11:43 WBC (4.23-9.07) K/mm3 RBC (4.63-6.08) M/mm3 Hgb (13.7-17.5) gm/dl Hct (40.1-51.0) % MCV (79.0-92.2) fl MCH (25.7-32.2) pg MCHC (32.2-35.5) g/dl RDW Std Deviation (35.1-43.9) fL Plt Count (163-337) K/mm3 MPV (9.4-12.3) fl Neut % (Auto) (34.0-67.9) % Lymph % (Auto) (21.8-53.1) % Sutton % (Auto) (5.3-12.2) % Eos % (Auto) (0.8-7.0) Baso % (Auto) (0.1-1.2) % Neut # (Auto) (1.78-5.38) K/mm3 Lymph # (Auto) (1.32-3.57) K/mm3 Sutton # (Auto) (0.30-0.82) K/mm3 Eos # (Auto) (0.04-0.54) K/mm3 Baso # (Auto) (0.01-0.08) K/mm3 Manual Slide Review Sodium (136-145) mEq/L Potassium (3.5-5.1) mEq/L Chloride (98-107) mEq/L Carbon Dioxide (21-32) mEq/L Anion Gap (5-15) BUN (7-18) mg/dL Creatinine (0.7-1.3) mg/dL Est Cr Clr Drug Dosing mL/min Estimated GFR (MDRD) (>60) mL/min BUN/Creatinine Ratio (14-18) Glucose (74-106) mg/dL POC Glucose 112 H 118 H (70-105) mg/dL Lactic Acid 1.7 (0.4-2.0) mmol/L Calcium (8.5-10.1) mg/dL Magnesium (1.8-2.4) mg/dl Vancomycin Trough (10.0-20.0) Jerman Results Last 24 Hours: Microbiology 06/29/19 11:58 Aerobic Blood Culture - Preliminary Blood - Venous NO GROWTH AFTER 2 DAYS Anaerobic Blood Culture - Preliminary NO GROWTH AFTER 2 DAYS 06/29/19 11:45 Aerobic Blood Culture - Preliminary Blood - Venous - Lab Draw NO GROWTH AFTER 2 DAYS Anaerobic Blood Culture - Preliminary NO GROWTH AFTER 2 DAYS 06/28/19 22:00 Gram Stain - Final Cerebral Spinal Fluid CSF Culture - Preliminary NO GROWTH AFTER 3 DAYS Med Orders - Current: Current Medications Acetaminophen (Tylenol) 650 mg PO Q4H PRN PRN Reason: Pain (Mild 1-3)/fever Hydrocodone Bitart/Acetaminophen ([place] 325-5 Mg) 1 tab PO Q4H PRN PRN Reason: Pain (moderate 4-6) Albuterol/Ipratropium (Duoneb 3.0-0.5 Mg/3 Ml) 3 ml NEB Q4H PRN PRN Reason: Shortness Of Breath/wheezing Aspirin (Aspirin) 81 mg PO BEDTIME [facility] Last Admin: 06/30/19 21:21 Dose: 81 mg Bisacodyl (Dulcolax) 5 mg PO DAILY PRN PRN Reason: Constipation Chlordiazepoxide HCl (Librium) 25 mg PO Q8H PRN PRN Reason: Withdrawal Symptoms Clonidine HCl (Catapres) 0.1 mg PO Q4H PRN PRN Reason: Agitation Last Admin: 06/29/19 12:16 Dose: 0.1 mg Dextrose/Water (Dextrose 50% In Water) 50 ml IVPUSH ASDIRECTED PRN PRN Reason: Hypoglycemia Docusate Sodium (Colace) 100 mg PO BID PRN PRN Reason: Constipation Haloperidol Lactate (Haldol) 2 mg IM Q4H PRN PRN Reason: Agitation Hydromorphone HCl (Dilaudid) 0.25 mg IVPUSH Q2H PRN PRN Reason: Pain (severe 7-10) Promethazine HCl 6.25 mg/ (Sodium Chloride) 50.25 mls @ 100 mls/hr IV Q6H PRN PRN Reason: Nausea/Vomiting Acyclovir 730 mg/ Sodium (Chloride) 114.6 mls @ 95.5 mls/hr IV Q8H [facility] Last Admin: 07/01/19 10:00 Dose: 95.5 mls/hr Insulin Human Lispro (Humalog) 0 unit SUBCUT Q6HR [facility]; Protocol Last Admin: 07/01/19 12:15 Dose: Not Given Lorazepam (Ativan) 1 mg IV Q6H PRN PRN Reason: Anxiety Last Admin: 06/29/19 20:24 Dose: 1 mg Lorazepam (Ativan) 0 mg IVPUSH Q4H PRN; Protocol PRN Reason: Withdrawal Symptoms Lorazepam (Ativan) 2 mg IVPUSH Q4H PRN PRN Reason: Seizures Mirtazapine (Remeron) 15 mg PO BEDTIME [facility] Last Admin: 06/30/19 21:21 Dose: 15 mg Miscellaneous Information (Remove Patch) 1 ea TRDERM Q24H [facility] Last Admin: 07/01/19 11:48 Dose: 1 ea Nicotine (Habitrol) 14 mg TRDERM Q24H [facility] Last Admin: 07/01/19 11:47 Dose: 14 mg Ondansetron HCl (Zofran) 4 mg IV Q6H PRN PRN Reason: Nausea/Vomiting Pantoprazole Sodium (Protonix) 40 mg PO BID [facility] Last Admin: 07/01/19 08:00 Dose: 40 mg Polyethylene Glycol (Miralax) 17 gm PO DAILY PRN PRN Reason: Constipation Senna/Docusate Sodium (Senna Plus) 1 tab PO BID PRN PRN Reason: Constipation Simvastatin (Zocor) 20 mg PO BEDTIME [facility] Last Admin: 06/30/19 21:21 Dose: 20 mg Sodium Chloride (Saline Flush) 10 ml FLUSH ASDIRECTED PRN PRN Reason: Keep Vein Open Last Admin: 06/28/19 13:25 Dose: 10 ml Thiamine HCl (Vitamin B-1) 100 mg PO DAILY [facility] Last Admin: 07/01/19 08:00 Dose: 100 mg Topiramate (Topamax) 25 mg PO BID [facility] Last Admin: 07/01/19 08:00 Dose: 25 mg Discontinued Medications Dexamethasone (Dexamethasone) 20 mg IVPUSH Q6H [facility] Last Admin: 06/29/19 02:04 Dose: 20 mg Dexamethasone (Dexamethasone) 20 mg IVPUSH Q6H [facility] Last Admin: 06/30/19 13:32 Dose: 20 mg Folic Acid (Folic Acid) 1 mg SUBCUT ONETIME ONE Stop: 06/28/19 18:56 Last Admin: 06/28/19 20:22 Dose: 1 mg Folic Acid (Folic Acid) 1 mg PO DAILY [facility] Stop: 07/01/19 09:01 Last Admin: 07/01/19 08:00 Dose: 1 mg Gadobenate Dimeglumine (Multihance) 20 ml IVPUSH ONETIME ONE Stop: 06/29/19 09:16 Last Admin: 06/29/19 09:58 Dose: 20 ml Sodium Chloride (Normal Saline) 1,000 mls @ 1,000 mls/hr IV .BOLUS [facility]ONIEL Last Admin: 06/28/19 13:23 Dose: 1,000 mls/hr Lactated Ringer's (Ringers, Lactated) 1,000 mls @ 1,000 mls/hr IV .BOLUS ONE Stop: 06/28/19 17:05 Last Admin: 06/28/19 16:18 Dose: 1,000 mls/hr Lactated Ringer's (Ringers, Lactated) 1,000 mls @ 150 mls/hr IV ASDIRECTED [facility] Last Admin: 06/28/19 17:31 Dose: 150 mls/hr Dextrose/Sodium Chloride (Dextrose 5%-Normal Saline) 1,000 mls @ 125 mls/hr IV ASDIRECTED [facility] Last Admin: 06/29/19 04:11 Dose: 125 mls/hr Thiamine HCl 100 mg/ Sodium (Chloride) 51 mls @ 100 mls/hr IV DAILY [facility] Ceftriaxone Sodium 2 gm/ (Sodium Chloride) 100 mls @ 200 mls/hr IV Q24H [facility] Last Admin: 06/28/19 22:44 Dose: Not Given Vancomycin HCl 1,000 mg/ (Sodium Chloride) 250 mls @ 166.667 mls/hr IV Q12H [facility] Last Admin: 06/28/19 19:55 Dose: Not Given Vancomycin HCl 1.5 gm/ Sodium (Chloride) 500 mls @ 333.333 mls/hr IV Q8H [facility] Thiamine HCl 100 mg/ Sodium (Chloride) 101 mls @ 198.039 mls/hr IV ONETIME ONE Stop: 06/28/19 20:30 Last Admin: 06/28/19 20:28 Dose: 198.039 mls/hr Acyclovir 1,000 mg/ Sodium (Chloride) 120 mls @ 100 mls/hr IV Q8H [facility] Last Admin: 06/28/19 22:44 Dose: Not Given Vancomycin HCl 2 gm/ Sodium (Chloride) 500 mls @ 250 mls/hr IV ONETIME ONE Stop: 06/29/19 00:29 Last Admin: 06/28/19 22:23 Dose: 250 mls/hr Vancomycin HCl 1.5 gm/ Sodium (Chloride) 500 mls @ 333.333 mls/hr IV Q8H [facility] Last Admin: 06/29/19 14:41 Dose: 333.333 mls/hr Acyclovir 1,000 mg/ Sodium (Chloride) 120 mls @ 100 mls/hr IV Q8H [facility] Ceftriaxone Sodium 2 gm/ (Sodium Chloride) 100 mls @ 200 mls/hr IV Q24H [facility] Acyclovir 1,000 mg/ Sodium (Chloride) 120 mls @ 100 mls/hr IV Q8H [facility] Last Admin: 06/29/19 06:00 Dose: 100 mls/hr Ceftriaxone Sodium 2 gm/ (Sodium Chloride) 100 mls @ 200 mls/hr IV Q24H [facility] Last Admin: 06/28/19 23:31 Dose: 200 mls/hr Magnesium Sulfate 2 gm/ Premix 50 mls @ 25 mls/hr IV ONETIME ONE Stop: 06/29/19 10:48 Last Admin: 06/29/19 10:18 Dose: 25 mls/hr Ceftriaxone Sodium 2 gm/ (Sodium Chloride) 100 mls @ 200 mls/hr IV Q12H [facility] Last Admin: 06/30/19 23:44 Dose: 200 mls/hr Acyclovir 730 mg/ Sodium (Chloride) 114.6 mls @ 95.5 mls/hr IV Q8H [facility] Last Admin: 07/01/19 08:08 Dose: Not Given Lactated Ringer's (Ringers, Lactated) 1,000 mls @ 250 mls/hr IV ASDIRECTED [facility] Last Admin: 06/30/19 09:18 Dose: 250 mls/hr Lactated Ringer's (Ringers, Lactated) 500 mls @ 999 mls/hr IV .BOLUS ONE Stop: 06/29/19 13:17 Last Admin: 06/29/19 12:53 Dose: 999 mls/hr Lactated Ringer's (Ringers, Lactated) Confirm Administered Dose 1,000 mls @ as directed .ROUTE .STK-MED ONE Stop: 06/29/19 12:51 Last Admin: 06/29/19 13:05 Dose: Not Given Vancomycin HCl 2 gm/ Sodium (Chloride) 500 mls @ 333.333 mls/hr IV Q8H [facility] Last Admin: 06/29/19 22:23 Dose: Not Given Vancomycin HCl 2 gm/ Sodium (Chloride) 500 mls @ 333.333 mls/hr IV Q8H [facility] Last Admin: 07/01/19 06:48 Dose: 333.333 mls/hr Lactated Ringer's (Ringers, Lactated) 1,000 mls @ 999 mls/hr IV .BOLUS ONE Stop: 06/30/19 00:28 Last Admin: 06/29/19 23:42 Dose: 999 mls/hr Magnesium Sulfate 2 gm/ Premix 50 mls @ 25 mls/hr IV ONETIME ONE Stop: 06/30/19 10:59 Last Admin: 06/30/19 09:20 Dose: 25 mls/hr Lactated Ringer's (Ringers, Lactated) 1,000 mls @ 125 mls/hr IV ASDIRECTED [facility] Last Admin: 07/01/19 06:48 Dose: 125 mls/hr Insulin Human Lispro (Humalog) 0 unit SUBCUT Q6H [facility]; Protocol Last Admin: 06/29/19 05:51 Dose: 2 units Lorazepam (Ativan) 3 mg IVPUSH ONETIME ONE Stop: 06/28/19 18:51 Last Admin: 06/28/19 19:08 Dose: 3 mg Lorazepam (Ativan) 2 mg IVPUSH ONETIME ONE Stop: 06/29/19 08:58 Last Admin: 06/29/19 10:23 Dose: 2 mg Multivitamins (Thera) 1 each PO ONETIME ONE Stop: 06/28/19 18:56 Last Admin: 06/28/19 22:39 Dose: Not Given Pantoprazole Sodium (Protonix Iv) 40 mg IV Q12HR [facility] Last Admin: 06/29/19 08:24 Dose: 40 mg Sodium Chloride (Saline Flush) 10 ml FLUSH ONETIME PRN PRN Reason: Keep Vein Open Stop: 06/29/19 18:00 Last Admin: 06/29/19 09:59 Dose: 10 ml Sodium Chloride (Normal Saline) 30 ml IV ONETIME ONE Stop: 06/29/19 09:16 Last Admin: 06/29/19 09:59 Dose: 30 ml Thiamine HCl (Vitamin B-1) 100 mg IVPUSH DAILY O[facility]ONIEL Last Admin: 06/29/19 08:22 Dose: 100 mg Vancomycin HCl (Pharmacy To Dose - Vancomycin) 1 dose .XX ASDIRECTED PRN PRN Reason: RX TO DOSE VANCOMYCIN - Exam General: Alert, Oriented, No Acute Distress HEENT: Pupils Equal, Pupils Reactive, EOMI, Mucous Membr. Moist/[place] Neck: Supple, Trachea Midline, No JVD, No Thyromegaly Lungs: Clear to Auscultation, Normal Respiratory Effort. No: Crackles, Rales, Rhonchi, Rub, Wheezing Cardiovascular: Regular Rate, Regular Rhythm, No Murmurs. No: Gallops, Rubs GI/Abdominal Exam: Normal Bowel Sounds, Soft, Non-Tender, No Organomegaly, No Distention, No Mass (Male) Exam: Deferred Back Exam: Normal Inspection, Full Range of Motion. No: CVA Tenderness (L), CVA Tenderness (R) Extremities: Normal Inspection, Normal Range of Motion, Non-Tender, No Pedal Edema, Normal Capillary Refill. No: Joint Swelling Skin: Warm, Dry, Intact Neurological: No New Focal Deficit, Normal Gait, Normal Speech, Normal Tone Psy/Mental Status: Alert, Normal Affect, Normal Mood - Problem List Review Problem List Initiated/Reviewed/Updated: Yes - Plan Plan:: Assessment Acute: Altered Mental Status 2/2 toxic metabolic encephalopathy - DDx remains broad - cannot rule out stroke, TIA, meningitis, encephalitis at this time--> CT, MRI negative --> EEG negative - LP negative at this time. 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 Arrieta consulted, believes the patient is withdrawing Leukocytosis - WBC 11.73 -->12.65 --> 13.52 - Possible stress response - Continue to monitor - Increase due to steroid Hyperglycemia - BG 144 --> 198 this am - Pt is DM type 1 - continue home insulin regimen Hypothyroidism - TSH elevated at 5.026 Plan: D/C IV antibiotics Start remeron and topamax per Dr. Arrieta Await lab results for possible infectious etiology Continue home insulin regimen Normal diet Increase activity Full Code LOS pending results of cultures Prognosis - guarded good Additional orders as above Etiology of this incident remains unclear. <FelipeDavidalesia Vaz III - Last Filed: 07/01/19 18:24> - Patient Data Vitals - Most Recent: Last Vital Signs Temp 97.9 F 07/01/19 11:45 Pulse 75 07/01/19 11:45 Resp 24 H 07/01/19 11:45 BP 143/87 H 07/01/19 11:45 Pulse Ox 93 L 07/01/19 11:45 I&O - Last 24 Hours: Intake & Output 07/01/19 07/01/19 07/01/19 06:59 14:59 22:59 Intake Total 2207 240 2227 Output Total 2 Balance 2207 240 2225 Lab Results Last 24 Hours: Laboratory Results - last 24 hr 06/30/19 07/01/19 07/01/19 Range/Units 23:47 04:30 04:30 WBC 13.52 H (4.23-9.07) K/mm3 RBC 4.53 L (4.63-6.08) M/mm3 Hgb 14.2 (13.7-17.5) gm/dl Hct 43.2 (40.1-51.0) % MCV 95.4 H (79.0-92.2) fl MCH 31.3 (25.7-32.2) pg MCHC 32.9 (32.2-35.5) g/dl RDW Std Deviation 47.2 H (35.1-43.9) fL Plt Count 193 (163-337) K/mm3 MPV 11.8 (9.4-12.3) fl Neut % (Auto) 83.0 H (34.0-67.9) % Lymph % (Auto) 8.9 L (21.8-53.1) % Sutton % (Auto) 7.5 (5.3-12.2) % Eos % (Auto) 0.1 L (0.8-7.0) Baso % (Auto) 0.1 (0.1-1.2) % Neut # (Auto) 11.21 H (1.78-5.38) K/mm3 Lymph # (Auto) 1.21 L (1.32-3.57) K/mm3 Sutton # (Auto) 1.02 H (0.30-0.82) K/mm3 Eos # (Auto) 0.02 L (0.04-0.54) K/mm3 Baso # (Auto) 0.01 (0.01-0.08) K/mm3 Manual Slide Review Abnormal smear Sodium 142 (136-145) mEq/L Potassium 3.9 (3.5-5.1) mEq/L Chloride 107 (98-107) mEq/L Carbon Dioxide 26 (21-32) mEq/L Anion Gap 12.9 (5-15) BUN 13 (7-18) mg/dL Creatinine 0.8 (0.7-1.3) mg/dL Est Cr Clr Drug Dosing 129.27 mL/min Estimated GFR (MDRD) > 60 (>60) mL/min BUN/Creatinine Ratio 16.3 (14-18) Glucose 125 H (74-106) mg/dL POC Glucose 265 H (70-105) mg/dL Lactic Acid (0.4-2.0) mmol/L Calcium 8.6 (8.5-10.1) mg/dL Magnesium 1.9 (1.8-2.4) mg/dl Vancomycin Trough (10.0-20.0) 07/01/19 07/01/19 07/01/19 Range/Units 04:30 04:30 06:09 WBC (4.23-9.07) K/mm3 RBC (4.63-6.08) M/mm3 Hgb (13.7-17.5) gm/dl Hct (40.1-51.0) % MCV (79.0-92.2) fl MCH (25.7-32.2) pg MCHC (32.2-35.5) g/dl RDW Std Deviation (35.1-43.9) fL Plt Count (163-337) K/mm3 MPV (9.4-12.3) fl Neut % (Auto) (34.0-67.9) % Lymph % (Auto) (21.8-53.1) % Sutton % (Auto) (5.3-12.2) % Eos % (Auto) (0.8-7.0) Baso % (Auto) (0.1-1.2) % Neut # (Auto) (1.78-5.38) K/mm3 Lymph # (Auto) (1.32-3.57) K/mm3 Sutton # (Auto) (0.30-0.82) K/mm3 Eos # (Auto) (0.04-0.54) K/mm3 Baso # (Auto) (0.01-0.08) K/mm3 Manual Slide Review Sodium (136-145) mEq/L Potassium (3.5-5.1) mEq/L Chloride (98-107) mEq/L Carbon Dioxide (21-32) mEq/L Anion Gap (5-15) BUN (7-18) mg/dL Creatinine (0.7-1.3) mg/dL Est Cr Clr Drug Dosing mL/min Estimated GFR (MDRD) (>60) mL/min BUN/Creatinine Ratio (14-18) Glucose (74-106) mg/dL POC Glucose 112 H (70-105) mg/dL Lactic Acid 1.7 (0.4-2.0) mmol/L Calcium (8.5-10.1) mg/dL Magnesium (1.8-2.4) mg/dl Vancomycin Trough 15.2 (10.0-20.0) 07/01/19 Range/Units 11:43 WBC (4.23-9.07) K/mm3 RBC (4.63-6.08) M/mm3 Hgb (13.7-17.5) gm/dl Hct (40.1-51.0) % MCV (79.0-92.2) fl MCH (25.7-32.2) pg MCHC (32.2-35.5) g/dl RDW Std Deviation (35.1-43.9) fL Plt Count (163-337) K/mm3 MPV (9.4-12.3) fl Neut % (Auto) (34.0-67.9) % Lymph % (Auto) (21.8-53.1) % [place] % (Auto) (5.3-12.2) % Eos % (Auto) (0.8-7.0) Baso % (Auto) (0.1-1.2) % Neut # (Auto) (1.78-5.38) K/mm3 Lymph # (Auto) (1.32-3.57) K/mm3 Sutton # (Auto) (0.30-0.82) K/mm3 Eos # (Auto) (0.04-0.54) K/mm3 Baso # (Auto) (0.01-0.08) K/mm3 Manual Slide Review Sodium (136-145) mEq/L Potassium (3.5-5.1) mEq/L Chloride (98-107) mEq/L Carbon Dioxide (21-32) mEq/L Anion Gap (5-15) BUN (7-18) mg/dL Creatinine (0.7-1.3) mg/dL Est Cr Clr Drug Dosing mL/min Estimated GFR (MDRD) (>60) mL/min BUN/Creatinine Ratio (14-18) Glucose (74-106) mg/dL POC Glucose 118 H (70-105) mg/dL Lactic Acid (0.4-2.0) mmol/L Calcium (8.5-10.1) mg/dL Magnesium (1.8-2.4) mg/dl Vancomycin Trough (10.0-20.0) Jerman Results Last 24 Hours: Microbiology 06/29/19 11:58 Aerobic Blood Culture - Preliminary Blood - Venous NO GROWTH AFTER 2 DAYS Anaerobic Blood Culture - Preliminary NO GROWTH AFTER 2 DAYS 06/29/19 11:45 Aerobic Blood Culture - Preliminary Blood - Venous - Lab Draw NO GROWTH AFTER 2 DAYS Anaerobic Blood Culture - Preliminary NO GROWTH AFTER 2 DAYS 06/28/19 22:00 Gram Stain - Final Cerebral Spinal Fluid CSF Culture - Preliminary NO GROWTH AFTER 3 DAYS Med Orders - Current: Current Medications Discontinued Medications Acetaminophen (Tylenol) 650 mg PO Q4H PRN PRN Reason: Pain (Mild 1-3)/fever Hydrocodone Bitart/Acetaminophen ([place] 325-5 Mg) 1 tab PO Q4H PRN PRN Reason: Pain (moderate 4-6) Albuterol/Ipratropium (Duoneb 3.0-0.5 Mg/3 Ml) 3 ml NEB Q4H PRN PRN Reason: Shortness Of Breath/wheezing Aspirin (Aspirin) 81 mg PO BEDTIME [facility] Last Admin: 06/30/19 21:21 Dose: 81 mg Bisacodyl (Dulcolax) 5 mg PO DAILY PRN PRN Reason: Constipation Chlordiazepoxide HCl (Librium) 25 mg PO Q8H PRN PRN Reason: Withdrawal Symptoms Clonidine HCl (Catapres) 0.1 mg PO Q4H PRN PRN Reason: Agitation Last Admin: 06/29/19 12:16 Dose: 0.1 mg Dexamethasone (Dexamethasone) 20 mg IVPUSH Q6H [facility] Last Admin: 06/29/19 02:04 Dose: 20 mg Dexamethasone (Dexamethasone) 20 mg IVPUSH Q6H [facility] Last Admin: 06/30/19 13:32 Dose: 20 mg Dextrose/Water (Dextrose 50% In Water) 50 ml IVPUSH ASDIRECTED PRN PRN Reason: Hypoglycemia Docusate Sodium (Colace) 100 mg PO BID PRN PRN Reason: Constipation Folic Acid (Folic Acid) 1 mg SUBCUT ONETIME ONE Stop: 06/28/19 18:56 Last Admin: 06/28/19 20:22 Dose: 1 mg Folic Acid (Folic Acid) 1 mg PO DAILY [facility] Stop: 07/01/19 09:01 Last Admin: 07/01/19 08:00 Dose: 1 mg Gadobenate Dimeglumine (Multihance) 20 ml IVPUSH ONETIME ONE Stop: 06/29/19 09:16 Last Admin: 06/29/19 09:58 Dose: 20 ml Haloperidol Lactate (Haldol) 2 mg IM Q4H PRN PRN Reason: Agitation Hydromorphone HCl (Dilaudid) 0.25 mg IVPUSH Q2H PRN PRN Reason: Pain (severe 7-10) Sodium Chloride (Normal Saline) 1,000 mls @ 1,000 mls/hr IV .BOLUS [facility] Last Admin: 06/28/19 13:23 Dose: 1,000 mls/hr Lactated Ringer's (Ringers, Lactated) 1,000 mls @ 1,000 mls/hr IV .BOLUS ONE Stop: 06/28/19 17:05 Last Admin: 06/28/19 16:18 Dose: 1,000 mls/hr Lactated Ringer's (Ringers, Lactated) 1,000 mls @ 150 mls/hr IV ASDIRECTED [facility] Last Admin: 06/28/19 17:31 Dose: 150 mls/hr Promethazine HCl 6.25 mg/ (Sodium Chloride) 50.25 mls @ 100 mls/hr IV Q6H PRN PRN Reason: Nausea/Vomiting Dextrose/Sodium Chloride (Dextrose 5%-Normal Saline) 1,000 mls @ 125 mls/hr IV ASDIRECTED [facility] Last Admin: 06/29/19 04:11 Dose: 125 mls/hr Thiamine HCl 100 mg/ Sodium (Chloride) 51 mls @ 100 mls/hr IV DAILY [facility] Ceftriaxone Sodium 2 gm/ (Sodium Chloride) 100 mls @ 200 mls/hr IV Q24H [facility] Last Admin: 06/28/19 22:44 Dose: Not Given Vancomycin HCl 1,000 mg/ (Sodium Chloride) 250 mls @ 166.667 mls/hr IV Q12H [facility] Last Admin: 06/28/19 19:55 Dose: Not Given Vancomycin HCl 1.5 gm/ Sodium (Chloride) 500 mls @ 333.333 mls/hr IV Q8H [facility] Thiamine HCl 100 mg/ Sodium (Chloride) 101 mls @ 198.039 mls/hr IV ONETIME ONE Stop: 06/28/19 20:30 Last Admin: 06/28/19 20:28 Dose: 198.039 mls/hr Acyclovir 1,000 mg/ Sodium (Chloride) 120 mls @ 100 mls/hr IV Q8H [facility] Last Admin: 06/28/19 22:44 Dose: Not Given Vancomycin HCl 2 gm/ Sodium (Chloride) 500 mls @ 250 mls/hr IV ONETIME ONE Stop: 06/29/19 00:29 Last Admin: 06/28/19 22:23 Dose: 250 mls/hr Vancomycin HCl 1.5 gm/ Sodium (Chloride) 500 mls @ 333.333 mls/hr IV Q8H [facility] Last Admin: 06/29/19 14:41 Dose: 333.333 mls/hr Acyclovir 1,000 mg/ Sodium (Chloride) 120 mls @ 100 mls/hr IV Q8H [facility] Ceftriaxone Sodium 2 gm/ (Sodium Chloride) 100 mls @ 200 mls/hr IV Q24H [facility] Acyclovir 1,000 mg/ Sodium (Chloride) 120 mls @ 100 mls/hr IV Q8H [facility] Last Admin: 06/29/19 06:00 Dose: 100 mls/hr Ceftriaxone Sodium 2 gm/ (Sodium Chloride) 100 mls @ 200 mls/hr IV Q24H [facility] Last Admin: 06/28/19 23:31 Dose: 200 mls/hr Magnesium Sulfate 2 gm/ Premix 50 mls @ 25 mls/hr IV ONETIME ONE Stop: 06/29/19 10:48 Last Admin: 06/29/19 10:18 Dose: 25 mls/hr Ceftriaxone Sodium 2 gm/ (Sodium Chloride) 100 mls @ 200 mls/hr IV Q12H [facility] Last Admin: 06/30/19 23:44 Dose: 200 mls/hr Acyclovir 730 mg/ Sodium (Chloride) 114.6 mls @ 95.5 mls/hr IV Q8H [facility] Last Admin: 07/01/19 08:08 Dose: Not Given Lactated Ringer's (Ringers, Lactated) 1,000 mls @ 250 mls/hr IV ASDIRECTED [facility] Last Admin: 06/30/19 09:18 Dose: 250 mls/hr Lactated Ringer's (Ringers, Lactated) 500 mls @ 999 mls/hr IV .BOLUS ONE Stop: 06/29/19 13:17 Last Admin: 06/29/19 12:53 Dose: 999 mls/hr Lactated Ringer's (Ringers, Lactated) Confirm Administered Dose 1,000 mls @ as directed .ROUTE .STK-MED ONE Stop: 06/29/19 12:51 Last Admin: 06/29/19 13:05 Dose: Not Given Vancomycin HCl 2 gm/ Sodium (Chloride) 500 mls @ 333.333 mls/hr IV Q8H [facility] Last Admin: 06/29/19 22:23 Dose: Not Given Vancomycin HCl 2 gm/ Sodium (Chloride) 500 mls @ 333.333 mls/hr IV Q8H [facility] Last Admin: 07/01/19 06:48 Dose: 333.333 mls/hr Lactated Ringer's (Ringers, Lactated) 1,000 mls @ 999 mls/hr IV .BOLUS ONE Stop: 06/30/19 00:28 Last Admin: 06/29/19 23:42 Dose: 999 mls/hr Magnesium Sulfate 2 gm/ Premix 50 mls @ 25 mls/hr IV ONETIME ONE Stop: 06/30/19 10:59 Last Admin: 06/30/19 09:20 Dose: 25 mls/hr Lactated Ringer's (Ringers, Lactated) 1,000 mls @ 125 mls/hr IV ASDIRECTED [facility] Last Admin: 07/01/19 06:48 Dose: 125 mls/hr Acyclovir 730 mg/ Sodium (Chloride) 114.6 mls @ 95.5 mls/hr IV Q8H [facility] Last Admin: 07/01/19 16:52 Dose: Not Given Insulin Human Lispro (Humalog) 0 unit SUBCUT Q6H [facility]; Protocol Last Admin: 06/29/19 05:51 Dose: 2 units Insulin Human Lispro (Humalog) 0 unit SUBCUT Q6HR [facility]; Protocol Last Admin: 07/01/19 12:15 Dose: Not Given Lorazepam (Ativan) 3 mg IVPUSH ONETIME ONE Stop: 06/28/19 18:51 Last Admin: 06/28/19 19:08 Dose: 3 mg Lorazepam (Ativan) 1 mg IV Q6H PRN PRN Reason: Anxiety Last Admin: 06/29/19 20:24 Dose: 1 mg Lorazepam (Ativan) 0 mg IVPUSH Q4H PRN; Protocol PRN Reason: Withdrawal Symptoms Lorazepam (Ativan) 2 mg IVPUSH ONETIME ONE Stop: 06/29/19 08:58 Last Admin: 06/29/19 10:23 Dose: 2 mg Lorazepam (Ativan) 2 mg IVPUSH Q4H PRN PRN Reason: Seizures Mirtazapine (Remeron) 15 mg PO BEDTIME [facility] Last Admin: 06/30/19 21:21 Dose: 15 mg Miscellaneous Information (Remove Patch) 1 ea TRDERM Q24H [facility] Last Admin: 07/01/19 11:48 Dose: 1 ea Multivitamins (Thera) 1 each PO ONETIME ONE Stop: 06/28/19 18:56 Last Admin: 06/28/19 22:39 Dose: Not Given Nicotine (Habitrol) 14 mg TRDERM Q24H [facility] Last Admin: 07/01/19 11:47 Dose: 14 mg Ondansetron HCl (Zofran) 4 mg IV Q6H PRN PRN Reason: Nausea/Vomiting Pantoprazole Sodium (Protonix Iv) 40 mg IV Q12HR [facility] Last Admin: 06/29/19 08:24 Dose: 40 mg Pantoprazole Sodium (Protonix) 40 mg PO BID [facility] Last Admin: 07/01/19 08:00 Dose: 40 mg Polyethylene Glycol (Miralax) 17 gm PO DAILY PRN PRN Reason: Constipation Senna/Docusate Sodium (Senna Plus) 1 tab PO BID PRN PRN Reason: Constipation Simvastatin (Zocor) 20 mg PO BEDTIME [facility] Last Admin: 06/30/19 21:21 Dose: 20 mg Sodium Chloride (Saline Flush) 10 ml FLUSH ASDIRECTED PRN PRN Reason: Keep Vein Open Last Admin: 06/28/19 13:25 Dose: 10 ml Sodium Chloride (Saline Flush) 10 ml FLUSH ONETIME PRN PRN Reason: Keep Vein Open Stop: 06/29/19 18:00 Last Admin: 06/29/19 09:59 Dose: 10 ml Sodium Chloride (Normal Saline) 30 ml IV ONETIME ONE Stop: 06/29/19 09:16 Last Admin: 06/29/19 09:59 Dose: 30 ml Thiamine HCl (Vitamin B-1) 100 mg IVPUSH DAILY [facility] Last Admin: 06/29/19 08:22 Dose: 100 mg Thiamine HCl (Vitamin B-1) 100 mg PO DAILY [facility] Last Admin: 07/01/19 08:00 Dose: 100 mg Topiramate (Topamax) 25 mg PO BID [facility] Last Admin: 07/01/19 08:00 Dose: 25 mg Vancomycin HCl (Pharmacy To Dose - Vancomycin) 1 dose .XX ASDIRECTED PRN PRN Reason: RX TO DOSE VANCOMYCIN - Problem List Review Problem List Initiated/Reviewed/Updated: Yes - My Orders Last 24 Hours: My Active Orders 07/01/19 09:35 Blood Glucose Check, Bedside [RC] QIDACANDBED 07/01/19 12:10 Convert IV to Saline Lock [OM.PC] Routine 07/01/19 16:24 Ready for Discharge [RC] PER UNIT ROUTINE - Plan Plan:: Patient was seen, examined, and evaluated personally and I agree with the above findings, assessment, and plan.
--- NOTE | 2019-07-01 18:24 | PCM.DCSUM1 ---
Discharge Summary - Hospital Course HPI Initial Comments: Pt presents to med/surg upon admission from ED due to altered mental status. Pt was at work yesterday when he suddenly became weak, and laid on the ground and lost consciousness. Pt states he did not feel dizzy or lightheaded before this episode. Per his brother, pt was salivating and immobile. When pt came back to consciousness was completely obtunded. Pt's brother was concerned about a stroke and called the ambulance immediately. Pt denies illness preceding the event. Pt was obtunded and unable to give a history upon his admission to the hospital. History was given by his brother, who knows him very well and visits him multiple times every day. Pt's brother states that pt has been experiencing extreme life stressors lately due to a divorce with his . The brother states that the pt has been depressed, but has not had suicidal ideation. Apparently the ex- has accused pt of alcohol abuse, claiming he drinks one liter of alcohol per day. Pt's brother outright denies this claim, as he visits his brother 3 times every day, and has made sure there is no alcohol in the house. The brother also states that the pt has had gastric bypass surgery, so drinking this much alcohol would be very difficult for him. The brother denies any possibility that the pt may have overdosed on one of his prescription medications. Per the pt's brother, as well as nursing staff, pt was completely disoriented upon admission and was unable to cooperate with cares or answer questions appropriately. Family was very concerned. Pt was alert, oriented, and answering questions appropriately during the interview this morning. Pt had labs drawn in ER showing WBC 11.73, HCT 51.6, Neutrophils 8.78, anion gap 16.5, glucose 144, TSH 5.026. UA and tox screen negative. No acute changes on head CT. Pt had a hypotensive episode in the ED that responded to fluid bolus. EKG shows nothing acute. Diagnosis: Stroke: No - Discharge Data Discharge Date: 07/01/19 Discharge Disposition: Home, Self-Care 01 Condition: Good - Referral to Home Health Primary Care Physician: PCP Unknown - Patient Summary/Data Consults: Consultations 06/28/19 18:10 Consult to Case Management/Calender Worker Helper [CONS] Routine Consult to Physician [CONS] Routine Consult to Spiritual Care [CONS] Routine OT Evaluation and Treatment [CONS] Routine PT Evaluation and Treatment [CONS] Routine Labs Pending at D/C: CSF serology Hospital Course: patient was placed on IV antibiotics, steroids, and acyclovir. CSF was negative as below and viral serology was negative. CSF fluid serology is still pending. Patient completely recovered over a couple of days and no formal cause was obtained. He had an EEG that was negative. He was seen by Dr. Arrieta and patient had some of his medications adjusted. patient's episode of altered mental status is possibly due to high levels of anxiety and stress, tramadol, methocarbamol, in combination with his other antidepressant and anxiety medication. MRA Neck w/ contrast report read as no abnormality is identified. MRA Head w/o contrast report read as suboptimal due to motion, no gross findings of stenosis or occlusion. Brain MRI report read as no abnormality is identified. CSF: Colorless, clear appearance, WBC 2, RBC 7, differential not done because of low WBCs, glucose is greater than 50% of the serum glucose at 86, total protein 37. Also reviewing serology for infectious agents they were all negative. This data suggests no neurological infection is present. I will stop dexamethasone at this time and discontinue antibiotics tomorrow if CSF culture continues to be negative. - Patient Instructions Diet: Diabetic Diet Driving: May Drive Today Showering/Bathing: May Shower Other/Special Instructions: Follow up with PCP in 1 week. - Discharge Plan *PRESCRIPTION DRUG MONITORING PROGRAM REVIEWED*: No *COPY OF PRESCRIPTION DRUG MONITORING REPORT IN PATIENT NADJA: No Prescriptions/Med Rec: Nicotine [Habitrol] 14 mg TRDERM Q24H #30 patch Thiamine [Vitamin B-1] 100 mg PO DAILY #30 tablet Home Medications: Home Meds DULoxetine HCl [Cymbalta] 30 mg PO DAILY 06/29/19 [History] DULoxetine HCl [Duloxetine HCl] 60 mg PO DAILY 06/29/19 [History] Gabapentin [Neurontin] 600 mg PO BEDTIME 06/29/19 [History] Methocarbamol 500 mg PO QID PRN 06/29/19 [History] buPROPion [buPROPion XL] 150 mg PO DAILY 06/29/19 [History] metFORMIN HCl [Metformin HCl ER] 500 mg PO DAILY 06/29/19 [History] traMADol [Ultram] 50 mg PO Q4H PRN 06/29/19 [History] traZODone HCl [Trazodone HCl] 100 mg PO BEDTIME 06/29/19 [History] Nicotine [Habitrol] 14 mg TRDERM Q24H #30 patch 07/01/19 [Rx] Thiamine [Vitamin B-1] 100 mg PO DAILY #30 tablet 07/01/19 [Rx] Oxygen Therapy Mode: Room Air Patient Handouts: Steps to Quit Smoking, Hypotension, Syncope Forms: ED Department Discharge Referrals: Sharon Wei NP [ED Midlevel Provider] - 07/08/19 9:00 am (Please establish a primary care provider and follow-up on ThursdayJuly 08 at 0900. ) - Discharge Summary/Plan Comment DC Time >30 min.: Yes Discharge Summary/Plan Comment: patient did well during his hospitalization and was at baseline at discharge. There is no explanation for his prolonged episode of altered mental status. CSF serology is still pending but cultures have been negative and analysis of his CSF fluid was unremarkable. If he ever has any other episodes like this again he should be seen by neurology. I did juvenile counselor him to not take tramadol and methocarbamol together. Follow-up with his primary care provider. - General Info Date of Service: 07/01/19 Admission Dx/Problem (Free Text: Admission Diagnosis/Problem Admission Diagnosis/Problem Hypotension Functional Status: Reports: Pain Controlled - Review of Systems General: Reports: No Symptoms HEENT: Reports: No Symptoms Pulmonary: Reports: No Symptoms Cardiovascular: Reports: No Symptoms Gastrointestinal: Reports: No Symptoms Musculoskeletal: Reports: No Symptoms Neurological: Reports: No Symptoms Psychiatric: Reports: No Symptoms - Patient Data Vitals - Most Recent: Last Vital Signs Temp 97.9 F 07/01/19 11:45 Pulse 75 07/01/19 11:45 Resp 24 H 07/01/19 11:45 BP 143/87 H 07/01/19 11:45 Pulse Ox 93 L 07/01/19 11:45 Weight - Most Recent: 307 lb 1.6 oz I&O - Last 24 hours: Intake & Output 07/01/19 07/01/19 07/01/19 06:59 14:59 22:59 Intake Total 2207 240 2227 Output Total 2 Balance 2207 240 2225 Lab Results - Last 24 hrs: Laboratory Results - last 24 hr 09/07/01/19 07/01/19 Range/Units 23:47 04:30 04:30 WBC 13.52 H (4.23-9.07) K/mm3 RBC 4.53 L (4.63-6.08) M/mm3 Hgb 14.2 (13.7-17.5) gm/dl Hct 43.2 (40.1-51.0) % MCV 95.4 H (79.0-92.2) fl MCH 31.3 (25.7-32.2) pg MCHC 32.9 (32.2-35.5) g/dl RDW Std Deviation 47.2 H (35.1-43.9) fL Plt Count 193 (163-337) K/mm3 MPV 11.8 (9.4-12.3) fl Neut % (Auto) 83.0 H (34.0-67.9) % Lymph % (Auto) 8.9 L (21.8-53.1) % Dukes % (Auto) 7.5 (5.3-12.2) % Eos % (Auto) 0.1 L (0.8-7.0) Baso % (Auto) 0.1 (0.1-1.2) % Neut # (Auto) 11.21 H (1.78-5.38) K/mm3 Lymph # (Auto) 1.21 L (1.32-3.57) K/mm3 Dukes # (Auto) 1.02 H (0.30-0.82) K/mm3 Eos # (Auto) 0.02 L (0.04-0.54) K/mm3 Baso # (Auto) 0.01 (0.01-0.08) K/mm3 Manual Slide Review Abnormal smear Sodium 142 (136-145) mEq/L Potassium 3.9 (3.5-5.1) mEq/L Chloride 107 (98-107) mEq/L Carbon Dioxide 26 (21-32) mEq/L Anion Gap 12.9 (5-15) BUN 13 (7-18) mg/dL Creatinine 0.8 (0.7-1.3) mg/dL Est Cr Clr Drug Dosing 129.27 mL/min Estimated GFR (MDRD) > 60 (>60) mL/min BUN/Creatinine Ratio 16.3 (14-18) Glucose 125 H (74-106) mg/dL POC Glucose 265 H (70-105) mg/dL Lactic Acid (0.4-2.0) mmol/L Calcium 8.6 (8.5-10.1) mg/dL Magnesium 1.9 (1.8-2.4) mg/dl Vancomycin Trough (10.0-20.0) 07/01/19 07/01/19 07/01/19 Range/Units 04:30 04:30 06:09 WBC (4.23-9.07) K/mm3 RBC (4.63-6.08) M/mm3 Hgb (13.7-17.5) gm/dl Hct (40.1-51.0) % MCV (79.0-92.2) fl MCH (25.7-32.2) pg MCHC (32.2-35.5) g/dl RDW Std Deviation (35.1-43.9) fL Plt Count (163-337) K/mm3 MPV (9.4-12.3) fl Neut % (Auto) (34.0-67.9) % Lymph % (Auto) (21.8-53.1) % Dukes % (Auto) (5.3-12.2) % Eos % (Auto) (0.8-7.0) Baso % (Auto) (0.1-1.2) % Neut # (Auto) (1.78-5.38) K/mm3 Lymph # (Auto) (1.32-3.57) K/mm3 Dukes # (Auto) (0.30-0.82) K/mm3 Eos # (Auto) (0.04-0.54) K/mm3 Baso # (Auto) (0.01-0.08) K/mm3 Manual Slide Review Sodium (136-145) mEq/L Potassium (3.5-5.1) mEq/L Chloride (98-107) mEq/L Carbon Dioxide (21-32) mEq/L Anion Gap (5-15) BUN (7-18) mg/dL Creatinine (0.7-1.3) mg/dL Est Cr Clr Drug Dosing mL/min Estimated GFR (MDRD) (>60) mL/min BUN/Creatinine Ratio (14-18) Glucose (74-106) mg/dL POC Glucose 112 H (70-105) mg/dL Lactic Acid 1.7 (0.4-2.0) mmol/L Calcium (8.5-10.1) mg/dL Magnesium (1.8-2.4) mg/dl Vancomycin Trough 15.2 (10.0-20.0) 07/01/19 Range/Units 11:43 WBC (4.23-9.07) K/mm3 RBC (4.63-6.08) M/mm3 Hgb (13.7-17.5) gm/dl Hct (40.1-51.0) % MCV (79.0-92.2) fl MCH (25.7-32.2) pg MCHC (32.2-35.5) g/dl RDW Std Deviation (35.1-43.9) fL Plt Count (163-337) K/mm3 MPV (9.4-12.3) fl Neut % (Auto) (34.0-67.9) % Lymph % (Auto) (21.8-53.1) % Dukes % (Auto) (5.3-12.2) % Eos % (Auto) (0.8-7.0) Baso % (Auto) (0.1-1.2) % Neut # (Auto) (1.78-5.38) K/mm3 Lymph # (Auto) (1.32-3.57) K/mm3 Dukes # (Auto) (0.30-0.82) K/mm3 Eos # (Auto) (0.04-0.54) K/mm3 Baso # (Auto) (0.01-0.08) K/mm3 Manual Slide Review Sodium (136-145) mEq/L Potassium (3.5-5.1) mEq/L Chloride (98-107) mEq/L Carbon Dioxide (21-32) mEq/L Anion Gap (5-15) BUN (7-18) mg/dL Creatinine (0.7-1.3) mg/dL Est Cr Clr Drug Dosing mL/min Estimated GFR (MDRD) (>60) mL/min BUN/Creatinine Ratio (14-18) Glucose (74-106) mg/dL POC Glucose 118 H (70-105) mg/dL Lactic Acid (0.4-2.0) mmol/L Calcium (8.5-10.1) mg/dL Magnesium (1.8-2.4) mg/dl Vancomycin Trough (10.0-20.0) LISA Results - Last 24 hrs: Microbiology 06/29/19 11:58 Aerobic Blood Culture - Preliminary Blood - Venous NO GROWTH AFTER 2 DAYS Anaerobic Blood Culture - Preliminary NO GROWTH AFTER 2 DAYS 06/29/19 11:45 Aerobic Blood Culture - Preliminary Blood - Venous - Lab Draw NO GROWTH AFTER 2 DAYS Anaerobic Blood Culture - Preliminary NO GROWTH AFTER 2 DAYS 06/28/19 22:00 Gram Stain - Final Cerebral Spinal Fluid CSF Culture - Preliminary NO GROWTH AFTER 3 DAYS Med Orders - Current: Current Medications Discontinued Medications Acetaminophen (Tylenol) 650 mg PO Q4H PRN PRN Reason: Pain (Mild 1-3)/fever Hydrocodone Bitart/Acetaminophen ([place] 325-5 Mg) 1 tab PO Q4H PRN PRN Reason: Pain (moderate 4-6) Albuterol/Ipratropium (Duoneb 3.0-0.5 Mg/3 Ml) 3 ml NEB Q4H PRN PRN Reason: Shortness Of Breath/wheezing Aspirin (Aspirin) 81 mg PO BEDTIME [facility] Last Admin: 06/30/19 21:21 Dose: 81 mg Bisacodyl (Dulcolax) 5 mg PO DAILY PRN PRN Reason: Constipation Chlordiazepoxide HCl (Librium) 25 mg PO Q8H PRN PRN Reason: Withdrawal Symptoms Clonidine HCl (Catapres) 0.1 mg PO Q4H PRN PRN Reason: Agitation Last Admin: 06/29/19 12:16 Dose: 0.1 mg Dexamethasone (Dexamethasone) 20 mg IVPUSH Q6H [facility] Last Admin: 06/29/19 02:04 Dose: 20 mg Dexamethasone (Dexamethasone) 20 mg IVPUSH Q6H [facility] Last Admin: 06/30/19 13:32 Dose: 20 mg Dextrose/Water (Dextrose 50% In Water) 50 ml IVPUSH ASDIRECTED PRN PRN Reason: Hypoglycemia Docusate Sodium (Colace) 100 mg PO BID PRN PRN Reason: Constipation Folic Acid (Folic Acid) 1 mg SUBCUT ONETIME ONE Stop: 06/28/19 18:56 Last Admin: 06/28/19 20:22 Dose: 1 mg Folic Acid (Folic Acid) 1 mg PO DAILY [facility] Stop: 07/01/19 09:01 Last Admin: 07/01/19 08:00 Dose: 1 mg Gadobenate Dimeglumine (Multihance) 20 ml IVPUSH ONETIME ONE Stop: 06/29/19 09:16 Last Admin: 06/29/19 09:58 Dose: 20 ml Haloperidol Lactate (Haldol) 2 mg IM Q4H PRN PRN Reason: Agitation Hydromorphone HCl (Dilaudid) 0.25 mg IVPUSH Q2H PRN PRN Reason: Pain (severe 7-10) Sodium Chloride (Normal Saline) 1,000 mls @ 1,000 mls/hr IV .BOLUS [facility] Last Admin: 06/28/19 13:23 Dose: 1,000 mls/hr Lactated Ringer's (Ringers, Lactated) 1,000 mls @ 1,000 mls/hr IV .BOLUS ONE Stop: 06/28/19 17:05 Last Admin: 06/28/19 16:18 Dose: 1,000 mls/hr Lactated Ringer's (Ringers, Lactated) 1,000 mls @ 150 mls/hr IV ASDIRECTED [facility] Last Admin: 06/28/19 17:31 Dose: 150 mls/hr Promethazine HCl 6.25 mg/ (Sodium Chloride) 50.25 mls @ 100 mls/hr IV Q6H PRN PRN Reason: Nausea/Vomiting Dextrose/Sodium Chloride (Dextrose 5%-Normal Saline) 1,000 mls @ 125 mls/hr IV ASDIRECTED [facility] Last Admin: 06/29/19 04:11 Dose: 125 mls/hr Thiamine HCl 100 mg/ Sodium (Chloride) 51 mls @ 100 mls/hr IV DAILY [facility] Ceftriaxone Sodium 2 gm/ (Sodium Chloride) 100 mls @ 200 mls/hr IV Q24H [facility] Last Admin: 06/28/19 22:44 Dose: Not Given Vancomycin HCl 1,000 mg/ (Sodium Chloride) 250 mls @ 166.667 mls/hr IV Q12H [facility] Last Admin: 06/28/19 19:55 Dose: Not Given Vancomycin HCl 1.5 gm/ Sodium (Chloride) 500 mls @ 333.333 mls/hr IV Q8H [facility] Thiamine HCl 100 mg/ Sodium (Chloride) 101 mls @ 198.039 mls/hr IV ONETIME ONE Stop: 06/28/19 20:30 Last Admin: 06/28/19 20:28 Dose: 198.039 mls/hr Acyclovir 1,000 mg/ Sodium (Chloride) 120 mls @ 100 mls/hr IV Q8H [facility] Last Admin: 06/28/19 22:44 Dose: Not Given Vancomycin HCl 2 gm/ Sodium (Chloride) 500 mls @ 250 mls/hr IV ONETIME ONE Stop: 06/29/19 00:29 Last Admin: 06/28/19 22:23 Dose: 250 mls/hr Vancomycin HCl 1.5 gm/ Sodium (Chloride) 500 mls @ 333.333 mls/hr IV Q8H [facility] Last Admin: 06/29/19 14:41 Dose: 333.333 mls/hr Acyclovir 1,000 mg/ Sodium (Chloride) 120 mls @ 100 mls/hr IV Q8H [facility] Ceftriaxone Sodium 2 gm/ (Sodium Chloride) 100 mls @ 200 mls/hr IV Q24H [facility] Acyclovir 1,000 mg/ Sodium (Chloride) 120 mls @ 100 mls/hr IV Q8H [facility] Last Admin: 06/29/19 06:00 Dose: 100 mls/hr Ceftriaxone Sodium 2 gm/ (Sodium Chloride) 100 mls @ 200 mls/hr IV Q24H [facility] Last Admin: 06/28/19 23:31 Dose: 200 mls/hr Magnesium Sulfate 2 gm/ Premix 50 mls @ 25 mls/hr IV ONETIME ONE Stop: 06/29/19 10:48 Last Admin: 06/29/19 10:18 Dose: 25 mls/hr Ceftriaxone Sodium 2 gm/ (Sodium Chloride) 100 mls @ 200 mls/hr IV Q12H [facility] Last Admin: 06/30/19 23:44 Dose: 200 mls/hr Acyclovir 730 mg/ Sodium (Chloride) 114.6 mls @ 95.5 mls/hr IV Q8H [facility] Last Admin: 07/01/19 08:08 Dose: Not Given Lactated Ringer's (Ringers, Lactated) 1,000 mls @ 250 mls/hr IV ASDIRECTED [facility] Last Admin: 06/30/19 09:18 Dose: 250 mls/hr Lactated Ringer's (Ringers, Lactated) 500 mls @ 999 mls/hr IV .BOLUS ONE Stop: 06/29/19 13:17 Last Admin: 06/29/19 12:53 Dose: 999 mls/hr Lactated Ringer's (Ringers, Lactated) Confirm Administered Dose 1,000 mls @ as directed .ROUTE .STK-MED ONE Stop: 06/29/19 12:51 Last Admin: 06/29/19 13:05 Dose: Not Given Vancomycin HCl 2 gm/ Sodium (Chloride) 500 mls @ 333.333 mls/hr IV Q8H [facility] Last Admin: 06/29/19 22:23 Dose: Not Given Vancomycin HCl 2 gm/ Sodium (Chloride) 500 mls @ 333.333 mls/hr IV Q8H [facility] Last Admin: 07/01/19 06:48 Dose: 333.333 mls/hr Lactated Ringer's (Ringers, Lactated) 1,000 mls @ 999 mls/hr IV .BOLUS ONE Stop: 06/30/19 00:28 Last Admin: 06/29/19 23:42 Dose: 999 mls/hr Magnesium Sulfate 2 gm/ Premix 50 mls @ 25 mls/hr IV ONETIME ONE Stop: 06/30/19 10:59 Last Admin: 06/30/19 09:20 Dose: 25 mls/hr Lactated Ringer's (Ringers, Lactated) 1,000 mls @ 125 mls/hr IV ASDIRECTED [facility] Last Admin: 07/01/19 06:48 Dose: 125 mls/hr Acyclovir 730 mg/ Sodium (Chloride) 114.6 mls @ 95.5 mls/hr IV Q8H [facility] Last Admin: 07/01/19 16:52 Dose: Not Given Insulin Human Lispro (Humalog) 0 unit SUBCUT Q6H [facility]; Protocol Last Admin: 06/29/19 05:51 Dose: 2 units Insulin Human Lispro (Humalog) 0 unit SUBCUT Q6HR [facility]; Protocol Last Admin: 07/01/19 12:15 Dose: Not Given Lorazepam (Ativan) 3 mg IVPUSH ONETIME ONE Stop: 06/28/19 18:51 Last Admin: 06/28/19 19:08 Dose: 3 mg Lorazepam (Ativan) 1 mg IV Q6H PRN PRN Reason: Anxiety Last Admin: 06/29/19 20:24 Dose: 1 mg Lorazepam (Ativan) 0 mg IVPUSH Q4H PRN; Protocol PRN Reason: Withdrawal Symptoms Lorazepam (Ativan) 2 mg IVPUSH ONETIME ONE Stop: 06/29/19 08:58 Last Admin: 06/29/19 10:23 Dose: 2 mg Lorazepam (Ativan) 2 mg IVPUSH Q4H PRN PRN Reason: Seizures Mirtazapine (Remeron) 15 mg PO BEDTIME [facility] Last Admin: 06/30/19 21:21 Dose: 15 mg Miscellaneous Information (Remove Patch) 1 ea TRDERM Q24H [facility] Last Admin: 07/01/19 11:48 Dose: 1 ea Multivitamins (Thera) 1 each PO ONETIME ONE Stop: 06/28/19 18:56 Last Admin: 06/28/19 22:39 Dose: Not Given Nicotine (Habitrol) 14 mg TRDERM Q24H [facility] Last Admin: 07/01/19 11:47 Dose: 14 mg Ondansetron HCl (Zofran) 4 mg IV Q6H PRN PRN Reason: Nausea/Vomiting Pantoprazole Sodium (Protonix Iv) 40 mg IV Q12HR [facility] Last Admin: 06/29/19 08:24 Dose: 40 mg Pantoprazole Sodium (Protonix) 40 mg PO BID [facility] Last Admin: 07/01/19 08:00 Dose: 40 mg Polyethylene Glycol (Miralax) 17 gm PO DAILY PRN PRN Reason: Constipation Senna/Docusate Sodium (Senna Plus) 1 tab PO BID PRN PRN Reason: Constipation Simvastatin (Zocor) 20 mg PO BEDTIME [facility] Last Admin: 06/30/19 21:21 Dose: 20 mg Sodium Chloride (Saline Flush) 10 ml FLUSH ASDIRECTED PRN PRN Reason: Keep Vein Open Last Admin: 06/28/19 13:25 Dose: 10 ml Sodium Chloride (Saline Flush) 10 ml FLUSH ONETIME PRN PRN Reason: Keep Vein Open Stop: 06/29/19 18:00 Last Admin: 06/29/19 09:59 Dose: 10 ml Sodium Chloride (Normal Saline) 30 ml IV ONETIME ONE Stop: 06/29/19 09:16 Last Admin: 06/29/19 09:59 Dose: 30 ml Thiamine HCl (Vitamin B-1) 100 mg IVPUSH DAILY [facility] Last Admin: 06/29/19 08:22 Dose: 100 mg Thiamine HCl (Vitamin B-1) 100 mg PO DAILY [facility] Last Admin: 07/01/19 08:00 Dose: 100 mg Topiramate (Topamax) 25 mg PO BID [facility] Last Admin: 07/01/19 08:00 Dose: 25 mg Vancomycin HCl (Pharmacy To Dose - Vancomycin) 1 dose .XX ASDIRECTED PRN PRN Reason: RX TO DOSE VANCOMYCIN
== END 2019-07-01 17:20 | disposition home or self-care (01) | DRG 52 ==
LOC: JD.ED 13:00 → JD.MS 17:36 → OBSVTOIN 06-29 09:15
PROVIDERS: ADMIT Internal Medicine; ATTEND Internal Medicine
PROC: 009U3ZX Drainage of Spinal Canal, Percutaneous Approach, Diagnostic (ICD-10-PCS; principal; 2019-06-30)
DX: G92 Toxic encephalopathy (principal); F41.9 Anxiety disorder, unspecified; F43.9 Reaction to severe stress, unspecified; D72.829 Elevated white blood cell count, unspecified; E10.65 Type 1 diabetes mellitus with hyperglycemia; E03.9 Hypothyroidism, unspecified; F17.200 Nicotine dependence, unspecified, uncomplicated; G31.84 Mild cognitive impairment of uncertain or unknown etiology; T40.4X5A Adverse effect of other synthetic narcotics, initial encounter; T42.8X5A Adverse effect of antiparkinsonism drugs and other central muscle-tone depressants, initial encounter; F32.9 Major depressive disorder, single episode, unspecified; E78.00 Pure hypercholesterolemia, unspecified; G89.29 Other chronic pain; M54.2 Cervicalgia; M54.9 Dorsalgia, unspecified; Z79.84 Long term (current) use of oral hypoglycemic drugs; Z79.899 Other long term (current) drug therapy; Z87.440 Personal history of urinary (tract) infections
CPT/HCPCS: 36415; 62270; 70450; 70450-26; 70544; 70544-26; 70548; 70548-26; 70551; 70551-26; 71045; 71045-26; 80048; 80053; 80061; 80202; 80306; 81001; 82043; 82140; 82945; 82962; 83605; 83735; 84157; 84439; 84443; 84484; 85025; 85379; 85652; 86140; 86592; 86694; 86695; 86696; 87040; 87070; 87205; 87483; 87486; 87581; 87632; 87798; 87899; 89050; 93005; 93010; 93306; 95816; 96360; 96361; 96365; 96366; 96367; 96368; 96372; 96375; 96376; 97161-GP; 97165-GO; 99285; 99285-25; A9270-GY; A9577; C9113; G0378; G0480; J0133; J0696; J1100; J1815-GY; J2060; J3370; J3411; J3475; J7030; J7040; J7042; J7120; Q3014

== ENCOUNTER 2020-06-07 00:45 | Emergency (ER) | payer BC ==
[2020-06-07] MEDS ORDERED: Sodium Chloride 0.9% 10 ML Syringe FLUSH PRN (01:14)
[2020-06-07] MEDS ORDERED: Ondansetron 4 MG/2 ML SDV IVPUSH ONE (01:14)
[2020-06-07] MEDS ORDERED: Sodium Chloride 0.9% 1,000 ML IV SCH (01:15)
[2020-06-07] MEDS ORDERED: Ketorolac 30 MG/ML SDV IVPUSH ONE (01:16)
[2020-06-07] MEDS ORDERED: HYDROmorphone 1 MG/ML Syringe IVPUSH ONE (01:16)
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
[2020-06-07] MEDS ORDERED: Tamsulosin 0.4 MG Cap.ER PO ONE (02:40)
[2020-06-07] MEDS ORDERED: HYDROmorphone 0.5 MG/0.5 ML Syringe IVPUSH ONE (02:40)
--- NOTE | 2020-06-07 06:43 | CT ---
CT abdomen and pelvis Technique: Multiple axial sections were obtained from above the dome of the diaphragm inferiorly through the pubic symphysis. Intravenous and oral contrast not utilized. Study has been performed as a ureteral stone protocol. Findings: Right ureter is mildly prominent in size. This finding is caused by a partially obstructing 2 mm calculus within the distal right ureter close to the UVJ. No other ureteral stones are seen. No renal calculi are appreciated. Visualized lung bases show nothing acute. Prior gastric surgery is noted. Adrenal glands show no nodule. Gallbladder contains no calcified gallstones. Pancreas shows no discrete abnormality. Aorta shows no aneurysm. No retroperitoneal adenopathy or mesenteric abnormalities are seen. No pelvic mass or adenopathy is noted. No free fluid or inflammatory change is appreciated. Appendix not visualized with certainty. Bone window settings were reviewed. Bilateral spondylitic defects are noted at L5-S1 with mild spondylolisthesis of about 8 mm. Vacuum disc phenomena seen at L5-S1. Impression: 1. 2 mm partially obstructing stone within the distal right ureter close to the UVJ. No renal calculi are seen. 2. Other nonacute findings as noted above. Diagnostic code #3 Agree with preliminary report issued by [facility] ([facility] preliminary report dictated on 06/07/20, 3 AM Central Daylight Time) Study was dictated in MDT
== END 2020-06-07 02:59 | disposition home or self-care (01) ==
LOC: JD.ED 00:45
DX: N20.2 Calculus of kidney with calculus of ureter (principal); J45.909 Unspecified asthma, uncomplicated; E78.00 Pure hypercholesterolemia, unspecified; M19.90 Unspecified osteoarthritis, unspecified site; F41.9 Anxiety disorder, unspecified; F32.9 Major depressive disorder, single episode, unspecified; E11.9 Type 2 diabetes mellitus without complications; E66.9 Obesity, unspecified; Z87.891 Personal history of nicotine dependence; Z79.899 Other long term (current) drug therapy; Z68.42 Body mass index [BMI] 45.0-49.9, adult
CPT/HCPCS: 36415; 74176; 80053; 81001; 83690; 85025; 96361; 96374; 96375; 96376; 99284; A9270; J1170; J1885; J2405; J7030

== ENCOUNTER 2021-05-09 10:14 | Emergency (ER) | payer OTHER, BC ==
--- NOTE | 2021-05-09 12:16 | US ---
Right lower extremity deep venous ultrasound: Duplex and color Doppler evaluation was obtained of the right common femoral, proximal greater saphenous, superficial femoral, popliteal, posterior tibial and peroneal veins. Left common femoral vein was also evaluated. Findings: Lack of compressibility is seen within the posterior and peroneal veins on the right side. These veins show normal phasic flow and augmentation. Other visualized veins show normal compression, phasic flow and augmentation. Large fluid collection is seen within the medial knee which is difficult to measure on the ultrasound exam but is around 6 cm. Differential includes large popliteal cyst versus liquefied hematoma. Impression: 1. Large fluid collection measuring around 6 cm. Differential includes large popliteal cyst versus liquefied hematoma. 2. No findings of venous thrombosis are seen within the right lower extremity or within the left common femoral vein. Diagnostic code #3
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
== END 2021-05-09 14:00 | disposition home or self-care (01) ==
LOC: JD.ED 10:14
DX: S80.01XA Contusion of right knee, initial encounter (principal); E11.8 Type 2 diabetes mellitus with unspecified complications; E66.9 Obesity, unspecified; Z79.84 Long term (current) use of oral hypoglycemic drugs; Z68.43 Body mass index [BMI] 50.0-59.9, adult; Z79.899 Other long term (current) drug therapy; W22.8XXA Striking against or struck by other objects, initial encounter; Y92.69 Other specified industrial and construction area as the place of occurrence of the external cause
CPT/HCPCS: 36415; 85025; 86140; 93971-26-RT; 93971-RT; 99283; 99284-25